=== PATIENT | male | born 1970 | race Two or more races ===

== ENCOUNTER 2020-06-24 13:10 | Outpatient (REF) | payer OTHER, SELFPAY ==
[2020-06-25 09:26] LABS: Rubella IgG Antibody 6.99 Index; Rubeola IgG (Measles) <13.50 AU/mL
[2020-06-27 03:54] LABS: HBsAGNum1 0.15 S/CO (0.00-0.99); Hepatitis B Surface Antigen Negative (Negative)
[2020-06-27 04:08] LABS: HBc Num1 0.06 S/CO (0.00-0.79); Hepatitis B Core Antibody Nonreactive (Nonreactive); ~HepC Num1 0.17 S/CO (0.00-0.79); ~Hepatitis B Surface Antibody NONREACTIVE (Nonreactive); ~Hepatitis C Antibody Nonreactive (Nonreactive)
[2020-06-28 11:12] LABS: TS Negative Control Passed; TS Panel A 0; TS Panel B 0; TS Positive Control Passed; TSpotTB Negative (SeeBelow)
== END 2020-06-24 13:11 | disposition home or self-care (01) ==
LOC: HO.LAB 13:10
PROVIDERS: PCP Internal Medicine; Visit Provider Internal Medicine
DX: Z02.1 Encounter for pre-employment examination (principal)
CPT/HCPCS: 36415; 86481; 86704; 86706; 86735; 86762; 86765; 86787; 86803; 87340

== ENCOUNTER 2020-10-29 09:49 | Emergency (ER) | payer OTHER, SELFPAY ==
--- NOTE | ~2020-10-29 | XR_ITS ---
EXAMINATION: CHEST THORACIC SPINE CLINICAL INFORMATION: Back pain. Chest pain COMPARISON: None TECHNIQUE: Frontal and lateral views of the thoracic spine. Frontal and lateral views of the chest FINDINGS: Thoracic spine: There are 12 rib-bearing vertebrae. The alignment is normal. No acute fracture, focal lesion or loss of volume. Minor marginal osteophytes. The endplates appear sharply defined. The pedicles appear intact. No convincing paraspinal abnormality. CHEST: Devices overlie the patient. Jewelry obscures some of the left lower chest. No mediastinal or hilar mass. The vasculature is normal. I suspect a small patchy opacity at the right base medially perhaps in the medial segment of the middle lobe. The lungs are otherwise well pneumatized and aerated. No pleural fluid or pneumothorax. XR/XR thoracic spine 2V IMPRESSION: Suspect a small opacity in the right middle lobe. This could represent a small area of atelectasis. No acute abnormality of the thoracic spine
--- NOTE | ~2020-10-29 | XR_ITS ---
EXAMINATION: CHEST THORACIC SPINE CLINICAL INFORMATION: Back pain. Chest pain COMPARISON: None TECHNIQUE: Frontal and lateral views of the thoracic spine. Frontal and lateral views of the chest FINDINGS: Thoracic spine: There are 12 rib-bearing vertebrae. The alignment is normal. No acute fracture, focal lesion or loss of volume. Minor marginal osteophytes. The endplates appear sharply defined. The pedicles appear intact. No convincing paraspinal abnormality. CHEST: Devices overlie the patient. Jewelry obscures some of the left lower chest. No mediastinal or hilar mass. The vasculature is normal. I suspect a small patchy opacity at the right base medially perhaps in the medial segment of the middle lobe. The lungs are otherwise well pneumatized and aerated. No pleural fluid or pneumothorax. XR/XR chest 2V IMPRESSION: Suspect a small opacity in the right middle lobe. This could represent a small area of atelectasis. No acute abnormality of the thoracic spine
[2020-10-29 09:54] VITALS: BP 143/92; PULSE 96; RESP 18; TEMP 36.8; O2SAT 99; BMI 35.0
--- NOTE | 2020-10-29 10:02 | ED.BACK ---
HPI - Back Pain/Injury General Chief Complaint: Back Pain/Injury Stated Complaint: BACK PAIN Time Seen by Provider: 10/29/20 10:02 Source: patient Mode of arrival: ambulatory Limitations: no limitations History of Present Illness HPI Narrative: Patient with midback pain, had a coughing attack and heartburn. Had chest pain radiating to the back. pain worse with movement and deep breathing. Patient denies prior stress test. MD elicited complaint: back pain Pertinent past history: prior back pain Onset (ago): day(s) Timing: intermittent and improved Severity: moderate Quality: sharp Location: thoracic spine Radiation: none Exacerbating factors: movement, deep breaths and coughing/sneezing Relieving factors: other (rest) Context: other (had a coughing fit) Related Data Previous Rx's Medication Instructions Recorded pantoprazole 40 mg tablet,delayed 40 mg PO DAILY #90 tab 04/20/20 release meloxicam 15 mg tablet 15 mg PO DAILY #30 tab 05/18/20 amlodipine 10 mg tablet 10 mg PO DAILY #90 tab 10/14/20 cyclobenzaprine 10 mg PO TID #10 tab 10/29/20 naproxen [Naprosyn] 500 mg PO BID #20 tab 10/29/20 Allergies Allergy/AdvReac Type Severity Reaction Status Date / Time No Known Allergies Allergy Verified 05/21/20 07:59 [No Known Allergies*] Review of Systems Constitutional: Constitutional: Reports no additional constitutional complaints Eyes: Eyes: Reports no additional eye complaints ENT: Denies dizziness Cardiovascular: Cardiovascular: Reports no additional cardiovascular complaints Respiratory: Respiratory: Reports as per HPI Gastrointestinal: Gastrointestinal: Reports no additional gastrointestinal complaints Musculoskeletal: Musculoskeletal: Reports no additional musculoskeletal complaints Integumentary/Breasts: Skin/Breast: Denies rash Neurologic: Reports system reviewed and no additional complaints, except as documented, Denies dizziness and Denies Sensory deficit (Neuro) Psychiatric: Psychiatric: Denies anxiety PMFSH Past Medical History Medical History Essential (primary) hypertension GERD without esophagitis History of pilonidal cyst Obesity (BMI 30-39.9) Tobacco use disorder Surgical History History of appendectomy History of incision and drainage Family History Family History Mother Myocardial infarction CVD (cardiovascular disease) Father Stomach cancer Son In good health Daughter In good health Daughter In good health Daughter In good health Social History Social History Alcohol intake: current Alcohol intake frequency: holidays/special occasions only Patient Tobacco Use Status: Current everyday Tobacco user Cigarettes Per Day: 3 Use of substances other than those prescribed or required for medical reasons: No Advance Directives: No Advance Directives Information Provided: No Physical Exam Vital Signs: Vital Signs: Last Vital Signs Temp 98.4 F 10/29/20 12:59 Pulse 69 10/29/20 12:59 Resp 16 10/29/20 12:59 BP 133/89 10/29/20 12:59 Pulse Ox 99 10/29/20 12:59 Body Mass Index 35.0 Const: General: healthy appearing Nutritional Appearance: average body habitus Orientation/consciousness: oriented to person and patient oriented x3 Limitations: no limitations HENMT: Head: Yes normal to inspection Ears: external ears normal General nose exam: Normal external nose present Mouth: Normal oral and palatal mucosa present and oropharynx normal Throat: Yes posterior oropharynx normal Eyes: General: appearance normal, both eyes and all related structures Neck: Other: supple Neck: Yes normal visual inspection Chest: Chest palpation & inspection: normal inspection of the chest Resp: Auscultation: clear to auscultation bilaterally Cardio: Jugular venous distension: no JVD Rate: regular rate Rhythm: regular rhythm Heart sounds: S1 normal heart sound present and S2 normal heart sound present GI: Inspection: Yes normal to inspection Palpation (GI): Soft to palpation, nontender and No hepatosplenomegaly present Auscultation: normal bowel sounds Back/Spine/Pelvis: Other: mid thoracic back pain to palpation Skin: General skin exam: no rashes or lesions noted Neuro: General: oriented to person and patient oriented x3 Cranial nerves: Yes CN's II-XII intact bilaterally Motor exam (neuro): 5/5 motor strength present throughout Sensory Exam: No Sensory deficit (Neuro) Extrem: General: Yes normal to inspection Psych: Appearance: grossly normal Course Reevaluation(s) Reevaluation #1: Patient with no evidence of cardiac disease, EKG, troponin, are normal. Xray are normal, Patient with point tenderness will dc on NSAIDs and flexeril Time: 14:42 MDM - Back Pain/Injury Lab Data Result diagrams: 10/29/20 13:20 10/29/20 10:30 Labs: Lab Results 10/29/20 10/29/20 10/29/20 Range/Units 10:30 10:30 13:20 WBC 8.7 (4.8-10.8) X10*3/uL RBC 4.39 L (4.60-5.80) X10*6/uL Hgb 14.0 (14.0-18.0) g/dl Hct 40.8 L (42-52) % MCV 92.9 (80-98) fL MCH 31.9 (27.0-33.0) pg MCHC 34.3 (31.0-36.0) g/dl RDW 11.7 (11.0-16.0) % Plt Count 246 (160-400) X10*3/uL MPV 9.6 (9.4-12.4) fL Immature Gran % (Auto) 0.2 (0.0-0.4) % Neut % (Auto) 60.8 (45-73) % Lymph % (Auto) 26.9 (20-40) % [place] % (Auto) 9.1 (2-11) % Eos % (Auto) 2.4 (0-4) % Baso % (Auto) 0.6 (0-2) % Lymph # (Auto) 2.3 (1.2-4.9) X10*3/uL [place] # (Auto) 0.8 (0.1-1.2) X10*3/uL Eos # (Auto) 0.2 (0.0-0.4) X10*3/uL Baso # (Auto) 0.1 (0.0-0.2) X10*3/uL Abs Immat Gran (auto) 0.02 (0.00-0.03) X10*3/uL Absolute Neuts (auto) 5.3 (2.0-8.3) X10*3/uL Absolute Nucleated RBC 0.000 (0.0-0.012) X10*3/uL Nucleated RBC % (auto) 0.0 (0.0-0.2) /100WBC Sodium 139 (135-145) mmol/L Potassium 4.5 (3.3-5.1) mmol/L Chloride 107 (96-108) mmol/L Carbon Dioxide 24 (22-29) mmol/L Anion Gap 13 (12-20) BUN 10 (9-16) mg/dL Creatinine 0.86 (0.5-1.4) mg/dL Estim Creat Clear Calc 106.5 Estimated GFR > 60 Random Glucose 91 (60-115) mg/dL Calcium 8.9 (8.4-10.2) mg/dL Total Bilirubin 0.5 (0.0-1.0) mg/dL Direct Bilirubin 0.2 (0.0-0.5) mg/dL AST 29 (5-37) U/L ALT 20 (0-40) U/L Alkaline Phosphatase 92 (39-117) U/L Troponin I High Sens < 3.5 (<3.5-35.0) ng/L Total Protein 7.3 (6.5-8.0) g/dL Albumin 4.0 (3.5-5.0) g/dL Lipase 26 (8-78) U/L Imaging Data Chest x-ray: Radiologist's impression: Suspect a small opacity in the right middle lobe. This could represent a small area of atelectasis. No acute abnormality of the thoracic spine thoracic spine: Radiologist's impression: Suspect a small opacity in the right middle lobe. This could represent a small area of atelectasis. No acute abnormality of the thoracic spine ECG Data Attestation: I personally reviewed and interpreted this ECG as follows: Interpretation: normal sinus rate of 85, no st or twave changes Discharge Plan Discharge Clinical Impression: Thoracic back pain Patient Disposition: Home, Self-Care Instructions: Back Pain (ED) Prescriptions: New cyclobenzaprine 10 mg tablet 10 mg PO TID Qty: 10 RF: 0 naproxen [Naprosyn] 500 mg tablet 500 mg PO BID Qty: 20 RF: 0 No Action pantoprazole 40 mg tablet,delayed release (DR/EC) 40 mg PO DAILY Qty: 90 RF: 1 meloxicam 15 mg tablet 15 mg PO DAILY Qty: 30 RF: 0 amlodipine 10 mg tablet 10 mg PO DAILY Qty: 90 RF: 1 Referrals: Po,Trae Keenan MD [Primary Care Provider] - 5 days
--- NOTE | 2020-10-29 10:05 | ECG_ITS ---
Test Reason : BACK PAIN Blood Pressure : / mmHG Vent. Rate : 087 BPM Atrial Rate : 087 BPM P-R Int : 154 ms QRS Dur : 102 ms QT Int : 362 ms P-R-T Axes : 052 -06 017 degrees QTc Int : 435 ms Normal sinus rhythm Normal ECG No previous ECGs available Referred By: Iglesia Harmon Electronically Signed By:ASHLEY CASTLE MD
[2020-10-29 10:13] VITALS: BP 136/92; PULSE 93; RESP 20; O2SAT 98
--- NOTE | 2020-10-29 10:38 | PC.NURSE ---
lungs - cta all lobes.
[2020-10-29 11:00] LABS: Alanine Aminotransferase 20 U/L (0-40); Alkaline Phosphatase 92 U/L (39-117); Anion Gap 13 (12-20); Aspartate Amino Transferase 29 U/L (5-37); Bilirubin Direct 0.2 mg/dL (0.0-0.5); Bilirubin Total 0.5 mg/dL (0.0-1.0); Blood Urea Nitrogen 10 mg/dL (9-16); Calcium 8.9 mg/dL (8.4-10.2); Carbon Dioxide 24 mmol/L (22-29); Chloride 107 mmol/L (96-108); Creatinine Clr Calc Pharmacy 106.5; Estimated Glomerular Filt Rate > 60; Glucose Random 91 mg/dL (60-115); Lipase 26 U/L (8-78); Potassium 4.5 mmol/L (3.3-5.1); Sodium 139 mmol/L (135-145); Total Protein 7.3 g/dL (6.5-8.0)
[2020-10-29 11:03] LABS: Troponin-I High Sensitivity < 3.5 ng/L (<3.5-35.0)
[2020-10-29 12:59] VITALS: BP 133/89; PULSE 69; RESP 16; TEMP 36.9; O2SAT 99
[2020-10-29] MEDS: Ketorolac Tromethamine 15 MG/ML VIAL 30 MG IVPUSH (13:04)
[2020-10-29] MEDS: Famotidine 20 MG TABLET PO (13:04)
[2020-10-29 14:01] LABS: Basophils Absolute Auto 0.1 X10*3/uL (0.0-0.2); Basophils Percent Auto 0.6 % (0-2); Eosinophils Absolute Auto 0.2 X10*3/uL (0.0-0.4); Eosinophils Percent Auto 2.4 % (0-4); Hematocrit 40.8 % (42-52); Imm Gran Abs Auto 0.02 X10*3/uL (0.00-0.03); Imm Gran Pct Auto 0.2 % (0.0-0.4); Lymphocytes Absolute Auto 2.3 X10*3/uL (1.2-4.9); Lymphocytes Percent Auto 26.9 % (20-40); Mean Corpuscular HGB Conc 34.3 g/dl (31.0-36.0); Mean Corpuscular Hemoglobin 31.9 pg (27.0-33.0); Mean Corpuscular Volume 92.9 fL (80-98); Mean Platelet Volume 9.6 fL (9.4-12.4); Monocytes Absolute Auto 0.8 X10*3/uL (0.1-1.2); Monocytes Percent Auto 9.1 % (2-11); Neutrophils Absolute Auto 5.3 X10*3/uL (2.0-8.3); Neutrophils Percent Auto 60.8 % (45-73); Platelet Count 246 X10*3/uL (160-400); Red Blood Count 4.39 X10*6/uL (4.60-5.80); Red Cell Distribution Width 11.7 % (11.0-16.0); White Blood Count 8.7 X10*3/uL (4.8-10.8)
[2020-10-29 14:59] VITALS: BP 133/88; PULSE 68; RESP 16; O2SAT 98
== END 2020-10-29 15:01 | disposition home or self-care (01) ==
PROVIDERS: Emergency Provider Emergency Medicine; PCP Internal Medicine
DX: M54.6 Pain in thoracic spine (principal); I10 Essential (primary) hypertension; F17.210 Nicotine dependence, cigarettes, uncomplicated
CPT/HCPCS: 36415; 71046; 72070; 80048; 80076; 83690; 84484; 85025; 93005; 96374; 99285; J1885

== ENCOUNTER 2021-06-15 08:33 | Outpatient (REF) | payer OTHER, SELFPAY ==
--- NOTE | ~2021-06-15 | XR_ITS ---
EXAMINATION: XR SHOULDER, RIGHT CLINICAL INFORMATION: Right shoulder pain COMPARISON: None TECHNIQUE: Three views of the right shoulder. FINDINGS: No fracture or dislocation. The glenohumeral joint is well aligned. The joint space is maintained. The acromioclavicular joint is intact. The visualized lung is clear. The visualized ribs are intact. XR/XR shoulder RT min 2V IMPRESSION: Unremarkable appearance of the right shoulder.
== END 2021-06-15 08:34 | disposition home or self-care (01) ==
LOC: HO.HOSX 08:33
PROVIDERS: Visit Provider Physician Assistant
DX: M75.81 Other shoulder lesions, right shoulder (principal)
CPT/HCPCS: 20610; 73030; J1040

== ENCOUNTER 2022-05-16 09:41 | Outpatient (REF) | payer OTHER, SELFPAY ==
[2022-05-16 09:56] LABS: MANUAL DIFF FLAG NO
[2022-05-16 10:45] LABS: Basophils Absolute Auto 0.1 X10*3/uL (0.0-0.2); Basophils Percent Auto 0.6 % (0-2); Eosinophils Absolute Auto 0.2 X10*3/uL (0.0-0.4); Eosinophils Percent Auto 2.5 % (0-4); Hematocrit 40.6 % (42.0-52.0); Imm Gran Abs Auto 0.02 X10*3/uL (0.00-0.03); Imm Gran Pct Auto 0.3 % (0.0-0.4); Lymphocytes Absolute Auto 1.9 X10*3/uL (1.2-4.9); Mean Corpuscular HGB Conc 34.5 g/dl (31.0-36.0); Mean Corpuscular Hemoglobin 30.9 pg (27.0-33.0); Mean Corpuscular Volume 89.6 fL (80.0-98.0); Mean Platelet Volume 9.8 fL (9.4-12.4); Monocytes Absolute Auto 0.5 X10*3/uL (0.1-1.2); Monocytes Percent Auto 6.5 % (2-11); Neutrophils Percent Auto 65.1 % (45-73); Platelet Count 274 X10*3/uL (160-400); Red Blood Count 4.53 X10*6/uL (4.60-5.80); Red Cell Distribution Width 11.8 % (11.0-16.0); White Blood Count 7.7 X10*3/uL (4.8-10.8)
[2022-05-16 11:59] LABS: Alanine Aminotransferase 30 U/L (0-40); Albumin Level 4.4 g/dL (3.5-5.0); Alkaline Phosphatase 87 U/L (39-117); Anion Gap 16 (12-20); Aspartate Amino Transferase 20 U/L (5-37); Bilirubin Total 0.8 mg/dL (0.0-1.0); Blood Urea Nitrogen 17 mg/dL (9-16); Calcium 9.3 mg/dL (8.4-10.2); Carbon Dioxide 20 mmol/L (22-29); Chloride 109 mmol/L (96-108); Cholesterol 195 mg/dL; Estimated Glomerular Filt Rate > 60; Glucose Random 98 mg/dL (60-115); HDL Cholesterol 38 mg/dL; LDL Cholesterol Calculated 111 mg/dl; Potassium 3.8 mmol/L (3.3-5.1); Sodium 141 mmol/L (135-145); Total Protein 7.3 g/dL (6.5-8.0); Triglycerides 233 mg/dL
[2022-05-16 15:52] LABS: Folate 13.8 ng/mL (> or = 4.0); Free T4 (Free Thyroxine) 0.99 ng/dL (0.71-1.85); Prostate Specific Antigen Scr 1.07 ng/mL (<0.05-4.0); Thyroid Stimulating Hormone 1.13 uIU/mL (0.32-4.0); Vitamin B12 277 pg/mL (200-900)
== END 2022-05-16 09:42 | disposition home or self-care (01) ==
LOC: HO.LAB 09:41
PROVIDERS: PCP Internal Medicine; Visit Provider Internal Medicine
DX: Z12.5 Encounter for screening for malignant neoplasm of prostate (principal); E78.00 Pure hypercholesterolemia, unspecified
CPT/HCPCS: 36415; 80053; 80061; 82607; 82746; 84153; 84439; 84443; 85025

== ENCOUNTER → 2022-07-12 07:13 | Outpatient (BNVA) | payer OTHER, SELFPAY | PROVIDERS: PCP Internal Medicine; Referring Provider Internal Medicine; Visit Provider Physician Assistant | DX: Z13.89 Encounter for screening for other disorder (principal) ==

== ENCOUNTER → 2022-08-23 08:09 | Outpatient (BNVA) | payer OTHER, SELFPAY | PROVIDERS: PCP Internal Medicine; Referring Provider Internal Medicine; Visit Provider Physician Assistant ==

== ENCOUNTER 2023-02-07 07:44 | Day surgery (SDC) | payer OTHER, SELFPAY ==
[2023-02-05 16:00] VITALS: BMI 34.0
--- NOTE | 2023-02-06 12:08 | HO.ANESPROP2 ---
Documented by User: Reina Thompson NP 02/06/23 12:09 HPI - Anesthesia Eval Consult details Narrative: 53yo M for Upper Endoscopy PMFSH Active Problems Active Problems: All Active Problems (Updated 08/23/22 @ 08:54 by Shantell Tello PA-C) COVID-19 virus infection (Acute) Tendinitis of right rotator cuff (Acute) Shoulder pain, right (Acute) Trigger finger of right hand (Acute) Frequency of micturition (Acute) Colon cancer screening (Acute) Annual physical exam (Acute) Hypercholesterolemia (Acute) Arthralgia (Acute) Essential (primary) hypertension (Acute) GERD without esophagitis (Acute) Tobacco use disorder (Acute) Obesity (BMI 30-39.9) (Acute) Past Medical History Medical History Hypercholesterolemia Osteoarthritis of lumbar spine Tobacco use disorder Obesity (BMI 30-39.9) GERD without esophagitis Essential (primary) hypertension History of pilonidal cyst Family History Family History Mother Myocardial infarction CVD (cardiovascular disease) Father Stomach cancer Son In good health Daughter In good health Daughter In good health Daughter In good health Surgical History Surgical History History of incision and drainage History of appendectomy Social History Social History Housing: Apartment Alcohol intake: current Alcohol intake frequency: holidays/special occasions only Patient Tobacco Use Status: Current everyday Tobacco user Tobacco use type: Cigarette Cigarettes Per Day: 2 Years Smoked: 40 Smoked in Last 30 Days: Yes e-Cigarette/Vaping Use: Never Used Second Hand Smoke Exposure: No Use of substances other than those prescribed or required for medical reasons: No Are you DNR?: No Advance Directives: No Advance Directives Information Provided: Yes Current occupational status: employed Meds Allergies Allergy/AdvReac Type Severity Reaction Status Date / Time No Known Allergies Allergy Verified 02/07/23 08:15 [No Known Allergies*] Exam Exam Date and Time: February 06, 2023 1208 Height,Weight and Vital Signs: Height 5 ft 4 in Weight 89.811 kg Assessment and Plan Assessment Anesthesia Assessment: Chart Reviewed Documented by User: Mariam Ordonez MD 02/07/23 09:33 PMFSH Past Medical History Medical History Hypercholesterolemia Osteoarthritis of lumbar spine Tobacco use disorder Obesity (BMI 30-39.9) GERD without esophagitis Essential (primary) hypertension History of pilonidal cyst Family History Family History Mother Myocardial infarction CVD (cardiovascular disease) Father Stomach cancer Son In good health Daughter In good health Daughter In good health Daughter In good health Surgical History Surgical History History of incision and drainage History of appendectomy History of Problems with Anesthesia: No Social History Social History Housing: Apartment Alcohol intake: current Alcohol intake frequency: holidays/special occasions only Patient Tobacco Use Status: Current everyday Tobacco user Tobacco use type: Cigarette Cigarettes Per Day: 2 Years Smoked: 40 Smoked in Last 30 Days: Yes e-Cigarette/Vaping Use: Never Used Second Hand Smoke Exposure: No Use of substances other than those prescribed or required for medical reasons: No Are you DNR?: No Advance Directives: No Advance Directives Information Provided: Yes Current occupational status: employed Meds Allergies Allergy/AdvReac Type Severity Reaction Status Date / Time No Known Allergies Allergy Verified 02/07/23 08:15 [No Known Allergies*] Exam Airway Mallampati Class: III TM Dist: >3cm Neck ROM: Full Loose/Missing/Broken Teeth: No Heart: RRR Lungs: CTA Assessment and Plan Assessment Anesthesia Assessment: Anesthesia Plan Discussed Final Anesthetic Review History of Problems with Anesthesia: No NPO: Yes ASA Class: II Final Preanesthetic Review: Meds/Allgs Chart Reviewed, Consent Obtained/Reviewed and Anes Risks/Benef Reviewed Patient Risk: Low Procedure Risk: Intermediate Anesthetic Plan Anesthetic Plan: MAC: Disposition: Standard PACU
[2023-02-07 08:15] VITALS: BP 157/84; PULSE 88; RESP 16; TEMP 36.9; O2SAT 100; BMI 34.3
[2023-02-07] MEDS: Lactated Ringers 1,000 ML 100 ML IVCONT (08:38)
--- NOTE | 2023-02-07 09:27 | MHC.SHP ---
Pre-Procedural Eval Section A Date of Service: 02/07/23 Section B Chief Complaint: Gastro-esophageal reflux disease without esophagit Relevant Family History (Specify if Yes): Yes Relevant Social History: Tobacco Use Present Medications: see Short Stay Collaborative assessment Medical History: Significant History (Hypercholesterolemia Osteoarthritis of lumbar spine Tobacco use disorder Obesity (BMI 30-39.9) GERD without esophagitis Essential (primary) hypertension History of pilonidal cyst) History of Previous Operations: Relevant previous surgery/procedure and date(s) (appendectomy) Allergies: Allergies Allergy/AdvReac Type Severity Reaction Status Date / Time No Known Allergies Allergy Verified 02/07/23 08:15 [No Known Allergies*] Review of Systems Sugical H&P ROS: Negative: Constitution, Cardiovascular, Respiratory, Neurological, Psychiatric, Hem-Onc, Allergic/Immunologic, Gastrointestinal, Genitourinary, Musculoskeletal, Integumentary, Endocrine and Eyes/Ears/Nose/Throat Exam Surgical H&P Exam: Normal: HEENT, Normal: Heart, Normal: Lungs, Normal: Extremities, Normal: Abdomen, Normal: Skin and Normal: Neurological Plan Diagnosis/Plan: Unchanged I have reviewed the history and physical and performed a pertinent physical examination on my patient. No changes have occurred unless specified. Time Spent With Patient Time: Total time managing care of this patient today ____ minutes.
--- NOTE | 2023-02-07 09:28 | W.PM.OPN ---
Operative Note Operative Note Date of Service: 02/07/23 Narrative: Procedure Description: EGD Indication: GERD Anesthesia: MAC FLEXIBLE TRANSORAL UPPER GASTROINTESTINAL ENDOSCOPY UPPER ENDOSCOPY Consent: Indications for the procedure and potential complications of bleeding, perforation, reaction to medications and missed diagnosis were discussed with the patient and informed consent was obtained. Instrument: Olympus GIF H 190 J mid size upper endoscope Monitoring: Vital signs and clinical assessment, continuous EKG monitoring, Pulse oximetry, Carbon Dioxide monitoring and blood pressure monitoring were done throughout the procedure. Procedure: The patient was placed in the left lateral decubitis position and pre-procedure medications were administered and a bite block was placed. The endoscope was inserted into the mouth and advanced under direct vision to the third part of duodenum. A careful inspection was made as the upper endoscope was withdrawn including a retroflexed examination of the proximal stomach; Findings and interventions are described below. Findings: Larynx:normal Esophagus: GE junction at 38 cm, diaphragm hiatus at 38 cm, no varices or esophagitis, bx taken from GEJ, distal esophagus and proximal esophagus Stomach: Patchy gastric erythema. Biopsies were obtained. Grade 2 flap valve on retroflexed examination of the cardia. Duodenum: Normal bulb and descending duodenum, Intervention: Biopsies as noted above Impression/Findings: gastritis PLAN: await bx results if esophageal bx neg can consider VILLA smoking cessation advice and GERD precautions
[2023-02-07 10:00] VITALS: BP 117/62; PULSE 82; RESP 20; TEMP 36.8; O2SAT 99
[2023-02-07 10:15] VITALS: BP 120/63; PULSE 82; RESP 16; O2SAT 98
[2023-02-07 10:27] VITALS: BP 134/76; PULSE 83; RESP 16; TEMP 36.4; O2SAT 98
== END 2023-02-07 11:31 | disposition home or self-care (01) ==
PROVIDERS: PCP Internal Medicine; Visit Provider Internal Medicine Gastroenterology
PROC: 0DJ08ZZ Inspection of Upper Intestinal Tract, Via Natural or Artificial Opening Endoscopic (ICD-10-PCS; CPT 43235; principal; 2023-02-07 10:00)
DX: K29.70 Gastritis, unspecified, without bleeding (principal); K21.9 Gastro-esophageal reflux disease without esophagitis; I10 Essential (primary) hypertension; E78.00 Pure hypercholesterolemia, unspecified; F17.210 Nicotine dependence, cigarettes, uncomplicated; E66.9 Obesity, unspecified; Z68.34 Body mass index [BMI] 34.0-34.9, adult; Z79.899 Other long term (current) drug therapy
CPT/HCPCS: 43239; 88305; 88342; Q9968

== ENCOUNTER → 2023-02-07 07:44 | Outpatient (BNV) | payer OTHER, SELFPAY | PROVIDERS: PCP Internal Medicine; Visit Provider Internal Medicine Gastroenterology | DX: K21.9 Gastro-esophageal reflux disease without esophagitis (principal); K29.70 Gastritis, unspecified, without bleeding | CPT/HCPCS: 43239 ==

== ENCOUNTER 2023-02-21 11:57 | Outpatient (AMB) | payer OTHER, SELFPAY ==
[2023-02-21 11:56] VITALS: BP 161/87; PULSE 86; BMI 35.0
--- NOTE | 2023-02-21 11:56 | A.OFFVIS_ITS ---
Intake Vital Signs 02/21/23 11:56 Height 5 ft 4 in Weight 204 lb 2.369 oz BMI 35.0 BP 161/87 H Blood Pressure Location Rt brachial Position Sitting Pulse 86 Pulse Source Pulse Oximeter Intake Visit Reasons: colo results Intake Note: Pt presents to the office today for a s/p colonoscopy. Pt states he is feeling well and denies any GI concerns at this time. Allergies No Known Allergies [No Known Allergies*] Allergy (Verified 02/21/23 11:57) Medication List - Last Reconciled 02/21/23 by Shantell Tello PA-C amlodipine 10 mg PO DAILY methylcellulose (laxative) (Citrucel) 500 mg PO TID pantoprazole 40 mg PO DAILY simethicone (Gas Relief (simethicone)) 125 mg PO BID-TID PRN 30 days sucralfate 1 g PO BID PRN 4 weeks HPI HPI Comments History of Present Illness Details A 53 y/o male with acid reflux, f/u after EGD- In somewhat anxious, BP of, be sure to take medications Reviewed procedure report, path and recommendation Taking ppi- feels improved-dietary modifications beneficial He does have abdominal bloating he does admit he has a lot of onions He questions regarding it procedure with answered his satisfaction No nausea, vomiting, hematemesis, hematochezia fever or chills No chest pain, shortness breath PFSH Medical History Hypercholesterolemia Osteoarthritis of lumbar spine Tobacco use disorder Obesity (BMI 30-39.9) GERD without esophagitis Essential (primary) hypertension History of pilonidal cyst Surgical History History of incision and drainage History of appendectomy Family History Mother Myocardial infarction CVD (cardiovascular disease) Father Stomach cancer Son In good health Daughter In good health Daughter In good health Daughter In good health Social History Housing: Apartment Alcohol intake: current Alcohol intake frequency: holidays/special occasions only Patient Tobacco Use Status: Current everyday Tobacco user Tobacco use type: Cigarette Cigarettes Per Day: 2 Years Smoked: 40 e-Cigarette/Vaping Use: Never Used Second Hand Smoke Exposure: No Current occupational status: employed Physical Exam Vital Signs: Last Vital Signs Pulse 86 02/21/23 11:56 BP 161/87 H 02/21/23 11:56 BMI result Body Mass Index 35.0 Eyes Sclerae: sclerae normal Resp Effort & Inspection: normal respiratory effort and able to speak in complete sentences Auscultation: no rales Psych Appearance: grossly normal and well kempt Mental Status: mental status grossly normal Speech and movement: Normal speech and movement present and Clear speech present Affect: normal affect Attitude: cooperative Thought process: Normal thought process present Thought content: Normal thought content present Results Reviewed Results Reviewed: Impression/Findings: gastritis PLAN: await bx results if esophageal bx neg can consider VILLA smoking cessation advice and GERD precautions Name: Chase Davis Age/Sex: 53/M Attending: Chevy Siddiqui MD : 1970 Submitted by: Chevy Siddiqui MD Copies to: Trae Ramsey MD MR #: [id number] Status: [facility] Collected: 02/07/23 Location: [facility] Received: 02/07/23 Diagnosis A. Stomach, biopsy: Gastric antral and body mucosa with mild chronic inactive gastritis; negative for Helicobacter pylori, intestinal metaplasia and dysplasia. B. Gastroesophageal junction, biopsy: Gastric cardia type mucosa with mild chronic inactive inflammation; no squamous mucosa seen; negative for intestinal metaplasia and dysplasia. C. Esophagus, distal, biopsy: Squamous mucosa within normal limits; negative for inflammation (including intraepithelial eosinophils), fungal organisms, intestinal metaplasia and dysplasia. D. Esophagus, proximal, biopsy: Squamous mucosa within normal limits; negative for inflammation (including intraepithelial eosinophils), fungal organisms, intestinal metaplasia and dysplasia. Clinical History Pre-Op Dx: Gastro-esophageal reflux disease without esophagitis Post-Op Dx: Gastritis Microscopic Description Microscopic sections reviewed. Material Received A. Stomach bx's B. GE junction bx's C. Distal esophagus bx's D. Proximal esophagus bx's Gross Description Received in 4 parts. Part A: Received in formalin labeled ?stomach bx's? are 5 glistening, semitranslucent, ortega irregular and rectangular tissue fragments ranging from 0.15-0.3 cm in greatest dimension which are submitted in toto in a single cassette labeled A. Part B: Received in formalin labeled ?GE junction bx's (sic)? is a 0.25 cm in greatest dimension glistening, semitranslucent, ortega-pink irregular tissue fragment which is submitted in toto in a single cassette labeled B. Part C: Received in formalin labeled ?distal esophagus bx's? are 3 glistening, semitranslucent, samuels-white Patient: Chase Davis Age/Sex: 53/M MR#: [id number] Page 1 of 2 Assessment & Plan Assessment & Plan (1) GERD without esophagitis: Comment: Continue PPI Avoid culprits Code(s): K21.9 - Gastro-esophageal reflux disease without esophagitis Plan: Will monitor symptoms Continue PPI Reflux precautions Review [place]- (2) Bloating: Code(s): R14.0 - Abdominal distension (gaseous) Plan Continue ppi gasx- FODMAP Reflux precautions Review [facility] F/U prn Medications: Refilled simethicone (Gas Relief (simethicone)) 125 mg PO BID-TID 30 days PRN 90 tabs 2RF abdominal distention Patient Instructions: Will monitor symptoms Continue PPI Reflux precautions, FODMAP, literature given Review [facility] Call with questions or concerns Follow-up 3 months Coding Level of Care Code Est Pt Level 3 (77375) Diagnoses GERD without esophagitis K21.9 Bloating R14.0 Time Spent (min) 20
== END 2023-02-21 12:32 | disposition home or self-care (01) ==
PROVIDERS: PCP Internal Medicine; Visit Provider Physician Assistant
DX: K21.9 Gastro-esophageal reflux disease without esophagitis (principal); R14.0 Abdominal distension (gaseous)
CPT/HCPCS: 99213

== ENCOUNTER → 2023-02-21 11:57 | Outpatient (BNVA) | payer OTHER, SELFPAY | PROVIDERS: PCP Internal Medicine; Visit Provider Physician Assistant ==

== ENCOUNTER 2023-06-17 11:04 | Outpatient (AMB) | payer OTHER, SELFPAY ==
--- NOTE | 2023-06-17 11:10 | MHC.PC.OV ---
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 Patient's colonoscopy is up-to-date review of the notes in February was seen by Gastroenterology EGD done continuing with PPI. Last blood work was done in May 2022 showing an elevated triglyceride to 233 and low vitamin B12. 130-135- /80-85. need refill on pantorprazole. had covid last week [facility] Medical History Hypercholesterolemia Osteoarthritis of lumbar spine Tobacco use disorder Obesity (BMI 30-39.9) GERD without esophagitis Essential (primary) hypertension History of pilonidal cyst Surgical History History of incision and drainage History of appendectomy Family History Mother Myocardial infarction CVD (cardiovascular disease) Father Stomach cancer Son In good health Daughter In good health Daughter In good health Daughter In good health Social History Housing: Apartment Alcohol intake: current Alcohol intake frequency: holidays/special occasions only Patient Tobacco Use Status: Current everyday Tobacco user Tobacco use type: Cigarette Cigarettes Per Day: 2 Years Smoked: 40 e-Cigarette/Vaping Use: Never Used Second Hand Smoke Exposure: No Current occupational status: employed Cognitive needs: No Hearing needs: No Vision needs: No Questionnaire Thrive Questionnaire Date Thrive assessed: 05/16/22 SUSANNAH-7 AMB Questionnaire SUSANNAH-7 Date SUSANNAH - 7 assessed: 05/16/22 Source: Developed by Drs. Roger Nava, Gregoria Foster, Broderick Araujo and colleagues, with an educational mayi from [employer]. Physical exam (Primary Care) Tobacco/Smoking Status: Tobacco use Status Tobacco use date assessed 06/17/23 06/17/23 11:13 Patient Tobacco Use Status Current everyday Tobacco 06/17/23 11:11 Tobacco use type Cigarette 06/17/23 11:11 e-Cigarette/Vaping Use Never Used 06/17/23 11:11 Thrive Assessment: Date of Thrive Assessment Date Thrive assessed 05/16/22 06/17/23 11:11 Telehealth Telehealth Location of provider rendering services: practice address Location of patient: address on file Patient Identification confirmed using: Name, : Yes Telehealth method: voice only (android ) Patient verbally consented to treatment: Yes Patient verbally consented to billing insurance company: Yes Patient informed of any privacy concerns related to visit: Yes Minutes spent on Phone/Video with Pt.: 25 Assessment and Plan Assessment & Plan (1) Tobacco use disorder: Comment: 1981 half pack per day Code(s): F17.200 - Nicotine dependence, unspecified, uncomplicated Plan: Patient advised to stop smoking! (2) Obesity (BMI 30-39.9): Code(s): E66.9 - Obesity, unspecified Plan: Diet and exercise (3) GERD without esophagitis: Comment: Continue PPI EGD 2022 Avoid culprits Code(s): K21.9 - Gastro-esophageal reflux disease without esophagitis Plan: Avoid the foods that causes that usually spicy foods, tomato products, juices, coffee, soda and foods that your sensitive to. After eating do not lie down, allow 3-4 hours before in lie down. And keep the head of bed above 30 degrees to avoid the acid from going up. EGD done by Gastroenterology (4) Essential (primary) hypertension: Code(s): I10 - Essential (primary) hypertension Plan: Continue with blood pressure medication. Decrease salt intake and exercise on amlodipine 10 mg once a day (5) Hypercholesterolemia: Code(s): E78.00 - Pure hypercholesterolemia, unspecified Plan: Avoid fried foods, chicken skin, eggs, butter margarine, pastries and meat. Be it pork or beef they have a lot of cholesterol LDL goal of less than 130 and triglyceride of less than 150. (6) Vitamin B 12 deficiency: Code(s): E53.8 - Deficiency of other specified B group vitamins Plan: Discussed about getting vitamin B12 (7) COVID-19 virus infection: Comment: 01/2022, 06/2023 Code(s): U07.1 - COVID-19 Plan: For the sore throat can take Cepacol lozenges, discussed about Delsym to help with dry cough so she can rest and advised to increase oral fluids. Patient also can take Tylenol for chills and fever. Medications: Refilled pantoprazole 40 mg PO DAILY 90 tabs 1RF Coding Level of Care Code Tele Est Pt Level 4 (65928) Diagnoses Tobacco use disorder F17.200 Obesity (BMI 30-39.9) E66.9 GERD without esophagitis K21.9 Essential (primary) hypertension I10 Hypercholesterolemia E78.00 Vitamin B 12 deficiency E53.8 COVID-19 virus infection U07.1
== END 2023-06-17 12:58 | disposition home or self-care (01) ==
LOC: HO.HMGH 11:04
PROVIDERS: PCP Internal Medicine; Visit Provider Internal Medicine
DX: I10 Essential (primary) hypertension (principal); E78.00 Pure hypercholesterolemia, unspecified; F17.210 Nicotine dependence, cigarettes, uncomplicated; K21.9 Gastro-esophageal reflux disease without esophagitis; E53.8 Deficiency of other specified B group vitamins; U07.1 COVID-19
CPT/HCPCS: 99214

== ENCOUNTER 2023-10-18 12:18 | Outpatient (AMB) | payer OTHER, SELFPAY ==
--- NOTE | 2023-10-18 12:42 | MHC.PC.OV ---
Vital Signs 10/18/23 12:43 Height 5 ft 4 in Weight 202 lb 2 oz BMI 34.7 BP 128/82 Blood Pressure Location Lt brachial Position Sitting Pulse 102 H Pulse Source Pulse Oximeter Pulse Oximetry (%) 98 Oxygen Delivery Method Room Air Intake Visit Reasons: Annual Exam Intake Note: Patient is here today for a physical. Sexual Assault Social Worker Required: No Accompanied by: Self / Same As Patient Allergies No Known Allergies [No Known Allergies*] Allergy (Verified 10/18/23 12:47) Medication List - Last Reconciled 10/18/23 by Trae Ramsey MD amlodipine 10 mg PO DAILY ibuprofen 200 mg PO Q6H PRN methylcellulose (laxative) (Citrucel) 500 mg PO TID pantoprazole 40 mg PO DAILY simethicone (Gas Relief (simethicone)) 125 mg PO BID-TID PRN 30 days sucralfate 1 g PO BID PRN 4 weeks Tobacco use date assessed: 06/17/23 Dental Screening Dental Screen Date: 06/17/23 HPI Annual Exam HPI Details 53-year-old obese male smoker with GERD hypertension hypercholesterolemia coming in for physical exam patient was last seen in June 2023. Last colonoscopy was 2020. complains of numbness of the legs in am 2 month. spoke about lung cancer screening program - patient declined [facility] Medical History (Updated 10/18/23 @ 13:08 by Trae Ramsey MD) Low back pain Colon cancer screening Hypercholesterolemia Osteoarthritis of lumbar spine Tobacco use disorder Obesity (BMI 30-39.9) GERD without esophagitis Essential (primary) hypertension History of pilonidal cyst Surgical History History of incision and drainage History of appendectomy Family History Mother Myocardial infarction CVD (cardiovascular disease) Father Stomach cancer Son In good health Daughter In good health Daughter In good health Daughter In good health Social History (Updated 10/18/23 @ 12:51 by Trae Ramsey MD) Housing: Apartment Alcohol intake: current Alcohol intake frequency: holidays/special occasions only Comment: 2x a month5 -6 drinks Patient Tobacco Use Status: Current everyday Tobacco user Tobacco use type: Cigarette Cigarettes Per Day: 2 Years Smoked: 40- 6 cigaretttes a day e-Cigarette/Vaping Use: Never Used Second Hand Smoke Exposure: No service: No Current occupational status: employed 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 1. Little interest or pleasure in doing things: not at all 2. Feeling down, depressed, or hopeless: not at all 3. Trouble falling or staying asleep, or sleeping too much: not at all 4. Feeling tired or having little energy: not at all 5. Poor appetite or overeating: not at all 6. Feeling bad about yourself - or that you are a failure or have let yourself or your family down: not at all 7. Trouble concentrating on things, such as reading the newspaper or watching television: not at all 8. Moving or speaking so slowly that other people could have noticed. Or the opposite - being so fidgety or restless that you have been moving around a lot more than usual: not at all 9. Thoughts that you would be better off or of hurting yourself in some way: not at all Total score: 0 Depression Screening Interpretation: Negative Depression Screening Done: Yes Source: Developed by Drs. Roger Nava, Gregoria Foster, Broderick Araujo and colleagues, with an educational mayi from [employer]. Thrive Questionnaire Date Thrive assessed: 10/18/23 I am a: Patient What is your living situation today?: I have a steady place to live Within the past 12 months, did the food you bought not last and you didn't have the money to get more?: Never true Within the past 12 months, did you worry whether your food would run out before you got money to buy more?: Never true Do you have trouble paying for medicines?: No Do you have trouble getting transportation to medical appointments?: No Do you have trouble paying your heating and electricity bill?: No Do you have trouble taking care of your child, family member or friend?: No Do you have trouble with day-to-day activities such as bathing, preparing meals, shopping, managing finances, etc.?: No Are you currently unemployed and looking for a job?: No Are you interested in more education?: No Please select the resources that you would like help with: None Currently or been in a relationship where the following occur: No concerns reported THRIVE Score: 0 AUDIT C Alcohol Use Questionnaire (AUDIT-C) 1. How often do you have a drink containing alcohol?: Monthly or less 2. How many drinks containing alcohol do you have on a typical day when you are drinking?: 1 or 2 3. How often do you have six or more drinks on one occasion?: Never Total Score: 1 SUSANNAH-7 AMB Questionnaire SUSANNAH-7 Date SUSANNAH - 7 assessed: 10/18/23 Feeling nervous, anxious, or on edge: 0 = Not at all Not being able to stop or control worryin = Not at all Worrying too much about different things: 0 = Not at all Trouble relaxin = Not at all Being so restless that it is hard to sit still: 0 = Not at all Becoming easily annoyed or irritable: 0 = Not at all Feeling afraid as if something awful might happen: 0 = Not at all Total SUSANNAH-7 score (0-4 normal; 5-9 mild; 10-14 moderate; 15-21 severe): 0 Source: Developed by Drs. Roger Nava, Gregoria Foster, Broderick Araujo and colleagues, with an educational mayi from [employer]. SUSANNAH-7 Assessment Billing SUSANNAH-7 Assessment Tool: SUSANNAH-7 Assessment 86799 Review of Systems Const Denies poor appetite and Denies weakness Eyes Denies no additional complaints ENT Reports Normal hearing present, Denies dizziness, Denies nasal congestion, Denies tinnitus and Denies sore throat Card Denies chest pain, Denies syncope, Denies rapid heart rate and Denies dyspnea Resp Denies cough and Denies dyspnea GI Denies change in stool character, Reports constipation, Denies diarrhea, Denies nausea and Denies vomiting Denies dysuria and Denies urinary frequency Neuro Reports Normal hearing present, Denies confusion, Denies dizziness, Denies syncope and Denies weakness Psych Denies confusion Physical exam (Primary Care) Vital Signs: Last Vital Signs Pulse 102 H 10/18/23 12:43 BP 128/82 10/18/23 12:43 Pulse Ox 98 10/18/23 12:43 Oxygen Delivery Method Room Air 10/18/23 12:43 BMI result Body Mass Index 34.7 Tobacco/Smoking Status: Tobacco use Status Tobacco use date assessed 06/17/23 10/18/23 12:45 Patient Tobacco Use Status Current everyday Tobacco 10/18/23 12:51 Tobacco use type Cigarette 10/18/23 12:51 e-Cigarette/Vaping Use Never Used 10/18/23 12:51 PHQ-9: PHQ-9 Score PHQ-9: Total score 0 10/18/23 12:48 Depression Screening Interpretation: Negative Thrive Assessment: Date of Thrive Assessment Date Thrive assessed 10/18/23 10/18/23 12:48 Currently or been in a relationship where the following occur: No concerns reported Const General: No confusion Orientation/consciousness: No confusion HENMT Head: Yes normocephalic Ears: external ears normal and TM's normal bilaterally Face and sinus: Yes normal facial exam Mouth: moist mucous membranes Throat: Yes tonsils normal Eyes Conjunctivae: conjunctivae normal Pupils: Equal, round and reactive pupils present and Pupil accommodation reflex normal Direct Ophthalmoscopy: normal light reflex Neck Neck: No lymphadenopathy Thyroid: Thyroid normal Chest Chest palpation & inspection: normal inspection of the chest Resp Effort & Inspection: normal respiratory effort and no audible wheezes Auscultation: clear to auscultation bilaterally, no crackles, no wheezes and lung sounds not diminished Cardio Rate: regular rate Rhythm: regular rhythm Peripheral pulses: radial pulses present and dorsalis pedis present GI Palpation (GI): no masses Auscultation: normal bowel sounds and normoactive bowel sounds Rectal Exam - Male: Yes deferred Skin General skin exam: no rashes or lesions noted Rashes: no rashes Neuro General: No confusion Cranial nerves: Yes Equal, round and reactive pupils present and Yes Normal hearing present Cognition (Neuro): normal cognition Gait exam (Neuro): Normal gait present Motor exam (neuro): 5/5 motor strength present throughout Deep tendon reflexes (DTR's): Right brachioradialis reflex intensity grade: 2+, Left brachioradialis reflex intensity grade: 2+, Right patellar reflex intensity grade: 2+ and Left patellar reflex intensity grade: 2+ Extrem General: No edema Immunizations pneumoc 20-ann marie conj-dip cr(PF) 0.5 mL IM syringe Performing Provider: Trae Ramsey MD Performing Location: [facility] Administered by: RUPA Mcneil on 10/18/23 13:14 Dose Route Admin Location Dispensed Lot Number Expiration Date NDC Efficiency Engineer 0.5 mL IM Left Deltoid 0.5 mL [id number] 09/06/24 [id number] [employer] VIS Given Date VIS Provided VIS Publication Date 10/18/23 Single Vaccine 21 Eligibility Eligibility Date Funding Source Not [facility] Eligible 10/18/23 Private Assessment and Plan Assessment & Plan (1) Annual physical exam: Code(s): Z00.00 - Encounter for general adult medical examination without abnormal findings Plan: Patient is advised to eat healthy, keep well hydrated, keep active and have adequate sleep. (2) Tobacco use disorder: Comment: 1981 half pack per day Code(s): F17.200 - Nicotine dependence, unspecified, uncomplicated Plan: Patient is strongly advised to stop smoking! declined lung cancer screening program (3) Obesity (BMI 30-39.9): Code(s): E66.9 - Obesity, unspecified Plan: Diet and exercise (4) GERD without esophagitis: Comment: Continue PPI EGD 2022 Avoid culprits Code(s): K21.9 - Gastro-esophageal reflux disease without esophagitis Plan: Avoid the foods that causes that usually spicy foods, tomato products, juices, coffee, soda and foods that your sensitive to. After eating do not lie down, allow 3-4 hours before in lie down. And keep the head of bed above 30 degrees to avoid the acid from going up. decline referral to clinical leader (5) Essential (primary) hypertension: Code(s): I10 - Essential (primary) hypertension Plan: Continue with blood pressure medication. Decrease salt intake and exercise on amlodipine 10 mg once a day (6) Hypercholesterolemia: Code(s): E78.00 - Pure hypercholesterolemia, unspecified Plan: Avoid fried foods, chicken skin, eggs, butter margarine, pastries and meat. Be it pork or beef they have a lot of cholesterol LDL goal of less than 130 and triglyceride of less than 150. (7) Vitamin B 12 deficiency: Code(s): E53.8 - Deficiency of other specified B group vitamins Plan: Advised to continue with vitamin B12 (8) Low back pain: Code(s): M54.50 - Low back pain, unspecified Plan: xr of the spine requested (9) Frequency of micturition: Code(s): R35.0 - Frequency of micturition Plan: US bladder requested (10) BPH (benign prostatic hyperplasia): Code(s): N40.0 - Benign prostatic hyperplasia without lower urinary tract symptoms Orders: Orders Free T4 (Free Thyroxine) Today E78.00 - Pure hypercholesterolemia, unspecified Lipid Panel Today E78.00 - Pure hypercholesterolemia, unspecified Vitamin B12 and Folate Today E78.00 - Pure hypercholesterolemia, unspecified Prostate Specific Antigen Scr Today E78.00 - Pure hypercholesterolemia, unspecified UA w Microscopic Today R35.0 - Frequency of micturition Complete Blood Count Auto Diff Today E78.00 - Pure hypercholesterolemia, unspecified Comprehensive Met. Panel Today E78.00 - Pure hypercholesterolemia, unspecified Thyroid Stimulating Hormone Today E78.00 - Pure hypercholesterolemia, unspecified XR lumbar spine 2-3V Today M54.50 - Low back pain, unspecified US bladder Today R35.0 - Frequency of micturition Pneumococcal 20 Immunization Today Z23 - Encounter for immunization Medications: New pneumoc 20-ann marie conj-dip cr(PF) 0.5 mL IM ONCE 0.5 mL 0RF Z23 - Encounter for immunization Coding Level of Care Code Est Pt Prev Care 40-64y(56509) Diagnoses Annual physical exam Z00.00 Tobacco use disorder F17.200 Obesity (BMI 30-39.9) E66.9 GERD without esophagitis K21.9 Essential (primary) hypertension I10 Hypercholesterolemia E78.00 Vitamin B 12 deficiency E53.8 Low back pain M54.50 Frequency of micturition R35.0 BPH (benign prostatic hyperplasia) N40.0 Additional Codes SUSANNAH-7 Assessment Billing - SUSANNAH-7 Assessment Tool: SUSANNAH-7 Assessment [id number] ([id number])
[2023-10-18 12:43] VITALS: BP 128/82; PULSE 102; O2SAT 98; BMI 34.7
== END 2023-10-18 13:16 | disposition home or self-care (01) ==
PROVIDERS: PCP Internal Medicine; Visit Provider Internal Medicine
DX: Z00.00 Encounter for general adult medical examination without abnormal findings (principal); E66.9 Obesity, unspecified; Z68.34 Body mass index [BMI] 34.0-34.9, adult; Z23 Encounter for immunization; F17.210 Nicotine dependence, cigarettes, uncomplicated; K21.9 Gastro-esophageal reflux disease without esophagitis; I10 Essential (primary) hypertension; E78.00 Pure hypercholesterolemia, unspecified; E53.8 Deficiency of other specified B group vitamins; M54.50 Low back pain, unspecified; R35.0 Frequency of micturition; N40.0 Benign prostatic hyperplasia without lower urinary tract symptoms
CPT/HCPCS: 90471; 90677; 99396

== ENCOUNTER 2023-10-30 12:34 | Outpatient (REF) | payer OTHER, SELFPAY ==
--- NOTE | ~2023-10-30 | US_ITS ---
EXAMINATION: US PELVIS LIMITED (BLADDER) CLINICAL INFORMATION: Frequency of micturition. COMPARISON: None available. TECHNIQUE: Real-time imaging of the bladder. FINDINGS: BLADDER: Well distended and normal. Bilateral ureteral jets are demonstrated. Prevoid bladder volume is 259.8 mL. Postvoid bladder volume is 64.3 mL. ADDITIONAL FINDINGS: The prostate gland is mildly enlarged with median lobe hypertrophy indenting the bladder base. US/US bladder IMPRESSION: 1. Mildly enlarged prostate gland with median lobe hypertrophy indenting the bladder base. 2. Post void residual of 63 mL.
== END 2023-10-30 12:35 | disposition home or self-care (01) ==
LOC: HO.US 12:34
PROVIDERS: PCP Internal Medicine; Visit Provider Internal Medicine
DX: R35.0 Frequency of micturition (principal)
CPT/HCPCS: 76857

== ENCOUNTER 2024-01-09 08:27 | Outpatient (REF) | payer OTHER, SELFPAY ==
[2024-01-09 08:47] LABS: MANUAL DIFF FLAG NO
[2024-01-09 09:09] LABS: Basophils Absolute Auto 0.1 X10*3/uL (0.0-0.2); Basophils Percent Auto 0.8 % (0-2); Eosinophils Absolute Auto 0.3 X10*3/uL (0.0-0.4); Eosinophils Percent Auto 3.7 % (0-4); Hematocrit 38.8 % (42.0-52.0); Hemoglobin 13.8 g/dl (14.0-18.0); Imm Gran Abs Auto 0.03 X10*3/uL (0.00-0.03); Imm Gran Pct Auto 0.4 % (0.0-0.4); Lymphocytes Percent Auto 26.8 % (20-40); Mean Corpuscular HGB Conc 35.6 g/dl (31.0-36.0); Mean Corpuscular Hemoglobin 32.3 pg (27.0-33.0); Mean Corpuscular Volume 90.9 fL (80.0-98.0); Mean Platelet Volume 9.6 fL (9.4-12.4); Monocytes Absolute Auto 0.6 X10*3/uL (0.1-1.2); Monocytes Percent Auto 8.4 % (2-11); Neutrophils Absolute Auto 4.4 x10*3/uL (2.0-8.3); Neutrophils Percent Auto 59.9 % (45-73); Platelet Count 299 X10*3/uL (160-400); Red Blood Count 4.27 X10*6/uL (4.60-5.80); Red Cell Distribution Width 11.9 % (11.0-16.0); White Blood Count 7.4 X10*3/uL (4.8-10.8)
[2024-01-09 09:54] LABS: Alanine Aminotransferase 25 U/L (0-40); Albumin Level 4.2 g/dL (3.5-5.0); Alkaline Phosphatase 102 U/L (39-117); Anion Gap 12 (12-20); Aspartate Amino Transferase 17 U/L (5-37); Bilirubin Total 0.5 mg/dL (0.0-1.0); Blood Urea Nitrogen 15 mg/dL (9-16); Calcium 9.1 mg/dL (8.4-10.2); Carbon Dioxide 23 mmol/L (22-29); Chloride 110 mmol/L (96-108); Cholesterol 184 mg/dL (<200); Estimated Glomerular Filt Rate > 60; Glucose Random 101 mg/dL (60-115); HDL Cholesterol 38 mg/dL (>40); LDL Cholesterol Calculated 110 mg/dL (<100); Potassium 3.7 mmol/L (3.3-5.1); Sodium 141 mmol/L (135-145); Total Protein 7.3 g/dL (6.5-8.0); Triglycerides 184 mg/dL (<150)
[2024-01-09 10:02] LABS: Thyroid Stimulating Hormone 1.26 uIU/mL (0.32-4.0)
[2024-01-09 10:28] LABS: Folate 9.3 ng/mL (> or = 4.0); Prostate Specific Antigen Scr 0.88 ng/mL (<0.05-4.0); Vitamin B12 277 pg/mL (200-900)
[2024-01-09 10:33] LABS: Appearance Urine Clear; Color Urine Yellow; Glucose Urine UA Negative (Negative); Leukocyte Esterase Urine Negative (Negative); Nitrite Urine Negative (Negative); Specific Gravity - Urine 1.025 (1.005-1.025); Urine Blood Negative (Negative); Urine Ketones Negative (Negative); Urine Protein Negative (Neg-Trace)
[2024-01-09 10:39] LABS: Bacteria Urine None Seen (None Seen); Hyaline Casts Urine 0-2 /LPF (0-2); RBC Urine 0-2 /HPF (0-2); Squamous Epithelial Cell Urine 0-2 /HPF (0-2); WBC Urine 0-5 /HPF (0-5)
== END 2024-01-09 08:28 | disposition home or self-care (01) ==
LOC: HO.LAB 08:27
PROVIDERS: PCP Internal Medicine; Visit Provider Internal Medicine
DX: E78.00 Pure hypercholesterolemia, unspecified (principal); R35.0 Frequency of micturition; Z12.5 Encounter for screening for malignant neoplasm of prostate
CPT/HCPCS: 36415; 80053; 80061; 81001; 82607; 82746; 84153; 84439; 84443; 85025

== ENCOUNTER 2024-01-21 09:48 | Outpatient (AMB) | payer OTHER, SELFPAY ==
--- NOTE | 2024-01-21 09:48 | A.OFFPC_ITS ---
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 Required: No Allergies No Known Allergies [No Known Allergies*] Allergy (Verified 01/21/24 09:50) Medication List - Last Reconciled 01/21/24 by Clara Cazares PA-C amlodipine 10 mg PO DAILY ibuprofen 200 mg PO Q6H PRN methylcellulose (laxative) (Citrucel) 500 mg PO TID pantoprazole 40 mg PO DAILY simethicone (Gas Relief (simethicone)) 125 mg PO BID-TID PRN 30 days sucralfate 1 g PO BID PRN 4 weeks Tobacco use date assessed: 06/17/23 Dental Screening Dental Screen Date: 06/17/23 HPI 3 mo f/u labs HPI Details 53-year-old obese male smoker with past medical history of GERD, hypertension, hypercholesterolemia last seen by Dr. Ramsey coming in for follow up. Bladder ultrasound completed October 2023 and showed mildly enlarged prostate. Patient states he is using the bathroom up to 4 times per night does not feel like he empties completely he often has difficulty starting a stream and postvoid dribbling. Denies any blood in the urine or pain with urination. At his last visit he was seen for back pain and was ordered for x-rays which were not completed by the patient. He states back and has improved but was still have the x-rays completed as he is still has some residual pain. [facility] Medical History (Updated 11/17/23 @ 11:28 by Trae Ramsey MD) Low back pain Colon cancer screening Hypercholesterolemia Osteoarthritis of lumbar spine Tobacco use disorder Obesity (BMI 30-39.9) GERD without esophagitis Essential (primary) hypertension History of pilonidal cyst Surgical History History of incision and drainage History of appendectomy Family History Mother Myocardial infarction CVD (cardiovascular disease) Father Stomach cancer Son In good health Daughter In good health Daughter In good health Daughter In good health Social History (Updated 10/18/23 @ 12:51 by Trae Ramsey MD) Housing: Apartment Alcohol intake: current Alcohol intake frequency: holidays/special occasions only Comment: 2x a month5 -6 drinks Patient Tobacco Use Status: Current everyday Tobacco user Tobacco use type: Cigarette Cigarettes Per Day: 2 Years Smoked: 40- 6 cigaretttes a day e-Cigarette/Vaping Use: Never Used Second Hand Smoke Exposure: No service: No Current occupational status: employed 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 How often do you have a drink containing alcohol?: Monthly or less 2. How many drinks containing alcohol do you have on a typical day when you are drinking?: 1 or 2 3. How often do you have six or more drinks on one occasion?: Never Total Score: 1 SUSANNAH-7 AMB Questionnaire SUSANNAH-7 Date SUSANNAH - 7 assessed: 10/18/23 Source: Developed by Drs. Roger Nava, Gregoria Foster, Broderick Araujo and colleagues, with an educational mayi from [employer]. Review of Systems Const Denies chills, Denies fever(s) and Denies headache(s) Eyes Denies blurry vision and Denies change in vision ENT Denies dizziness and Denies headache(s) Card Denies chest pain, Denies lightheadedness and Denies dyspnea Resp Denies dyspnea GI Denies abdominal pain, Denies nausea and Denies vomiting Reports difficulty urinating, Denies dysuria, Reports nocturia, Reports urinary frequency, Reports urinary hesitancy, Denies urinary incontinence and Denies urinary urgency Musc Reports no additional complaints and Denies abnormal gait Skin/Breast Reports system reviewed and no additional complaints, except as documented Neuro Denies abnormal gait, Denies dizziness and Denies headache(s) Psych Reports no additional complaints Physical exam (Primary Care) Vital Signs: Last Vital Signs Pulse 89 01/21/24 09:49 BP 158/92 H 01/21/24 10:12 Pulse Ox 98 01/21/24 09:49 Oxygen Delivery Method Room Air 01/21/24 09:49 BMI result Body Mass Index 34.8 Tobacco/Smoking Status: Tobacco use Status Tobacco use date assessed 06/17/23 01/21/24 09:50 Patient Tobacco Use Status Current everyday Tobacco 01/21/24 09:50 Tobacco use type Cigarette 01/21/24 09:50 e-Cigarette/Vaping Use Never Used 01/21/24 09:50 Thrive Assessment: Date of Thrive Assessment Date Thrive assessed 10/18/23 01/21/24 09:50 Const General: cooperative, healthy appearing, comfortable and no acute distress Orientation/consciousness: patient oriented x3 HENMT Head: Yes normocephalic Ears: hearing grossly normal bilaterally General nose exam: Normal external nose present Eyes General: appearance normal, both eyes and all related structures Conjunctivae: conjunctivae normal Neck Neck: Yes full ROM and Yes no lymphadenopathy Resp Effort & Inspection: normal respiratory effort Auscultation: clear to auscultation bilaterally, no crackles, no rales, no rhonchi and no wheezes Cardio Rate: regular rate Rhythm: regular rhythm Skin General skin exam: no rashes or lesions noted Neuro General: patient oriented x3 Gait exam (Neuro): Normal gait present Extrem General: Yes normal to inspection, Yes full ROM and No edema Psych Affect: normal affect Attitude: cooperative Insight: Good insight present (Psych) Judgement: Good judgement present (Psych) Coding Level of Care Code Est Pt Level 4 (86806) Diagnoses Hypercholesterolemia E78.00 Essential (primary) hypertension I10 GERD without esophagitis K21.9 Tobacco use disorder F17.200 Obesity (BMI 30-39.9) E66.9 BPH (benign prostatic hyperplasia) N40.0 Assessment & Plan Assessment & Plan (1) Hypercholesterolemia: Code(s): E78.00 - Pure hypercholesterolemia, unspecified Category: Medical Plan: Avoid foods that are high in cholesterol such as red meat, fried foods, eggs and baked goods. Triglyceride goal of less than 150 and LDL goal of less than 100. Not currently on medical management (2) Essential (primary) hypertension: Code(s): I10 - Essential (primary) hypertension Category: Medical Plan: Continue on current blood pressure medication. Avoid salt intake and encourage healthy diet and regular exercise. Blood pressure elevated in the office advised to take blood pressures at home 3-4 times per week and follow up in 6 weeks. Advised patient to reach out to the office sooner if blood pressures are persistently over 140/90 while at home. Discussed with nurse navigator and appointment will be scheduled in the meantime for repeat blood pressure check with nurse navigator. (3) GERD without esophagitis: Comment: Continue PPI EGD 2022 Avoid culprits Code(s): K21.9 - Gastro-esophageal reflux disease without esophagitis Category: Medical Plan: Avoid trigger foods such as citrus, tomato products, soda, caffeine, spicy foods and other foods that may be irritating to your stomach. Avoid laying flat 3-4 hours after eating and elevate the head of the bed 30 degrees to prevent acid from moving into the esophagus. Continue on pantoprazole (4) Tobacco use disorder: Comment: 1981 half pack per day Code(s): F17.200 - Nicotine dependence, unspecified, uncomplicated Category: Medical Plan: Strongly advised to stop smoking! Smoking cigarettes and the use of tobacco can be harmful. We discussed the importance of stopping and options to aid in smoking cessation. (5) Obesity (BMI 30-39.9): Code(s): E66.9 - Obesity, unspecified Category: Medical Plan: Healthy diet and regular exercise is encouraged. (6) BPH (benign prostatic hyperplasia): Comment: Mild October 2023 Code(s): N40.0 - Benign prostatic hyperplasia without lower urinary tract symptoms Category: Medical Plan: Referral placed for Urology as symptoms are bothersome and interrupting his sleep. Plan This note was constructed using voice recognition software. While every effort has been made to ensure accuracy and plant pathology teacher, still areas may have been included sometimes these areas may affect the content or meeting of the given symptoms. Total time spent caring for the patient today was 30 minutes. This includes time spent before the visit reviewing the chart, time spent during the visit, and time spent after the visit and documentation. Orders: Referrals Urology Referral N40.0 - Benign prostatic hyperplasia without lower urinary tract symptoms
[2024-01-21 09:49] VITALS: BP 154/78; PULSE 89; O2SAT 98; BMI 34.8
[2024-01-21 10:12] VITALS: BP 158/92
== END 2024-01-21 10:18 | disposition home or self-care (01) ==
PROVIDERS: PCP Internal Medicine
DX: E78.00 Pure hypercholesterolemia, unspecified (principal); I10 Essential (primary) hypertension; E66.811 Obesity, class 1; Z68.34 Body mass index [BMI] 34.0-34.9, adult; K21.9 Gastro-esophageal reflux disease without esophagitis; F17.200 Nicotine dependence, unspecified, uncomplicated; N40.0 Benign prostatic hyperplasia without lower urinary tract symptoms

== ENCOUNTER → 2024-01-21 09:48 | Outpatient (BNVA) | payer OTHER, SELFPAY | PROVIDERS: PCP Internal Medicine ==

== ENCOUNTER → 2024-02-06 10:13 | Outpatient (BNVA) | payer OTHER, SELFPAY | PROVIDERS: PCP Internal Medicine ==

== ENCOUNTER 2024-02-06 10:18 | Outpatient (REF) | payer OTHER, SELFPAY | END 2024-02-06 10:19 | disposition home or self-care (01) | LOC: HO.XRAY 10:18 | PROVIDERS: PCP Internal Medicine; Visit Provider Internal Medicine | DX: M54.50 Low back pain, unspecified (principal) | CPT/HCPCS: 72100 ==

== ENCOUNTER 2024-02-10 15:38 | Outpatient (AMB) | payer OTHER, SELFPAY ==
--- NOTE | 2024-02-10 16:06 | A.OFFPC_ITS ---
Vital Signs 02/10/24 16:08 Height 5 ft 4 in Weight 209 lb 0.6 oz BMI 35.9 BP 140/78 H Blood Pressure Location Lt brachial Position Sitting Pulse 99 Pulse Source Pulse Oximeter Pulse Oximetry (%) 97 Oxygen Delivery Method Room Air Intake Visit Reasons: [facility] [place] 01/31 Chest pain Allergies No Known Allergies [No Known Allergies*] Allergy (Verified 02/10/24 16:10) Tobacco use date assessed: 06/17/23 Dental Screening Dental Screen Date: 06/17/23 HPI [facility] [place] 01/31 Chest pain HPI Details 54-year-old obese male smoker with a his tory of hypertension, hypercholesterolemia GERD BPH coming in for follow-up. Last seen in 01/21/2024. ER visit 02/01/2024 presenting with chest pain he took an additional amlodipine. Patient was given to aspirin and nitro which relieved the pain. Had some mild shortness of breath. woke ,coffe and burger after then chest pain- went to urgent center-- given aspirin and nitro pain went away. in the hospital - was told good stress test 02/20/2024 [facility] Medical History (Updated 02/10/24 @ 16:29 by Trae Ramsey MD) Low back pain Colon cancer screening Hypercholesterolemia Osteoarthritis of lumbar spine Tobacco use disorder Obesity (BMI 30-39.9) GERD without esophagitis Essential (primary) hypertension History of pilonidal cyst Surgical History History of incision and drainage History of appendectomy Family History Mother Myocardial infarction CVD (cardiovascular disease) Father Stomach cancer Son In good health Daughter In good health Daughter In good health Daughter In good health Social History (Updated 10/18/23 @ 12:51 by Trae Ramsey MD) Housing: Apartment Alcohol intake: current Alcohol intake frequency: holidays/special occasions only Comment: 2x a month5 -6 drinks Patient Tobacco Use Status: Current everyday Tobacco user Tobacco use type: Cigarette Cigarettes Per Day: 2 Years Smoked: 40- 6 cigaretttes a day Packs per year/per ci.00 e-Cigarette/Vaping Use: Never Used Second Hand Smoke Exposure: No service: No Current occupational status: employed 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 Cognitive needs: No Hearing needs: No Vision needs: No Questionnaire Thrive Questionnaire Date Thrive assessed: 10/18/23 Are you currently unemployed and looking for a job?: No AUDIT C Alcohol Use Questionnaire (AUDIT-C) 1. How often do you have a drink containing alcohol?: Monthly or less 2. How many drinks containing alcohol do you have on a typical day when you are drinking?: 1 or 2 3. How often do you have six or more drinks on one occasion?: Never Total Score: 1 SUSANNAH-7 AMB Questionnaire SUSANNAH-7 Date SUSANNAH - 7 assessed: 10/18/23 Source: Developed by Drs. Roger Nava, Gregoria Foster, Broderick Araujo and colleagues, with an educational mayi from [employer]. Physical exam (Primary Care) Vital Signs: Last Vital Signs Pulse 99 02/10/24 16:08 BP 140/78 H 02/10/24 16:08 Pulse Ox 97 02/10/24 16:08 Oxygen Delivery Method Room Air 02/10/24 16:08 BMI result Body Mass Index 35.9 Tobacco/Smoking Status: Tobacco use Status Tobacco use date assessed 06/17/23 02/10/24 16:07 Patient Tobacco Use Status Current everyday Tobacco 02/10/24 16:07 Tobacco use type Cigarette 02/10/24 16:07 e-Cigarette/Vaping Use Never Used 02/10/24 16:07 Thrive Assessment: Date of Thrive Assessment Date Thrive assessed 10/18/23 02/10/24 16:07 Const General: alert; No acute distress Eyes Conjunctivae: conjunctivae normal Resp Auscultation: clear to auscultation bilaterally Cardio Rate: regular rate Rhythm: regular rhythm GI Inspection: Yes normal to inspection Extrem General: Yes normal to inspection and No edema Coding Level of Care Code Est Pt Level 4 (48650) Diagnoses Essential (primary) hypertension I10 Hypercholesterolemia E78.00 Tobacco use disorder F17.200 GERD without esophagitis K21.9 Obesity (BMI 30-39.9) E66.9 Chest pain, unspecified type R07.9 Chest pain type: unspecified Assessment & Plan Assessment & Plan (1) Essential (primary) hypertension: Code(s): I10 - Essential (primary) hypertension Category: Medical Plan: Continue with blood pressure medication. Decrease salt intake and exercise on amlodipine 10 mg once a day . added lisinopril 5 mg QD (2) Hypercholesterolemia: Code(s): E78.00 - Pure hypercholesterolemia, unspecified Category: Medical Plan: Avoid fried foods, chicken skin, eggs, butter margarine, pastries and meat. Be it pork or beef they have a lot of cholestero LDL goal of below 130 and triglyceride of less than 150 last blood pressure was good (3) Tobacco use disorder: Comment: 1981 half pack per day Code(s): F17.200 - Nicotine dependence, unspecified, uncomplicated Category: Medical Plan: Patient is strongly advised to stop smoking! (4) GERD without esophagitis: Comment: Continue PPI EGD 2022 Avoid culprits Code(s): K21.9 - Gastro-esophageal reflux disease without esophagitis Category: Medical Plan: Stop smoking! Avoid the foods that causes that usually spicy foods, tomato products, juices, coffee, soda and foods that your sensitive to. After eating do not lie down, allow 3-4 hours before in lie down. And keep the head of bed above 30 degrees to avoid the acid from going up. (5) Obesity (BMI 30-39.9): Code(s): E66.9 - Obesity, unspecified Category: Medical Plan: Diet and exercise (6) Chest pain: Code(s): R07.9 - Chest pain, unspecified Category: Medical Qualifiers: Chest pain type: unspecified Qualified Code(s): R07.9 - Chest pain, unspecified Plan: stress test requested Medications: New lisinopril 5 mg PO DAILY 30 tabs 3RF I10 - Essential (primary) hypertension
[2024-02-10 16:08] VITALS: BP 140/78; PULSE 99; O2SAT 97; BMI 35.9
== END 2024-02-10 16:48 | disposition home or self-care (01) ==
LOC: HO.HMCH 15:39
PROVIDERS: PCP Internal Medicine; Visit Provider Internal Medicine
DX: I10 Essential (primary) hypertension (principal); E78.00 Pure hypercholesterolemia, unspecified; E66.9 Obesity, unspecified; Z68.35 Body mass index [BMI] 35.0-35.9, adult; F17.200 Nicotine dependence, unspecified, uncomplicated; K21.9 Gastro-esophageal reflux disease without esophagitis; R07.9 Chest pain, unspecified

== ENCOUNTER → 2024-02-10 15:38 | Outpatient (BNVA) | payer OTHER, SELFPAY | PROVIDERS: PCP Internal Medicine; Visit Provider Internal Medicine ==

== ENCOUNTER → 2024-02-20 08:53 | Outpatient (REF) | payer OTHER, SELFPAY ==
--- NOTE | 2024-02-20 08:56 | CA_ITS ---
Acquisition Time: 2024-02-20 09:26:09 Total Exercise Time: 00:03:44 Test Indications: CHEST PAIN Medications: Protocol: KARI Max HR: 142 BPM 85% of Pred: 167 BPM Max BP: 190/080 mmHG Max Work Load: 5.4 METS Exercise Stress Test with exercise 3 mins 44 secs of Kari Protocol, acieving 83% MPHR, with request to stop due to lightheadness and moderate SOB, no chest discomfort, with frequent isolated PVCs, with hypertensive response to exercise max of 190/80. Without EKG changes meeting criteria for ischemia at achieved workload. In recovery, BP normalized and lightheadedness/ shortness of breath resolved. Test reviewed with Dr Maxwell. Message sent to PCP. Referred By: Trae Ramsey Overread By: LISETTE DAVILA
== END ==
LOC: HO.CARD 08:53
PROVIDERS: PCP Internal Medicine; Visit Provider Internal Medicine
DX: R07.9 Chest pain, unspecified (principal)
CPT/HCPCS: 93017

== ENCOUNTER → 2024-02-20 08:56 | Outpatient (BNV) | payer OTHER, SELFPAY | PROVIDERS: PCP Internal Medicine; Visit Provider Nurse Practitioner Family | DX: I49.3 Ventricular premature depolarization (principal); R03.0 Elevated blood-pressure reading, without diagnosis of hypertension | CPT/HCPCS: 93016; 93018 ==

== ENCOUNTER → 2024-03-16 14:36 | Outpatient (REF) | payer OTHER, SELFPAY ==
--- NOTE | 2024-03-16 14:39 | CA_ITS ---
Transthoracic Echocardiogram Patient (Last, First, Middle): Chase Davis, Gender: Male Date of : 1970 Age: 54 Procedure Date: 03/16/2024 Procedure Type: Transthoracic Echocardiogram Location: OP Height: 162.56 cm Weight: 90.72 kg BSA: 1.96 m2 Heart Rate: bpm BP: 130 / 82 mmHg Field Nurse Case Manager: HEYDI Referring MD: Trae Ramsey MD Manager Primary Care: Franco Aceves MD Symptoms: R07.9 - Chest pain, unspecified Study Quality: Fair ECG Rhythm: Sinus Conclusions: - Essentially normal study Findings Left Ventricle Normal left ventricular size, thickness, and systolic function. The visually estimated ejection fraction is between 55-60%. Spectral Doppler is indicative of a normal filling pattern. Right Ventricle Normal right ventricular cavity size and systolic function. Atria Both atria are normal in size. There is no evidence of interatrial shunt. Aortic Valve Normal aortic valve structure and function. There is no aortic valve stenosis. There is no aortic valve regurgitation. Mitral Valve Normal mitral valve structure and function. There is trace mitral valve regurgitation. There is no mitral valve stenosis. Pulmonic Valve The pulmonic valve was not well visualized. Tricuspid Valve Likely normal tricuspid valve structure and function. There is trace tricuspid valve regurgitation. The right ventricular systolic pressure is normal. The right ventricular systolic pressure is 28 mmHg. Normal right atrial pressure. There is no evidence of pulmonary hypertension. Great Vessels All visible segments of the aorta are normal in size. The pulmonary artery was not well visualized. Venous The inferior vena cava is normal in size and collapses greater than 50% with inspiration. Pericardium/Pleural There is no evidence of pericardial effusion. Prior Study Comparison No prior study available for comparison. Measurements 2D Linear Measurements IVSd: 1.28 0.6-0.9/0.6-1.0 cm LVIDd: 4.37 3.9-5.3/4.2-5.9 cm LVIDd Index: 2.23 2.4-3.2/2.2-3.1 cm/m2 LVIDs: 2.73 2.0-3.6 cm LVPWd: 1.10 0.7-1.1 cm LA Diam: 3.30 2.7-3.8/3.0-4.0 cm LAIDs Index: 1.68 1.5-2.3 cm/m2 LV Mass: 233.06 67-162/88-224 g LV Mass Index: 118.91 43-95/49-115 g/m2 LVOT Diam: 2.30 3.0+(-)1.3 cm 2D Systolic Function EF 4C: 59.40 >55% EF 2C: 56.60 >55% EF BiP: 57.70 >55% Mitral Valve MV Pk E: 0.83 MV PK A: 0.64 MV Decel Time: 181.00 E/A: 1.30 E'Lateral: 16.10 E'Medial: 8.05 E/E' Med: 10.30 E/E' Lat: 5.20 PHT: 53.00 MVA PHT: 4.15 Decel Dickenson: 4.60 Aortic Valve AoV Pk Derrick: 1.62 AoV Mn Derrick: 1.03 AoV VTI: 0.30 AoV Pk Grad: 10.00 Aov Mn Grad: 5.00 ABELARDO Cont.VTI: 2.61 LVOT LVOT Pk Derrick: 1.12 LVOT Mn Derrick: 0.75 LVOT VTI: 0.19 LVOT Pk Grad: 5.00 LVOT Mn Grad: 3.00 LVOT Diam: 2.30 LVOT Area: 4.15 Diastolic Function MV Pk E: 0.83 MV Pk A: 0.64 E/A: 1.30 E'Medial: 8.05 E/E' Med: 10.30 E' Laterial: 16.10 E/E' Lat: 5.20 Right Ventricle TAPSE (mm): 24.80 TVS' Derrick: 17.30 Tricuspid Valve TR Pk Derrick: 2.48 TR Pk Grad: 25.00 RA Press: 3.00 RVSP: 28.00 Great Vessels Aorta Sinus of Valsalva: 2.96 2.0-3.[address] Ridge: 2.67 1.7-3.4 cm Ao Asc: 3.10 2.1-3.4 cm Ao Arch: 2.90 Updated in Other Vendor System with Status of Final Franco Aceves MD electronically signed on 03/16/2024 4:47:09 PM with status of Final
== END ==
LOC: HO.CARD 14:36
PROVIDERS: PCP Internal Medicine; Visit Provider Internal Medicine
DX: R07.9 Chest pain, unspecified (principal)
CPT/HCPCS: 93306

== ENCOUNTER → 2024-03-16 14:39 | Outpatient (BNV) | payer OTHER, SELFPAY | PROVIDERS: PCP Internal Medicine; Visit Provider Internal Medicine Cardiovascular Disease | DX: R07.9 Chest pain, unspecified (principal) | CPT/HCPCS: 93306 ==

== ENCOUNTER 2024-03-19 08:43 | Outpatient (AMB) | payer OTHER, SELFPAY ==
--- NOTE | 2024-03-19 05:22 | A.OFFVIS_ITS ---
Intake Visit Reasons: BPH Intake Note: New patient Presents for BPH Any Urology Medication: None Antibiotic Allergies: None Blood Thinners: None PVR: 55ml's Any Family History (Urological): Bladder Cancer? No Prostate Cancer? No Liner Reroll Tender Required: No Accompanied by: Self / Same As Patient Allergies No Known Allergies [No Known Allergies*] Allergy (Verified 03/19/24 09:29) Medication List - Last Reconciled 03/19/24 by Jason Ramos MD amlodipine 10 mg PO DAILY ibuprofen 200 mg PO Q6H PRN lisinopril 5 mg PO DAILY methylcellulose (laxative) (Citrucel) 500 mg PO TID pantoprazole 40 mg PO DAILY simethicone (Gas Relief (simethicone)) 125 mg PO BID-TID PRN 30 days sucralfate 1 g PO BID PRN 4 weeks tamsulosin (Flomax) 0.4 mg PO BEDTIME HPI Comments Details: Chase Chavarria 54-year-old here for evaluation of BPH symptoms. He is bothered significantly by getting up 3-4 times nighttime. He also states that there is some hesitancy and interrupting of the urinary stream. He denies dysuria. AUA symptom score 22. Bladder scan today PVR 55 mL. I have discussed trial of tamsulosin 0.4 mg at nighttime. Discussed side effects including but not limited to retrograde ejaculation and dizziness. PSA-01/29--0.88 Reviewed: Bladder ultrasound 10/30/2023-mildly enlarged prostate with intention of the prostate into bladder PFSH Medical History Low back pain Colon cancer screening Hypercholesterolemia Osteoarthritis of lumbar spine Tobacco use disorder Obesity (BMI 30-39.9) GERD without esophagitis Essential (primary) hypertension History of pilonidal cyst Surgical History History of incision and drainage History of appendectomy Family History Mother Myocardial infarction CVD (cardiovascular disease) Father Stomach cancer Son In good health Daughter In good health Daughter In good health Daughter In good health Social History Housing: Apartment Alcohol intake: current Alcohol intake frequency: holidays/special occasions only Comment: 2x a month5 -6 drinks Patient Tobacco Use Status: Current everyday Tobacco user Tobacco use type: Cigarette Cigarettes Per Day: 2 Years Smoked: 40- 6 cigaretttes a day e-Cigarette/Vaping Use: Never Used Second Hand Smoke Exposure: No service: No Current occupational status: employed 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 [employer] Cognitive needs: No Hearing needs: No Vision needs: No Review of Systems Const All systems reviewed & are unremarkable except as noted in HPI and below Reports no additional complaints Eyes Reports no additional complaints ENT Reports no additional complaints Card Reports no additional complaints Resp Reports no additional complaints GI Reports no additional complaints Reports as per HPI Musc Reports no additional complaints Skin/Breast Reports system reviewed and no additional complaints, except as documented Neuro Reports no additional complaints Psych Reports no additional complaints Endo Reports no additional complaints Lance/Lymph Reports no additional complaints Aller/Immun Reports no additional complaints Physical Exam Const General: healthy appearing, no acute distress and well developed Orientation/consciousness: patient oriented x3 HEENT Head: Yes normocephalic and Yes atraumatic Eyes Conjunctivae: conjunctivae normal Neck Neck: Yes normal visual inspection Chest Chest palpation & inspection: normal inspection of the chest Resp Effort & Inspection: normal respiratory effort Cardio Rate: regular rate GI Inspection: Yes normal to inspection Skin General skin exam: no rashes or lesions noted Neuro General: patient oriented x3 Psych Appearance: grossly normal Affect: normal affect Office Procedures Post Void Residual Post Residual Void Post Void Residual (PVR): 55 [id number] Void Residual by ultrasound Quality Reporting (2019) Benign Prostatic Hyperplasia ([facility] 771) AUA symptom score: 22 Quality of life due to urinary symptoms: If you were to spend the rest of your life with your urinary condition the way it is now, how would you feel about that?: Mostly dissatisfied Results Reviewed Results Reviewed: Date of Service: 10/30/23 US PELVIS LIMITED (BLADDER) CLINICAL INFORMATION: Frequency of micturition. COMPARISON: None available. TECHNIQUE: Real-time imaging of the bladder. FINDINGS: BLADDER: Well distended and normal. Bilateral ureteral jets are demonstrated. Prevoid bladder volume is 259.8 mL. Postvoid bladder volume is 64.3 mL. ADDITIONAL FINDINGS: The prostate gland is mildly enlarged with median lobe hypertrophy indenting the bladder base. IMPRESSION: 1. Mildly enlarged prostate gland with median lobe hypertrophy indenting the bladder base. 2. Post void residual of 63 mL. Assessment & Plan Assessment & Plan (1) BPH (benign prostatic hyperplasia): Comment: Mild October 2023 Code(s): N40.0 - Benign prostatic hyperplasia without lower urinary tract symptoms Category: Medical (2) Nocturia: Code(s): R35.1 - Nocturia Category: Medical (3) Slowing of urinary stream: Code(s): R39.198 - Other difficulties with micturition Category: Medical Plan Start tamsulosin 0.4 mg daily, renal ultrasound, follow-up to evaluate improvement urinary symptoms. Orders: Orders US renal BI Today N40.0 - Benign prostatic hyperplasia without lower urinary tract symptoms, R35.1 - Nocturia AMB Urinalysis Automated Today Z13.9 - Encounter for screening, unspecified AMB Post Void Residual by ultrasound Today N40.0 - Benign prostatic hyperplasia without lower urinary tract symptoms Medications: New tamsulosin (Flomax) 0.4 mg PO BEDTIME 90 caps 1RF Patient Instructions: The patient had an opportunity to ask questions regarding treatment plan. The patient expressed understanding and agreement with the above treatment plan. The patient is aware they should contact our office by phone for worsening of their current condition or the appearance of new symptoms. Compliance is encouraged with any medications and followup testing that is ordered. It is a privilege to be allowed the opportunity to participate in the urologic care of your patient. If you have any questions or concerns regarding treatment for the above conditions please do not hesitate to contact me. The office telephone contact is [phone]. This note is constructed in part using voice recognition software. While every effort has been made to ensure accuracy small wind energy installer errors may have been included. Yours sincerely, Jason Ramos MD Coding Level of Care Code New Pt Level 4 (07929) Diagnoses BPH (benign prostatic hyperplasia) N40.0 Nocturia R35.1 Slowing of urinary stream R39.198 CPT Codes Post Residual Void - PVR CPT Code: 09337-Iwgn Void Residual by ultrasound ([id number]) AUA Symptom Score AUA Incomplete emptying - It does not feel like I empty my bladder all the way.: 4 - More than half the time Frequency - I have to go again less than two hours after I finish urinating.: 4 - More than half the time Intermittency - I stop and start again several times when I urinate.: 4 - More than half the time Urgency - It is hard to wait when I have to urinate.: 2 - Less than half the time Weak stream - I have a weak urinary stream.: 1 - Less than 1 time in 5 Straining - I have to push or strain to begin urination.: 3 - About half the time Nocturia - I get up to urinate after I go to bed until the time I get up in the morning.: 4 times AUA Symptom Score: 22 Quality of life due to urinary symptoms: If you were to spend the rest of your life with your urinary condition the way it is now, how would you feel about that?: Mostly dissatisfied Source: Vladimir BRAGG, Milka STARK Jr, O'Araceli MP, et al, and the Measurement Committee of the [employer]. The [employer] symptom index for benign prostatic hyperplasia. J Urol. 1992; 148: 4449-1492. Copyright 1992 [employer]
== END 2024-03-19 09:53 | disposition home or self-care (01) ==
PROVIDERS: PCP Internal Medicine; Visit Provider Urology
DX: N40.0 Benign prostatic hyperplasia without lower urinary tract symptoms (principal); R35.1 Nocturia; R39.198 Other difficulties with micturition
CPT/HCPCS: 99204

== ENCOUNTER → 2024-03-19 08:43 | Outpatient (BNVA) | payer OTHER, SELFPAY | PROVIDERS: PCP Internal Medicine; Visit Provider Urology | DX: N40.0 Benign prostatic hyperplasia without lower urinary tract symptoms (principal); R35.1 Nocturia; R39.198 Other difficulties with micturition | CPT/HCPCS: 51798 ==

== ENCOUNTER 2024-05-14 14:01 | Outpatient (AMB) | payer OTHER, SELFPAY ==
--- OUTSIDE RECORDS SUMMARY | 2024-05-14 14:03 | XMS_ITS | Data Portability ---
Author Organization [facility], [place] Medicaid MRI Address [address] [place] [address] Care Team Providers Care Judicial Registrar Name Role Phone HUGO VALADEZ Primary Care Provider [phone] HUGO VALADEZ Referring Provider RICKY HINOJOSA Spinal Orthopedic Surgeon Rachel summers Assessment Encounter Date Assessment Date Assessment LastModified by Organization Details LastModified Time 09/06/2016 09/06/2016 Impression:46-ye ar -old male with 2 month's worth of excruciating lower back pain that radiates down his left lower extremity in the L4-L5 distribution. He describes a constant sharp pain in his lower back with a pins and needles sensation in his left lower extremity. At this point he has tried and failed numerous conservative treatments including [id number]-[id number] anti-inflammatorie s, prescription narcotics, as well as activity modifications with no relief. The pain is getting increasingly more severe and he now has weakness of his left lower extremity. on physical exam he has 4 out of 5 strength of his left hamstring and a positive straight leg raise in the left. Plan: 1.lumbar radiculopathy: I would like to get an MRI of the lumbar spine to evaluate for any nerve root impingement, neural foraminal stenosis, herniated nucleus pulposis, or any other cause of his persistent pain both in the lumbar cervical spine in the radicular pattern. I will see him back for review of the MRI 2. I have given a prescription for Medrol Dosepak to help decrease the inflammation 50% of the 45min visit was spent on coordination and management of care Thanks very much for allowing me to participate in the care of this patient. If I can be of any service to you or your patients regarding the spine: Cervical thoracic or lumbar please don't hesitate to contact me Sincerely, Kushal Sanchez PA-C Orthopedic Spine Surgery [facility] [email or web address] Not available 09/06/2016 14:17:28 10/11/2016 10/11/2016 MRI:[facility]. MRI of his lumbar spine demonstrates L3-4: Mild disc bulge with facet arthropathy produces mild to moderate bilateral neural foraminal narrowing. L4-5: Diffuse disc bulge produces mild bilateral neural foraminal narrowing. L5-S1: Disc bulge with mild left neuralforaminal narrowing Impression/Plan: 1.lumbar radiculopathy: I spoke at length with Mr. Chavarria review the images of his MRI with him. He has neural foraminal stenosis at L3-4 and L4-5 which is mostly causing his radicular symptoms. I recommended an L4-[address] Gallegos or Dr. Sy. he will be seen in the office after his injection to see how he is doing. 50% of the 45min visit was spent counseling the patient in management of care Thanks very much for allowing me to participate in the care of this patient. If I can be of any service to you or your patients regarding the spine: Cervical thoracic or lumbar please don't hesitate to contact me Sincerely, Kushal Sanchez PA-C Orthopedic Spine Surgery [facility] [email or web address] Not available 10/11/2016 15:05:57 11/15/2016 11/15/2016 Impression/Plan: 1.Mr. Chavarria is doing very well. I advised to continue home-based exercise program. At this point we'll follow back up as needed 50% of the 25min visit was spent on coordination and management of care Thanks very much for allowing me to participate in the care of this patient. If I can be of any service to you or your patients regarding the spine: Cervical thoracic or lumbar please don't hesitate to contact me Sincerely, Kushal Sanchez PA-C Orthopedic Spine Surgery [facility] [email or web address] Not available 11/15/2016 15:55:05 Plan of Treatment Reminders Order Date Submit Date Provider Last Modified By Organization Details Last Modified Time Details Appointments None recorded. Lab None recorded. Referral None recorded. Procedures None recorded. Surgeries None recorded. Imaging XR, lumbosacral spine, 4 or more view 2016 017 [email or web address] In-Office Order, Internal Use Only DO Not Attach Compendium DO Not Attach Compendium, Do Not Delete/merge, 45045 7 07:57:59 Medication Orders None recorded. Patient TargetsNo targets recorded. Patient InstructionsNo instructions recorded. Reason for Referral None Reported. Results Created Date Observation Date Name Description Value Unit Range Abnormal Flag Note LastModifiedBy Organization Detail LastModifiedTime 09/22/19 17 09/21/2016 MRI, lumba r spine , w/o contr ast No observ ation record ed. [email or web address] Not Available 2016 08:54:58 Result Notes None recorded. Problems No Known Problems Procedures Surgical History None recorded. Imaging Results Imaging Date Name Status LastModified by Organiz ation Details LastModified Time 09/21/2016 MRI, lumbar spine, w/o contrast completed [email or web address] Information not available 09/25/2016 08:54:58 Procedure Notes None recorded. Medical Equipment None Reported. Allergies No known drug allergies Medications Name Sig Start Date Stop Date Status Note LastModified by Organization Details LastModified Time carisoprodol 350 mg tablet active Not Available Not Available Not Available ibuprofen 800 mg tablet active Not Available Not Available Not Available ranitidine 300 mg tablet active Not Available Not Available Not Available hydrocodone 5 mg-acetaminophen 325 mg tablet active Not Available Not Availabl e Not Available prednisone 20 mg tablet active Not Available Not Available Not Available oxycodone-acetamino phen 5 mg-325 mg tablet active Not Available Not Available Not Available amlodipine 10 mg tablet TK 1 T PO QD active Not Available Not Available No t Available ibuprofen 600 mg tablet active Not Available Not Available Not Available methylprednisolone 4 mg tablets in a dose pack USE UTD active Not Available Not Available No t Available cyclobenzaprine 5 mg tablet active Not Available Not Available No t Available Vitals Date Recorded Body height Body weight Body mass index (BMI) Provider Name and Address Organization Details Last Updated DateTime 09/06/2016 170.18 cm 29608.55 g 29.8 kg/m2 Alisha Huston [place] - [facility] 09/06/2016 13:29:11 Date Recorded Pain severity - 0-10 verbal numeric rating [Score] - Reported Provider Name and Address Organization Details Last Updated DateTime 09/06/2016 9 Not Available [employer] 8 05:51:49 Date Recorded Body height Body mass index (BMI) Body weight Provider Name and Address Organization Details Last Updated DateTime 10/11/2016 170.18 cm 29.8 kg/m2 77356.55 g [facility] 10/11/2016 14:52:39 Date Recorded Pain severity - 0-10 verbal numeric rating [Score] - Reported Provider Name and Address Organization Details Last Updated DateTime 10/11/2016 7 Not Available [facility] 8 05:51:54 Date Recorded Body height Body mass index (BMI) Body weight Provider Name and Address Organization Details Last Updated DateTime 11/15/2016 170.18 cm 29.8 kg/m2 24505.55 g [facility] 11/15/2016 15:26:14 Date Recorded Pain severity - 0-10 verbal numeric rating [Score] - Reported Provider Name and Address Organization Details Last Updated DateTime 11/15/2016 0 Not Available [facility] 8 05:52:02 Social History Question Answer Notes LastModified by Organizat ion Details LastModified Time Tobacco Smoking Status Current Every Day Smoker Alisha ibarra [facility] 09/06/2016 13:29:54 What Is Your Level Of Alcohol Consumption? Occasional [email or web address] Information not available 09/06/2016 Auto Related Injury? No [email or web address] Information not available 09/06/2016 Are You Currently Employed? Yes [email or web address] Information not available 09/06/2016 What Was The Date Of Your Most Recent Tobacco Screening? 11/15/2016 Information not available 10/31/2018 How Much Tobacco Do You Smoke? 0.5 PPD [email or web address] Information not available 09/06/2016 Work Related Injury? No [email or web address] Information not available 09/06/2016 Sex: Unknown Functional Status None recorded. Mental Status None recorded. Family History Relationship Description Onset Age of this Age Resolved Age Notes LastModified by Organization Details LastModified Time Mother Hypertensive disorder [email or web address] Not available 2016 13:29:43 Medical History Condition Response Coronary Artery Disease N Hereditary Defects N Gout N Tremors/Seizures/Dizziness/Epilepsy N Excessive Thirst/Fatigue N Lung Disease N Blood Clots N Fever, Chills, Headaches N Pacemaker N Heart Disease/Problems N Breathing Problems N Heart Attack ([place]) N Sexually Transmitted Diseases N Bleeding Disorder/Tendencies or Anemia N Stomach Ulcers N Diabetes N Skin Problems/Rash/Boils N Depression/Psychiatric Problems N Arthritis N Tuberculosis N Cancer N Stroke N Eye Problems N Leg or Foot Ulcers N HIV/AIDS N Chest Pain/Heart Attack/Arrhythmia N Stomach Problems/Reflux/GERD N Urinary Pain/Frequency/Retention N Hepatitis N Rheumatoid Arthritis N Hypertension/High Blood Pressure N Osteoporosis N Kidney Disease N Past Encounters Encounter ID Performer Location Encounter Start Date Encounter Closed Date Diagnosis/Indication Diagnosis SNOMED-CT Code Diagnosis ICD10 Code Diagnosis Note [id number] [place] Contre[facility] [address] [phone] 09/06/2016 13:08:59 09/06/2016 14:45:14 Low back pain 644750740 M54.5 Lumbar radiculopathy 128 873956 M54.16 Degenerati on of lumbar intervertebral disc 79449138 M51.36 [id number] [place] Contreras [facility] ot a [address] [address] 10/11/2016 14:40:59 10/11/2016 15:08:13 Lumbar radiculopathy 970981542 M54.16 Degenerati on of lumbar intervertebral disc 84717106 M51.36 [id number] [place] Contreras [facility] - [address] [address] 11/15/2016 15:14:02 11/15/2016 16:07:39 Lumbar radiculopathy 010412743 M54.16 Health Concerns Section Related Observation LastModified by Organization Detai ls LastModified Time None Recorded Concern Status LastModified by Organization Details LastModified Time None Recorded Advance Directives Directive None Recorded Payers Encounter Date Sequence Insurance Name Policy Number Policy Roberson Covered Member ID Roberson Member ID Guarantor Name 09/06/2016 1 [facility] [id number] Chase Chavarria [id number] 1 Chase Chavarria 10/11/2016 1 [facility] [id number] Chase Chavarria [id number] 1 Chase Chavarria 11/15/2016 1 [facility] [id number] Chase Chavarria [id number] Chase Chavarria Notes Date Note Type Note Provider Name and Address Organization Details Recorded Time 09/06/2016 text/html Chase is a pleas ant 46-year-old male who presents after a week chief complaint of low back pain that radiates down his left lower extremity for the past 2 months. He describes a constant dull ache in his lower back with a sharp shooting pain down his left leg that is getting progressively worse. Over the past one month he is presented to the emergency department on 2 different occasions due to increasing pain. He also notes some weakness in his left lower extremity after and during long distances. He is having difficulty sleeping and performing his job duties due to the ongoing pain. He denies any acute trauma to the area or loss of bowel or bladder function [place] Contreras [address] [place] [address], [phone], [facility] 09/06/2016 14:17:50 10/11/2016 text/html Mr Chavarria present s to the office today for follow-up of MRI results of his lumbar spine. He continues to complain of significant back pain that radiates into his lower extremities. GE[place]IA Contreras [address] [place] [address], [phone], [facility] 10/11/2016 15:06:24 11/15/2016 text/html Mr. Chavarria presen ts to the office today for follow-up he recently had an L4-[address] Gallegos. At presentation today he is doing extremely well he denies any back or leg pain. He is very happy. GEOR[place]IA Contreras [address] [place] [address], [phone], [facility] 11/15/2016 15:55:26
--- NOTE | 2024-05-14 14:04 | MHC.PC.OV ---
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 In review of the notes, patient was seen by Urology 03/19/2024 started on tamsulosin ordered for renal ultrasound and follow up. Patient also had recent echocardiogram and stress test 03/16/2024 which were normal. Patient tells us for the last month he has been having daily bilateral [id number] numbness and tingling in the legs. The numbness and tingling we will begin in the morning resolves throughout the day while he is at work and returned back in the afternoon. Denies any knee pain or pain in the feet with the numbness but feels unsteady when it comes on acute is off balance and we will fall. He saw Dr. Ramsey for this concern and a back x-ray was ordered which was negative. He has no history of diabetes. [facility] Medical History Low back pain Colon cancer screening Hypercholesterolemia Osteoarthritis of lumbar spine Tobacco use disorder Obesity (BMI 30-39.9) GERD without esophagitis Essential (primary) hypertension History of pilonidal cyst Surgical History History of incision and drainage History of appendectomy Family History Mother Myocardial infarction CVD (cardiovascular disease) Father Stomach cancer Son In good health Daughter In good health Daughter In good health Daughter In good health Social History Housing: Apartment Alcohol intake: current Alcohol intake frequency: holidays/special occasions only Comment: 2x a month5 -6 drinks Patient Tobacco Use Status: Current everyday Tobacco user Tobacco use type: Cigarette Cigarettes Per Day: 4 Years Smoked: 40- 6 cigaretttes a day e-Cigarette/Vaping Use: Never Used Second Hand Smoke Exposure: No service: No Current occupational status: employed 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 1. Little interest or pleasure in doing things: not at all 2. Feeling down, depressed, or hopeless: not at all 3. Trouble falling or staying asleep, or sleeping too much: not at all 4. Feeling tired or having little energy: not at all 5. Poor appetite or overeating: not at all 6. Feeling bad about yourself - or that you are a failure or have let yourself or your family down: not at all 7. Trouble concentrating on things, such as reading the newspaper or watching television: not at all 8. Moving or speaking so slowly that other people could have noticed. Or the opposite - being so fidgety or restless that you have been moving around a lot more than usual: not at all 9. Thoughts that you would be better off or of hurting yourself in some way: not at all Total score: 0 Depression Screening Interpretation: Negative Depression Screening Done: Yes Source: Developed by Drs. Roger Nava, Gregoria Foster, Broderick Araujo and colleagues, with an educational mayi from [facility]. Thrive Questionnaire Date Thrive assessed: 05/14/24 I am a: Patient What is your living situation today?: I have a steady place to live Within the past 12 months, did the food you bought not last and you didn't have the money to get more?: Never true Within the past 12 months, did you worry whether your food would run out before you got money to buy more?: Never true Do you have trouble paying for medicines?: No Do you have trouble getting transportation to medical appointments?: No Do you have trouble paying your heating and electricity bill?: No Do you have trouble taking care of your child, family member or friend?: No Do you have trouble with day-to-day activities such as bathing, preparing meals, shopping, managing finances, etc.?: No Are you currently unemployed and looking for a job?: No Are you interested in more education?: No Please select the resources that you would like help with: None Currently or been in a relationship where the following occur: No concerns reported THRIVE Score: 0 AUDIT C Alcohol Use Questionnaire (AUDIT-C) 1. How often do you have a drink containing alcohol?: Monthly or less 2. How many drinks containing alcohol do you have on a typical day when you are drinking?: 1 or 2 3. How often do you have six or more drinks on one occasion?: Never Total Score: 1 SUSANNAH-7 AMB Questionnaire SUSANNAH-7 Date SUSANNAH - 7 assessed: 05/14/24 Feeling nervous, anxious, or on edge: 0 = Not at all Not being able to stop or control worryin = Not at all Worrying too much about different things: 0 = Not at all Trouble relaxin = Not at all Being so restless that it is hard to sit still: 0 = Not at all Becoming easily annoyed or irritable: 0 = Not at all Feeling afraid as if something awful might happen: 0 = Not at all Total SUSANNAH-7 score (0-4 normal; 5-9 mild; 10-14 moderate; 15-21 severe): 0 Source: Developed by Drs. Roger Nava, Gregoria Foster, Broderick Araujo and colleagues, with an educational mayi from [facility] [employer]. Review of Systems Const Denies body aches, Denies chills, Denies fever(s), Denies headache(s) and Denies poor appetite Eyes Reports no additional complaints ENT Denies dysphagia, Denies dizziness, Denies headache(s) and Denies odynophagia Card Denies chest pain, Denies syncope, Denies edema, Denies irregular heart rhythm, Denies lightheadedness and Denies dyspnea Resp Denies cough and Denies dyspnea GI Denies abdominal pain, Denies constipation, Denies dysphagia, Denies diarrhea, Denies nausea, Denies odynophagia and Denies vomiting Reports no additional complaints Musc Reports no additional complaints and Denies abnormal gait Skin/Breast Reports system reviewed and no additional complaints, except as documented Neuro Denies abnormal gait, Denies dizziness, Denies syncope and Denies headache(s) Psych Reports no additional complaints Physical exam (Primary Care) Vital Signs: Last Vital Signs Temp 97.6 F 05/14/24 14:06 Pulse 104 H 05/14/24 14:06 BP 146/72 H 05/14/24 14:06 Pulse Ox 97 05/14/24 14:06 Oxygen Delivery Method Room Air 05/14/24 14:06 BMI result Body Mass Index 34.3 Tobacco/Smoking Status: Tobacco use Status Tobacco use date assessed 05/14/24 05/14/24 14:11 Patient Tobacco Use Status Current everyday Tobacco 05/14/24 14:11 Tobacco use type Cigarette 05/14/24 14:11 e-Cigarette/Vaping Use Never Used 05/14/24 14:11 PHQ-9: PHQ-9 Score PHQ-9: Total score 0 05/14/24 14:56 Depression Screening Interpretation: Negative Thrive Assessment: Date of Thrive Assessment Date Thrive assessed 05/14/24 05/14/24 14:11 Currently or been in a relationship where the following occur: No concerns reported Const General: cooperative, healthy appearing, comfortable and no acute distress Orientation/consciousness: patient oriented x3 HENMT Head: Yes normocephalic Ears: hearing grossly normal bilaterally General nose exam: Normal external nose present Eyes General: appearance normal, both eyes and all related structures Conjunctivae: conjunctivae normal Neck Neck: Yes full ROM and Yes no lymphadenopathy Resp Effort & Inspection: normal respiratory effort Auscultation: clear to auscultation bilaterally, no crackles, no rales, no rhonchi and no wheezes Cardio Rate: regular rate Rhythm: regular rhythm Skin General skin exam: no rashes or lesions noted Neuro General: patient oriented x3 Gait exam (Neuro): Normal gait present Extrem Other: Intact strength, sensation, pulses in bilateral lower extremities General: Yes normal to inspection, Yes full ROM and No edema Psych Affect: normal affect Attitude: cooperative Insight: Good insight present (Psych) Judgement: Good judgement present (Psych) Coding Level of Care Code Est Pt Level 4 (20754) Diagnoses BPH (benign prostatic hyperplasia) N40.0 Essential (primary) hypertension I10 Obesity (BMI 30-39.9) E66.9 Lower extremity numbness R20.0 Assessment & Plan Assessment & Plan (1) BPH (benign prostatic hyperplasia): Comment: Mild October 2023 Code(s): N40.0 - Benign prostatic hyperplasia without lower urinary tract symptoms Category: Medical Plan: Patient is seen by Urology started tamsulosin advised to have renal ultrasound and follow up in 4 weeks (2) Essential (primary) hypertension: Code(s): I10 - Essential (primary) hypertension Category: Medical Plan: Continue on current blood pressure medication. Avoid salt intake and encourage healthy diet and regular exercise. Blood pressure mildly elevated today advised to take blood pressures at home and reach out to the office if persistently over 140/90 (3) Obesity (BMI 30-39.9): Code(s): E66.9 - Obesity, unspecified Category: Medical Plan: Healthy diet and regular exercise is encouraged. (4) Lower extremity numbness: Code(s): R20.0 - Anesthesia of skin Category: Medical Plan: Patient having persistent numbness in bilateral lower extremities below the knee. The pain is intermittent throughout the day but is every day. Concern for possible plantar fasciitis recommending stretches and patient was provided with stretches to try at home. Also ordered for lower extremity EMG for further evaluation. Plan This note was constructed using voice recognition software. 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 Total time spent caring for the patient today was 20 minutes. This includes time spent before the visit reviewing the chart, time spent during the visit, and time spent after the visit and documentation. Orders: Orders NE electromyogram (EMG) Today R20.0 - Anesthesia of skin
--- OUTSIDE RECORDS SUMMARY | 2024-05-14 14:04 | XMS_ITS | Data Portability ---
Author Organization [place] - [facility], [facility] Address [address] [place] [address] Assessment No assessment recorded. Plan of Treatment Reminders Order Date Submit Date Provider Last Modified By Organization Details Last Modified Time Details Appointments None recorded. Lab None recorded. Referral ophthalmol ogist referral - htn and blurry vision in the AM 2015 [facility], [address] [place], [address], 6 17:46:50 general surgeon referral 2015 016 [email or web address] Not available 6 19:44:45 electromyo gram referral - EMG of upper and lower extremitie s; patient with c/o tingling on arms, hands, legs and feet 2015 016 ATHENAFAX Not available 6 15:18:25 orthopedic referral 2016 017 [email or web address] Orthopaedics [facility], [address] [place] [address], [address], 7 15:50:53 Procedures None recorded. Surgeries None recorded. Imaging None recorded. Medication Orders Proctosol HC 2.5 % rectal cream with applicator 2014 015 [email or web address] [facility] #[id number], [address] [place], [place], [id number], 7 13:24:11 Daily Fiber (psyllium- sucrose) 3.4 gram/12 gram oral powder 2014 015 [email or web address] [facility] #[id number], [address], [place], [id number], 5 11:26:53 amlodipine 10 mg tablet 2014 015 npadua [facility] #[id number], [address], [place], [id number], 5 11:26:53 Zantac 300 mg tablet 2015 016 npadua [facility] #[id number], [address], [place], [id number], 6 08:15:05 ibuprofen 800 mg tablet 2016 017 [id number], [address], [place], [id number], 7 13:32:04 Patient TargetsNo targets recorded. Patient Instructions Encounter Date Encounter Id Patient Instructions Last Modified By Organization Details Last Modified Time 03/08/2015 [id number] estre? ? ?imiento: instrucciones de cuidado - [constipation: care instructions] [email or web address] Not available 03/13/2015 17:41:34 06/07/2015 [id number] aprenda sobre la presi? ? ?n arterial esvin - [learning about high blood pressure] npadua Not available 06/07/2015 19:21:13 presi? ? ?n arterial esvin: instrucciones de cuidado - [high blood pressure: care instructions] npadua Not available 06/07/2015 19:21:13 09/13/2015 [id number] enfermedad de reflujo gastroesof? ? ?gico (GERD): instrucciones de cuidado - [gastroesophageal reflux disease (GERD): care instructions] npadua Not available 09/14/2015 08:15:05 aprenda sobre la presi? ? ?n arterial esvin - [learning about high blood pressure] npadua Not available 09/14/2015 08:15:04 presi? ? 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 Referral for Benign essential hypertension htn and blurry vision in the AM htn and blurry vision in the AM Referring Physician: Mally Flores, Internal Medicine, Encounter Date: 06/07/2015 General Surgeon Referral for Mass of neck Referring Physician: Mally Flores, Internal Medicine, Encounter Date: 09/13/2015 Electromyogram Referral for Paresthesia of upper limb EMG of upper and lower extremities; patient with c/o tingling on arms, hands, legs and feet Referring Physician: Mally Flores, Internal Medicine, Encounter Date: 09/13/2015 Orthopedic Referral for Lumb ar radiculopathy Referring Physician: Yael Calero, Family Medicine, Encounter Date: 08/20/2016 Results Created Date Observation Date Name Description Value Unit Range Abnormal Flag Note LastModifiedBy Organization Detail LastModifiedTime 09/16/19 16 09/17/2015 CMP, serum or plasm a glucose 87 mg/dL 65-99 normal Fasti ng refer ence inter ann marie Not Available [facility] [address], [address], 09/17/2015 03:11:38 09/16/19 16 09/17/2015 CMP, serum or plasm a urea nitrogen (BUN) 18 mg/dL 7-25 normal Not Available [facility] [address], [address], 09/17/2015 03:11:38 09/16/19 16 09/17/2015 CMP, serum or plasm a creatinine 0.90 mg/dL 0.60-1 .35 normal Not Available [facility] [place] [facility] [address], [address], 09/17/2015 03:11:38 09/16/19 16 09/17/2015 CMP, serum or plasm a eGFR non-afr. emirati 104 mL/mi n/1.7 3m2 > or = 60 normal Not Available [facility] [place] [facility] [address], [address], 09/17/2015 03:11:38 09/16/19 16 09/17/2015 CMP, serum or plasm a eGFR 120 mL/mi n/1.7 3m2 > or = 60 normal Not Available [facility] [place] [facility] [address], [address], 09/17/2015 03:11:38 09/16/19 16 09/17/2015 CMP, serum or plasm a BUN/creatini ne ratio NOT APPLIC ABLE (calc ) 6-22 Not Available [facility] [address], [place], [address], 09/17/2015 03:11:38 09/16/19 16 09/17/2015 CMP, serum or plasm a sodium 140 mmol/ L 135-14 6 normal Not Available [facility] [address], [place], [address], 09/17/2015 03:11:38 09/16/19 16 09/17/2015 CMP, serum or plasm a potassium 4.2 mmol/ L 3.5-5. 3 normal Not Available [facility] [address], [address], 09/17/2015 03:11:38 09/16/19 16 09/17/2015 CMP, serum or plasm a chloride 108 mmol/ L 98-110 normal Not Available [facility] [address], [place], [address], 09/17/2015 03:11:38 09/16/19 16 09/17/2015 CMP, serum or plasm a carbon dioxide 22 mmol/ L 19-30 normal Not Available [facility] [address] [place], [place], [address], 09/17/2015 03:11:38 09/16/19 16 09/17/2015 CMP, serum or plasm a calcium 9.1 mg/dL 8.6-10 .3 normal Not Available [facility] [place] [facility] [address] [place], [place], [address], 09/17/2015 03:11:38 09/16/19 16 09/17/2015 CMP, serum or plasm a protein, total 7.3 g/dL 6.1-8. 1 normal Not Available [facility] [address] [place], [place], [address], 09/17/2015 03:11:38 09/16/19 16 09/17/2015 CMP, serum or plasm a albumin 4.5 g/dL 3.6-5. 1 normal Not Available [facility] [place] [facility] [address] [place], [place], [address], 09/17/2015 03:11:38 09/16/19 16 09/17/2015 CMP, serum or plasm a globulin 2.8 g/dL_ (calc ) 1.9-3. 7 normal Not Available [facility] [address], [place], [address], 09/17/2015 03:11:38 09/16/19 16 09/17/2015 CMP, serum or plasm a albumin/glob ulin ratio 1.6 (calc ) 1.0-2. 5 normal Not Available [facility] [place] [facility] [address], [place], [address], 09/17/2015 03:11:38 09/16/19 16 09/17/2015 CMP, serum or plasm a bilirubin, total 0.3 mg/dL 0.2-1. 2 normal Not Available [facility] [place] [facility] [address] [place], [address], 09/17/2015 03:11:38 09/16/19 16 09/17/2015 CMP, serum or plasm a alkaline phosphatase 95 U/L 40-115 normal Not Available [facility] [place] [facility] [address] [place], [place], [address], 09/17/2015 03:11:38 09/16/19 16 09/17/2015 CMP, serum or plasm a AST 16 U/L 10-40 normal Not Available [facility] [address] [place], [place], [address], 09/17/2015 03:11:38 09/16/19 16 09/17/2015 CMP, serum or plasm a ALT 26 U/L 9-46 normal Not Available [facility] [address] [place], [place], [address], 09/17/2015 03:11:38 09/16/19 16 09/17/2015 folat e, serum folate, serum 19.3 NG/mL normal Refer ence Range Low: <3.4 Borde rline : 3.4-5 .4 Shante l: >5.4 Not Available [facility] [address] [place], [place], [address], 09/17/2015 03:11:38 09/16/19 16 09/17/2015 T4, free, serum T4, free 1.1 NG/dL 0.8-1. 8 normal Not Available [facility] [address] [place], [place], [address], 09/17/2015 03:11:39 09/16/19 16 09/17/2015 TSH, serum or plasm a TSH 1.22 mIU/L 0.40-4 .50 normal Not Available [facility] [address] [place], [place], [address], 09/17/2015 03:11:39 09/16/19 16 09/17/2015 vitam in B12, serum vitamin B12 432 pg/mL 200-11 00 normal Not Available [facility] [place] [facility] [address] [place], [place], [address], 09/17/2015 03:11:39 06/23/19 16 06/23/2015 ultra sound , neck No observ ation record ed. [email or web address] [facility] (Radiology) [address] [place], [address], 09/14/2015 08:04:56 10/06/19 16 10/06/2015 echoc ardio gram No observ ation record ed. [email or web address] [facility] [address] [address], [place], [address], 10/11/2015 14:11:43 Result Notes None recorded. Problems Name Problem SNOMED Code Status Onset Date Resolution Date Notes Provider Name and Address Organization Details Recorded Time Tobacco dependence syndrome 75054017 Active 1982 smokes 1 pack every 2 days. Mally ibarra [facility] 6 17:46:36 Elevated blood-pres sure reading without diagnosis of hypertensi on 539778407 Active Mally ibarra [facility] 6 17:46:36 Headache 42274815 Completed 08/20/2016 yael ibarra [facility] 7 13:36:32 Benign essential hypertensi on 6255995 Active Mally ibarra [facility] 6 08:15:04 Mixed hyperlipid emia 828963813 Active Mally biarra [facility] 6 17:46:36 Constipati on 35543934 Completed 08/20/2016 yael ibarra [facility] 7 13:36:28 Internal hemorrhoid s 97548469 Active Mally ibarra [facility] 6 17:46:36 Mass of neck 519129607 Active [facility] 6 08:15:04 Paresthesi a of upper limb 40989556 Active [facility] 6 08:15:04 Paresthesi a of lower extremity [id number] [facility] 6 08:15:04 Gastroesop hageal reflux disease [id number] [facility] 6 08:15:04 Problem Notes None recorded. Procedures Surgical History Date Name Laterality Status Provider Name and Address Organization Details Recorded Time Appendectomy completed Charo Felton [facility] 12/14/2014 14:24:01 Imaging Results Imaging Date Name Status LastModified by Organization Details LastModified Time 06/23/2015 ultrasound, neck completed [email or web address] [facility] (Radiology) [address] [place], [address], 09/14/2015 08:04:56 10/06/2015 echocardiogram completed [email or web address] [facility] [address], [address], 10/11/2015 14:11:43 Procedure Notes None recorded. Medical Equipment None Reported. Allergies No known drug allergies Medications Name Sig Start Date Stop Date Status Note LastModified by Organization Details LastModified Time Proctosol HC 2.5 % rectal cream with applicator Insert 1 applicati on twice a day by rectal route. 08/20 completed Not Available Not Available Not Available ibuprofen 800 mg tablet Take 1 tablet 3 times a day by oral route with meals for 10 days. 2016 active Not Available Not Available Not Avai lable Zantac 300 mg tablet Take 1 tablet every day by oral route for 30 days. 2016 active Not Available Not Available Not Avai lable butalbital 50 mg-acetamin ophen 325 mg tablet Take 1 tablet every 6 hours by oral route as needed. 08/20 completed Not Available Not Available Not Available acetaminoph en 300 mg-codeine 30 mg tablet 01/14 completed Not Available Not Available Not Available amlodipine 5 mg tablet Take 1 tablet every day by oral route. 02/18 completed Not Available Not Available Not Available butalbital- acetaminoph en-caffeine 50 mg-325 mg-40 mg tablet 12/14 completed Not Available Not Available Not Available Proctozone- HC 2.5 % topical cream perineal applicator 08/20 completed Not Available Not Available Not Available amlodipine 10 mg tablet Take 1 tablet every day by oral route for 30 days. 2016 active Not Available Not Available Not Avai lable ibuprofen 600 mg tablet 12/14 completed Not Available Not Available Not Available Daily Fiber (psyllium-s ucrose) 3.4 gram/12 gram oral powder Take 3.4 g 3 times a day by oral route. 2014 active Not Available Not Available Not Avai lable Vitals Date Recorded Body height Heart rate Body weight Body mass index (BMI) Systolic blood pressure Diastolic blood pressure Provider Name and Address Organization Details Last Updated DateTime 5 167.64 cm 102 /min 64255.4 8001 g 27.9 kg/m2 144 mm[Hg] 90 mm[Hg] Charo Felton [facility] 5 16:02:19 Date Recorded Body weight Body height Body mass index (BMI) Heart rate Systolic blood pressure Diastolic blood pressure Provider Name and Address Organization Details Last Updated DateTime 5 34501.2 9527 g 167.64 cm 27.6 kg/m2 90 /min 135 mm[Hg] 86 mm[Hg] Charo Felton [facility] 5 16:40:59 Date Recorded Body weight Body mass index (BMI) Body height Heart rate Systolic blood pressure Diastolic blood pressure Provider Name and Address Organization Details Last Updated DateTime 6 66260.0 3423 g 28.9 kg/m2 167.64 cm 103 /min 130 mm[Hg] 80 mm[Hg] Charo Felton [facility] 6 17:40:33 Date Recorded Heart rate Body weight Body height Body mass index (BMI) Systolic blood pressure Diastolic blood pressure Provider Name and Address Organization Details Last Updated DateTime 6 101 /min 18557.5 503 g 167.64 cm 30.7 kg/m2 143 mm[Hg] 82 mm[Hg] Charo Felton [facility] 6 17:36:23 Date Recorded Systolic blood pressure Diastolic blood pressure Systolic blood pressure Diastolic blood pressure Provider Name and Address Organization Details Last Updated DateTime 09/13/2015 130 mm[Hg] 89 mm[Hg] 130 mm[Hg] 88 mm[Hg] Mally Flores [facility] 6 17:56:44 Date Recorded Body height Body weight Body mass index (BMI) Body temperature Oxygen saturation Oxygen saturation in Arterial blood by Pulse oximetry Systolic blood pressure Diastolic blood pressure Provider Name and Address Organization Details Last Updated DateTime 7 167.64 cm 11924.3 7 g 30.3 kg/m2 99.2 [degF] 99 % 99 % 150 mm[Hg] 97 mm[Hg] Charo Felton [facility] 7 13:06:20 Social History Question Answer Notes LastModified by Organizat ion Details LastModified Time Tobacco Smoking Status Current Every Day Smoker Not Available [facility] 02/09/2020 03:13:59 Do You Have An Advance Directive? No [id number] Information not available 02/09/2020 What Is Your Level Of Alcohol Consumption? Occasional [id number] Information not available 02/09/2020 What Is Your Level Of Caffeine Consumption? Moderate [id number] Information not available 02/09/2020 What Type Of Diet Are You Following? 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 No [id number] Information not available 02/09/2020 Hard Of Hearing Or Deaf In One Or Both Ears? No [email or web address] Information not available 12/14/2014 Legally Blind In One Or Both Eyes? No [email or web address] Information not available 12/14/2014 Marital Status Single [email or web address] Informatio n not available 12/14/2014 Performs Monthly Self-breast Exam? No [email or web address] Information not available 12/14/2014 Seat Belts Used Routinely Yes Information not available 12/14/2014 Smoke Alarm In Home Yes [email or web address] Information not available 12/14/2014 At What Age Did You Start Smoking Tobacco? 13 [id number] Information not available 02/09/2020 How Much Tobacco Do You Smoke? 0.5 PPD [id number] Information not available 02/09/2020 Do You Use Sunscreen Routinely? No [id number] Information not available 02/09/2020 How Many Years Have You Smoked Tobacco? 31 [id number] Information not available 02/09/2020 Sex: Unknown Functional Status Question Answer Note LastModified by Organization D etails LastModified Time What is your exercise level? Moderate [id number] Information not available 02/09/2020 Mental Status None recorded. Family History Relationship Description Onset Age of this Age Resolved Age Notes LastModified by Organization Details LastModified Time Father Family history of malignant neoplasm 58 [email or web address] Not available 2015 17:46:39 Mother Heart disease 74 [email or web address] Not available 2015 17:46:39 Medical History Condition Response Coronary Artery Disease N Gout N Blood Diseases N Kidney Stones N Hyperthyroidism N Depression N COPD N Hypothyroidism N Developmental or Behavioral Disorders N Eczema, Hives or other skin conditions N Anxiety Disorder N Muscle, Joint, or Bone Problems N Vision or Eye Problems N Arthritis N Serious Illness or Injuries N Congenital Anomalies N Cancer N Stroke N Bladder or Kidney Problems N Hospital Admission other than N High Cholesterol N Liver Disease N Fibromyalgia N Kidney Disease N Heart Problems N Ear or Hearing Problems N ADD or ADHD N Thyroid Problems N Skin Problems N Anemia N Constipation N Diabetes N Bedwetting N Seizures/Epilepsy N Tuberculosis N Diverticulitis N Asthma N Allergies N Reflux/GERD N Heart Disease N Pulmonary Embolism N Hypertension N Chicken Pox N Osteoporosis N Immunizations Vaccine Type Date Status Note Provider Nam e and Address Organization Details Recorded Time Td (adult), 2 Lf tetanus toxoid, preservative free, adsorbed 5 completed Not Available [facility] 05/09/2019 02:10:23 Past Encounters Encounter ID Performer Location Encounter Start Date Encounter Closed Date Diagnosis/Indication Diagnosis SNOMED-CT Code Diagnosis ICD10 Code Diagnosis Note [id number] Nguyen [facility] [address] [place] [address],[address] [address] 12/14/2014 13:54:06 12/20/2014 14:17:02 Adult health examination 752449112 Overall benign exam; we discussed BMI, healthy diet; advised to stop smoking; increase exercise; avoid drugs, limit alcohol; discussed STD prevention . Refused Flu shot Labs: cbc, cmp, fasting lipids, TSH, HIV, urine GC, HEP C Elevated blood-pressure reading without diagnosis of hypertension 081093577 Recheck in 4 weeks Headache 53263622 Unrema rkab le neurologic al exam; normal head CT on 11/28/14 A s requested, referred to neurologis t Refilled Fioricet Administra tion of tetanus vaccine 052275178 Td today [id number] Mally Flores [address] [address] 01/14/2015 15:50:43 01/25/2015 14:26:13 Benign essential hypertension 8134413 I10 BP 154/101 We discussed labs Prescribed amlodipine 5mg; discussed possible side effects F/U in 4 weeks to recheck Mixed hyperlipidemia 267 495347 E78.2 Fasting lipids on 12/25/2014 LDL 145, total cholestero l 205; HDL 39 10 year risk factors for heart disease or stroke is 10.8%. On base of the patient's risk factors of smoking and HTN, the ACC/AHA guidelines recommend to start moderate to intense stain treatment. The patient prefers to wait until next visit to discuss. Advised to start lifestyle modificati on. [id number] [address] [address] 02/18/2015 15:53:38 02/25/2015 17:07:04 Benign essential hypertension 3275631 I10 BP 44/70 Increased amlodipine to 10mg daily Recheck in 3 months Constipation 10613038 K5 9.00 Diet and bowel regimen discussed with patient. Will try strick adherence to bowel regimes; f/u here in 4 weeks Consider referral to GI for colonoscop y if s/s do not improve. Internal hemorrhoids 905 30627 K64.8 Rectal cream prescribed [id number] Mally Flores [address] [address] 03/08/2015 15:37:55 03/10/2015 14:09:10 Constipation 17368601 K59.00 Diet and bowel regimen discussed with patient. Continue to maintain strick adherence to bowel regimen Consider referral to GI for colonoscop y if s/s do not improve. [id number] Mally [facility] [address] [place] [address],[address] [place] [address] 06/07/2015 17:33:06 06/08/2015 17:46:50 Benign essential hypertension 5207554 I10 Goal BP <140/90 BP this visit - 130/80 No complaints of hypo/hyper tension noted other than blurry vision in the AM. Eye exam unremarkab le. Will refer to opthomolog ist. Recheck in [address] for blurry vision Mass of neck 300556481 R 22.1 Pt noted to have a 9bmg9ys mass on the right posterior of neck. He reports it has been increasing in size over the past 9months. Pt reports pressure but no pain. Has full ROM and no other symptoms associated with mass. Sent for Ultrasound of neck Will refer to dermatolog y or surgeon depending on U/S results [id number] Mally [facility] [address] [place] [address] 09/13/2015 17:04:01 09/14/2015 16:32:14 Benign essential hypertension 8107345 I10 Goal BP <140/90 BP this visit - 138/80 No complaints of hypo/hyper tension noted other than blurry vision in the AM. Eye exam unremarkab le. Will refer to opthomolog ist. Recheck in [address] for blurry vision Mass of neck 479537099 R 22.1 Pt noted to have a 3ita1lk mass on the right posterior of neck. He reports it has been increasing in size over the past 9months. Pt reports pressure but no pain. Has full ROM and no other symptoms associated with mass. Ultrasound of neck, possible lipoma Will refer to surgeon Tanya hogan of upper limb 26074259 R20.2 Not a clear etiology, cervical and lumbar radiculopa thy, nutritiona l deficiency , endocrine or metabolic disease, nerve demyelinat ion, macrovascu lar, inflammato ry, infection are part of the differenti al. Labs to check for nutrition deficienci es, thyroid disease ordered . He declined HIV test. EMG ordered He will follow up labs and EMG Consider referral to neurologis cindy hogan of lower extremity 187196238 R20.2 Will f/u after labs and EMG Gastroesop hageal reflux disease 554188386 K21.9 Continue Zantac since it works for patient. [id number] yael silvestre [facility] [address] [place] [address] 08/20/2016 13:01:41 08/21/2016 13:50:02 Lumbar radiculopathy 874020156 M54.16 Unchanged. Reviewed EMR from [facility]. Dates: Pt visited center in 2 different occasions on 08/12/2016 and 08/16/2016 : Reviewed hx, plan, meds.Tried multiple meds w/no relief: Percocet 5mg/325 mg 1 tab po q6h #15 Prednisone 20 mg take 3 tablets for 3 days. Flexeril 5 mg po daily #15 [place] 5 mg/325 mg 2 tablets po q4h #25 Soma 350 MG po q6h daily #25Denies any injuries or trauma.No red flags.Will try ibuprofen. Reviewed side effects. Pt verbalized understand ing.Ordere d Xray for further evaluation .Placed referral to ortho for further evaluation .Reviewed warning s/sxs to RT LFDs or ED. Pt verbalized understand ing.No sensory loss or motor deficit. Benign ess ential hypertension 5464571 I10 Uncontroll ed.BP today: 150/97Goal <130/80.Cu rrently taking amlodipine 10 mg PO Daily. Denies any side effects.Wi ll f/u in 1 week.Last creatinine on 09/16/2015 : 0.90Last K+ on 09/16/2015 : 4.2 Obesity 965169885 E66.9 BMI: 30.3Recomm end weight loss, healthy diet.Last TSH on 09/16/2015 : 1.22 Health Concerns Section Related Observation LastModified by Organization Jose iglesias LastModified Time None Recorded Concern Status LastModified by Organization Details LastModified Time None Recorded Advance Directives Directive N: Payers Encounter Date Sequence Insurance Name Policy Number Policy Roberson Covered Member ID Roberson Member ID Guarantor Name 02/18/2015 1 [employer] - [employer] - OPEN ACCESS PLUS [id number] Chase Chavarria [id number] Chase Chavarria 03/08/2015 1 [employer] - [employer] - OPEN ACCESS PLUS [id number] Chase Chavarria [id number] Chase Chavarria 06/07/2015 1 [employer] - [employer] - OPEN ACCESS PLUS [id number] Chase Chavarria [id number] 1 Chase Chavarria 09/13/2015 1 [employer] - [employer] - OPEN ACCESS PLUS [id number] Chase Chavarria [id number] 1 Chase Chavarria 08/20/2016 1 [employer] - [employer]DEX[employer] - OPEN ACCESS PLUS [id number] Chase Chavarria [id number] 1 Chase Chavarria Notes Date Note Type Note Provider Name and Address Organization Details Recorded Time 5 text/html ConstipationReported bypatient.Quality:worseni ng Severity:moderate Duration:lifelong Onset/Timing:once a day Contextno recent opiates; no recent surgery; no stress; no anemia; normal toileting ability; no history of IBS; no history of Hirschsprung's; no family history of colon polyps or cancer; no history of colonoscopy; no history of Diverticulosis; no abnormal imaging;history of chronic idiopathic constipation Alleviating Factors:having bowel movement Associated Symptoms:no abdominal pain; no excess gas; no fever; no rash; no joint pain; no weight loss; no nausea; no vomiting; no heartburn; no blood in stool; no mucus in stool; no black or tarry stools; no weakness; no nutrient deficiency KRISHAN [facility] 03/13/2015 14:27:43 6 text/html Hypertension F/UReported bypatient.Associated Symptoms:no dizziness; no lightheadedness; no chest pain; no shortness of breath; no palpitations; no edema; no calf pain with exertion Lifestyle:only occasionally exercising; limiting/avoiding salt Medications:taking medications as directed KRISHAN [facility] 06/07/2015 19:22:46 6 text/html Hypertension F/UReported bypatient.Associated Symptoms:no dizziness; no lightheadedness; no chest pain; no shortness of breath; no palpitations; no edema; no calf pain with exertion Lifestyle:regular exercise; limiting/avoiding salt Medications:taking medications as directed; no side effects from medicationReflux/GERDRepo rted bypatient.SymptomsAsympto matic Severity:improving Context:non-smoker; no drug/alcohol abuse; no drug alcohol withdrawal;related to caffeine;related to spicy foods 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 S/S 1 1/2 month. He denies neck or low back pain. C/o growing lump on right side of the neck. Not painful KRISHAN Estrada [facility] 09/14/2015 08:15:56 7 text/html Back PainReported bypatient.Location:pain radiating to the legs Quality:sharp Severity:pain level 8/10;moderate (5-7) Duration:acute Onset/Timing:recurrent episode; 2weeks ago Context:used medications for back pain Aggravating Factors:movement/position ing;twisting;flexing back;extending back Associated Symptoms:no fever; no weak limbs; no tingling; no incontinence; no shortness of breath 46 y/o new patient to myself here for ED-follow up for low back pain.Location: [facility].Dates: Pt visited center in 2 occasions on 08/12/2016 and 08/16/2016. New meds: Percocet 5mg/325 mg 1 tab po q6h #15Prednisone 20 mg take 3 tablets for 3 days.Flexeril 5 mg po daily #15 - [place] 5 mg/325 mg 2 tablets po q4h #25- [place] 350 MG po q6h daily #25 Concerns: Low back pain for approx 2 weeks. Pain level 8/10. Pain is constant. Worse w/ Everything. Better w/ Nothing. Denies any recent trauma.Tried multiple pain meds w/ no relief. Pain radiates to Left lower extremity. Occasionally numbness in his L lower extremity. Pain started 2 weeks ago after he woke up from his bed. Denies any injuries at work. Denies any fever, chills, HAs, CP, SOB, abdominal pain, urinary incontinence, leg swelling, and calf pain. yael ibarra MA - [facility] 08/20/2016 13:42:45
[2024-05-14 14:06] VITALS: BP 146/72; PULSE 104; TEMP 36.4; O2SAT 97; BMI 34.3
== END 2024-05-14 14:43 | disposition home or self-care (01) ==
PROVIDERS: PCP Internal Medicine
DX: N40.0 Benign prostatic hyperplasia without lower urinary tract symptoms (principal); I10 Essential (primary) hypertension; E66.9 Obesity, unspecified; Z68.34 Body mass index [BMI] 34.0-34.9, adult; R20.0 Anesthesia of skin

== ENCOUNTER 2024-06-11 11:14 | Outpatient (REF) | payer OTHER, SELFPAY ==
--- NOTE | ~2024-06-11 | US_ITS ---
CLINICAL HISTORY: N40.0 - Benign prostatic hyperplasia without lower urinary tract symptoms US renal with Color Doppler Comparison: None Findings: Right kidney normal size and echotexture, 11.0 cm length. No hydronephrosis calculus or mass. Normal color flow. Left kidney normal size and echotexture, 12.1 cm length. No hydronephrosis calculus or mass. Normal color flow. Renal cortical cyst with a equivocal internal echoes measuring 7 x 4 x 5 mm. Impression: 1. Kidneys normal size and position with normal cortical width and echotexture. Renal cortical cyst on the left with internal echoes correlate with CT or MRI abdomen study with and without contrast renal protocol exam for further characterization This document has been electronically signed by: Eugene Aguilar MD on 06/13/2024 13:53:51
--- OUTSIDE RECORDS SUMMARY | 2024-06-11 13:46 | XMS_ITS | Data Portability ---
Author Organization [place] - [facility], [facility] Address [address] [place] [address] Assessment No assessment recorded. Plan of Treatment Reminders Order Date Submit Date Provider Last Modified By Organization Details Last Modified Time Details Appointments None recorded. Lab None recorded. Referral orthopedic referral 2016 017 [email or web address] Orthopaedics [facility], [address], [place], [address], 7 15:50:53 general surgeon referral 2015 016 [email or web address] Not available 6 19:44:45 electromyo gram referral - EMG of upper and lower extremitie s; patient with c/o tingling on arms, hands, legs and feet 2015 016 [email or web address] Not available 6 15:18:25 ophthalmol ogist referral - htn and blurry vision in the AM 2015 016 [facility], [address] [place], [address], 6 17:46:50 Procedures None recorded. Surgeries None recorded. Imaging None recorded. Medication Orders ibuprofen 800 mg tablet 2016 017 [facility] #[id number], [address], [place], [id number], 7 13:32:04 Zantac 300 mg tablet 2015 016 npadua [facility] #27658, [address], [place], [id number], 6 08:15:05 Proctosol HC 2.5 % rectal cream with applicator 2014 [email or web address] [facility]82143, [address], [place], [id number], 7 13:24:11 Daily Fiber (psyllium- sucrose) 3.4 gram/12 gram oral powder 2014 [facility], [address] [place], [place], [id number], 5 11:26:53 amlodipine 10 mg tablet 2014 [email or web address] [facility]25083, [address], [place], [id number], 5 11:26:53 Patient TargetsNo targets recorded. Patient Instructions Encounter Date Encounter Id Patient Instructions Last Modified By Organization Details Last Modified Time 03/08/2015 [id number] estre? ? ?imiento: instrucciones de cuidado - [constipation: care instructions] npadua Not available 03/13/2015 17:41:34 06/07/2015 [id number] aprenda sobre la presi? ? ?n arterial esvin - [learning about high blood pressure] npadua Not available 06/07/2015 19:21:13 presi? ? ?n arterial esvin: instrucciones de cuidado - [high blood pressure: care instructions] npadua Not available 06/07/2015 19:21:13 09/13/2015 [id number] enfermedad de reflujo gastroesof? ? ?gico (GERD): instrucciones de cuidado - [gastroesophageal reflux disease (GERD): care instructions] npadua Not available 09/14/2015 08:15:05 aprenda sobre la presi? ? ?n arterial esvin - [learning about high blood pressure] npadua Not available 09/14/2015 08:15:04 presi? ? 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 albanian 104 mL/mi n/1.7 3m2 > or = 60 normal Not Available [facility] [place] [facility] [address], [address], 09/17/2015 03:11:38 09/16/19 16 09/17/2015 CMP, serum or plasm a eGFR 120 mL/mi n/1.7 3m2 > or = 60 normal Not Available [facility] [place] [facility] [address], [address], 09/17/2015 03:11:38 09/16/19 16 09/17/2015 CMP, serum or plasm a BUN/creatini ne ratio NOT APPLIC ABLE (calc ) 6-22 Not Available [facility] [address], [place], [address], 09/17/2015 03:11:38 09/16/19 16 09/17/2015 CMP, serum or plasm a sodium 140 mmol/ L 135-14 6 normal Not Available [facility] [address], [place], [address], 09/17/2015 03:11:38 09/16/19 16 09/17/2015 CMP, serum or plasm a potassium 4.2 mmol/ L 3.5-5. 3 normal Not Available [facility] [address], [address], 09/17/2015 03:11:38 09/16/19 16 09/17/2015 CMP, serum or plasm a chloride 108 mmol/ L 98-110 normal Not Available [facility] [address], [place], [address], 09/17/2015 03:11:38 09/16/19 16 09/17/2015 CMP, serum or plasm a carbon dioxide 22 mmol/ L 19-30 normal Not Available [facility] [address] [place], [place], [address], 09/17/2015 03:11:38 09/16/19 16 09/17/2015 CMP, serum or plasm a calcium 9.1 mg/dL 8.6-10 .3 normal Not Available [facility] [place] [facility] [address] [place], [place], [address], 09/17/2015 03:11:38 09/16/19 16 09/17/2015 CMP, serum or plasm a protein, total 7.3 g/dL 6.1-8. 1 normal Not Available [facility] [address] [place], [place], [address], 09/17/2015 03:11:38 09/16/19 16 09/17/2015 CMP, serum or plasm a albumin 4.5 g/dL 3.6-5. 1 normal Not Available [facility] [place] [facility] [address] [place], [place], [address], 09/17/2015 03:11:38 09/16/19 16 09/17/2015 CMP, serum or plasm a globulin 2.8 g/dL_ (calc ) 1.9-3. 7 normal Not Available [facility] [address], [place], [address], 09/17/2015 03:11:38 09/16/19 16 09/17/2015 CMP, serum or plasm a albumin/glob ulin ratio 1.6 (calc ) 1.0-2. 5 normal Not Available [facility] [place] [facility] [address], [place], [address], 09/17/2015 03:11:38 09/16/19 16 09/17/2015 CMP, serum or plasm a bilirubin, total 0.3 mg/dL 0.2-1. 2 normal Not Available [facility] [place] [facility] [address] [place], [address], 09/17/2015 03:11:38 09/16/19 16 09/17/2015 CMP, serum or plasm a alkaline phosphatase 95 U/L 40-115 normal Not Available [facility] [place] [facility] [address] [place], [place], [address], 09/17/2015 03:11:38 09/16/19 16 09/17/2015 CMP, serum or plasm a AST 16 U/L 10-40 normal Not Available [facility] [address] [place], [place], [address], 09/17/2015 03:11:38 09/16/19 16 09/17/2015 CMP, serum or plasm a ALT 26 U/L 9-46 normal Not Available [facility] [address] [place], [place], [address], 09/17/2015 03:11:38 09/16/19 16 09/17/2015 folat e, serum folate, serum 19.3 NG/mL normal Refer ence Range Low: <3.4 Borde rline : 3.4-5 .4 Shante l: >5.4 Not Available [facility] [address] [place], [place], [address], 09/17/2015 03:11:38 09/16/19 16 09/17/2015 T4, free, serum T4, free 1.1 NG/dL 0.8-1. 8 normal Not Available [facility] [address] [place], [place], [address], 09/17/2015 03:11:39 09/16/19 16 09/17/2015 TSH, serum or plasm a TSH 1.22 mIU/L 0.40-4 .50 normal Not Available [facility] [address] [place], [place], [address], 09/17/2015 03:11:39 09/16/19 16 09/17/2015 vitam in B12, serum vitamin B12 432 pg/mL 200-11 00 normal Not Available [facility] [place] [facility] [address] [place], [place], [address], 09/17/2015 03:11:39 06/23/19 16 06/23/2015 ultra sound , neck No observ ation record ed. [email or web address] [facility] (Radiology) [address] [place], [address], 09/14/2015 08:04:56 10/06/19 16 10/06/2015 echoc ardio gram No observ ation record ed. [email or web address] [facility] [address] [address], [place], [address], 10/11/2015 14:11:43 Result Notes None recorded. Problems Name Problem SNOMED Code Status Onset Date Resolution Date Notes Provider Name and Address Organization Details Recorded Time Tobacco dependence syndrome 98246979 Active 1982 smokes 1 pack every 2 days. Mally ibarra [facility] 6 17:46:36 Elevated blood-pres sure reading without diagnosis of hypertensi on 168439286 Active Mally ibarra [facility] 6 17:46:36 Headache 76871883 Completed 08/20/2016 yael ibarra [facility] 7 13:36:32 Benign essential hypertensi on 0507617 Active Mally ibarra [facility] 6 08:15:04 Mixed hyperlipid emia 217162906 Active Mally ibarra [facility] 6 17:46:36 Constipati on 67469400 Completed 08/20/2016 yael ibarra [facility] 7 13:36:28 Internal hemorrhoid s 77891298 Active Mally ibarra [facility] 6 17:46:36 Mass of neck 550754084 Active [facility] 6 08:15:04 Paresthesi a of upper limb 01283436 Active [facility] 6 08:15:04 Paresthesi a of lower extremity 297874654 [facility] 6 08:15:04 Gastroesop hageal reflux disease 100270621 [facility] 6 08:15:04 Problem Notes None recorded. Procedures Surgical History Date Name Laterality Status Provider Name and Address Organization Details Recorded Time Appendectomy completed Charo Felton [facility] 12/14/2014 14:24:01 Imaging Results Imaging Date Name Status LastModified by Organization Details LastModified Time 06/23/2015 ultrasound, neck completed [email or web address] [facility] (Radiology) [address] [place], [address], 09/14/2015 08:04:56 10/06/2015 echocardiogram completed [email or web address] [facility] [address], [address], 10/11/2015 14:11:43 Procedure Notes None recorded. Medical [...] Updated DateTime 5 167.64 cm 102 /min 05947.4 8001 g 27.9 kg/m2 144 mm[Hg] 90 mm[Hg] Charo Felton [facility] 5 16:02:19 Date Recorded Body weight Body height Body mass index (BMI) Heart rate Systolic blood pressure Diastolic blood pressure Provider Name and Address Organization Details Last Updated DateTime 5 32314.2 9527 g 167.64 cm 27.6 kg/m2 90 /min 135 mm[Hg] 86 mm[Hg] Charo Felton [facility] 5 16:40:59 Date Recorded Body weight Body mass index (BMI) Body height Heart rate Systolic blood pressure Diastolic blood pressure Provider Name and Address Organization Details Last Updated DateTime 6 58145.0 3423 g 28.9 kg/m2 167.64 cm 103 /min 130 mm[Hg] 80 mm[Hg] Charo Felton [place] [facility] 6 17:40:33 Date Recorded Heart rate Body weight Body height Body mass index (BMI) Systolic blood pressure Diastolic blood pressure Provider Name and Address Organization Details Last Updated DateTime 6 101 /min 50152.5 503 g 167.64 cm 30.7 kg/m2 143 mm[Hg] 82 mm[Hg] Charo Felton [facility] 6 17:36:23 Date Recorded Systolic blood pressure Diastolic blood pressure Systolic blood pressure Diastolic blood pressure Provider Name and Address Organization Details Last Updated DateTime 09/13/2015 130 mm[Hg] 89 mm[Hg] 130 mm[Hg] 88 mm[Hg] Mally Flores [facility] 6 17:56:44 Date Recorded Body height Body weight Body mass index (BMI) Body temperature Oxygen saturation Oxygen saturation in Arterial blood by Pulse oximetry Systolic blood pressure Diastolic blood pressure Provider Name and Address Organization Details Last Updated DateTime 7 167.64 cm 58356.3 7 g 30.3 kg/m2 99.2 [degF] 99 % 99 % 150 mm[Hg] 97 mm[Hg] Charo Felton [facility] 7 13:06:20 Social History Question Answer Notes LastModified by Organizat ion Details LastModified Time Tobacco Smoking Status Current Every Day Smoker Not Available [facility] 02/09/2020 03:13:59 Do You Have An Advance Directive? No [id number] Information not available 02/09/2020 What Is Your Level Of Alcohol Consumption? Occasional [id number] Information not available 02/09/2020 What Is Your Level Of Caffeine Consumption? Moderate [id number] Information not available 02/09/2020 What Type Of Diet Are You Following? 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 No [id number] Information not available 02/09/2020 Hard Of Hearing Or Deaf In One Or Both Ears? No [email or web address] Information not available 12/14/2014 Legally Blind In One Or Both Eyes? No [email or web address] Information not available 12/14/2014 Marital Status Single [email or web address] Informatio n not available 12/14/2014 Performs Monthly Self-breast Exam? No [email or web address] Information not available 12/14/2014 Seat Belts Used Routinely Yes [email or web address] Information not available 12/14/2014 Smoke Alarm In Home Yes [email or web address] Information not available 12/14/2014 At What Age Did You Start Smoking Tobacco? 13 [id number] Information not available 02/09/2020 How Much Tobacco Do You Smoke? 0.5 PPD [id number] Information not available 02/09/2020 Do You Use Sunscreen Routinely? No [id number] Information not available 02/09/2020 How Many Years Have You Smoked Tobacco? 31 [id number] Information not available 02/09/2020 Sex: Unknown Functional Status Question Answer Note LastModified by Organization D etails LastModified Time What is your exercise level? Moderate [id number] Information not available 02/09/2020 Mental Status None [...] preservative free, adsorbed 5 completed Not Available [facility] 05/09/2019 02:10:23 Past Encounters Encounter ID Performer Location Encounter Start Date Encounter Closed Date Diagnosis/Indication Diagnosis SNOMED-CT Code Diagnosis ICD10 Code Diagnosis Note [id number] Nguyen [facility] [address] [place] [address],[address] [address] 12/14/2014 13:54:06 12/20/2014 14:17:02 Adult health examination 006518324 Overall benign exam; we discussed BMI, healthy diet; advised to stop smoking; increase exercise; avoid drugs, limit alcohol; discussed STD prevention . Refused Flu shot Labs: cbc, cmp, fasting lipids, TSH, HIV, urine GC, HEP C Elevated blood-pressure reading without diagnosis of hypertension 371396110 Recheck in 4 weeks Headache 68597229 Unrema rkab le neurologic al exam; normal head CT on 11/28/14 A s requested, referred to neurologis t Refilled Fioricet Administra tion of tetanus vaccine 616935528 Td today [id number] Mally Flores [address] [address] 01/14/2015 15:50:43 01/25/2015 14:26:13 Benign essential hypertension 6032743 I10 BP 154/101 We discussed labs Prescribed amlodipine 5mg; discussed possible side effects F/U in 4 weeks to recheck Mixed hyperlipidemia 267 304529 E78.2 Fasting lipids on 12/25/2014 LDL 145, total cholestero l 205; HDL 39 10 year risk factors for heart disease or stroke is 10.8%. On base of the patient's risk factors of smoking and HTN, the ACC/AHA guidelines recommend to start moderate to intense stain treatment. The patient prefers to wait until next visit to discuss. Advised to start lifestyle modificati on. [id number] Mally[address] [address] 02/18/2015 15:53:38 02/25/2015 17:07:04 Benign essential hypertension 4533942 I10 BP 44/70 Increased amlodipine to 10mg daily Recheck in 3 months Constipation 32778389 K5 9.00 Diet and bowel regimen discussed with patient. Will try strick adherence to bowel regimes; f/u here in 4 weeks Consider referral to GI for colonoscop y if s/s do not improve. Internal hemorrhoids 906 45762 K64.8 Rectal cream prescribed [id number] Mally Flores [address] [address] 03/08/2015 15:37:55 03/10/2015 14:09:10 Constipation 33568231 K59.00 Diet and bowel regimen discussed with patient. Continue to maintain strick adherence to bowel regimen Consider referral to GI for colonoscop y if s/s do not improve. [id number] Mally [facility] [address] [place] [address],[address] [place] [address] 06/07/2015 17:33:06 06/08/2015 17:46:50 Benign essential hypertension 6004734 I10 Goal BP <140/90 BP this visit - 130/80 No complaints of hypo/hyper tension noted other than blurry vision in the AM. Eye exam unremarkab le. Will refer to opthomolog ist. Recheck in [address] for blurry vision Mass of neck 412629691 R 22.1 Pt noted to have a 8bja9ma mass on the right posterior of neck. He reports it has been increasing in size over the past 9months. Pt reports pressure but no pain. Has full ROM and no other symptoms associated with mass. Sent for Ultrasound of neck Will refer to dermatolog y or surgeon depending on U/S results [id number] Mally [facility] [address] [place] [address] 09/13/2015 17:04:01 09/14/2015 16:32:14 Benign essential hypertension 0033895 I10 Goal BP <140/90 BP this visit - 138/80 No complaints of hypo/hyper tension noted other than blurry vision in the AM. Eye exam unremarkab le. Will refer to opthomolog ist. Recheck in [address] for blurry vision Mass of neck 569916499 R 22.1 Pt noted to have a 2zir0ka mass on the right posterior of neck. He reports it has been increasing in size over the past 9months. Pt reports pressure but no pain. Has full ROM and no other symptoms associated with mass. Ultrasound of neck, possible lipoma Will refer to surgeon Tanya hogan of upper limb 07387189 R20.2 Not a clear etiology, cervical and [...] to neurologis cindy hogan of lower extremity 704271766 R20.2 Will f/u after labs and EMG Gastroesop hageal reflux disease 040743894 K21.9 Continue Zantac since it works for patient. [id number] yael silvestre [facility] [address] [place] [address] 08/20/2016 13:01:41 08/21/2016 13:50:02 Lumbar radiculopathy 111009099 M54.16 Unchanged. Reviewed EMR from [facility]. Dates: Pt visited center in 2 different occasions on 08/12/2016 and 08/16/2016 : Reviewed hx, plan, meds.Tried multiple meds w/no relief: Percocet 5mg/325 mg 1 tab po q6h #15 Prednisone 20 mg take 3 tablets for 3 days. Flexeril 5 mg po daily #15 Immaculata 5 mg/325 mg 2 tablets po q4h #25 Soma 350 MG po q6h daily #25Denies any injuries or trauma.No red flags.Will try ibuprofen. Reviewed side effects. Pt verbalized understand ing.Ordere d Xray for further evaluation .Placed referral to ortho for further evaluation .Reviewed warning s/sxs to RT LFDs or ED. Pt verbalized understand ing.No sensory loss or motor deficit. Benign ess ential hypertension 5260782 I10 Uncontroll ed.BP today: 150/97Goal <130/80.Cu rrently taking amlodipine 10 mg PO Daily. Denies any side effects.Wi ll f/u in 1 week.Last creatinine on 09/16/2015 : 0.90Last K+ on 09/16/2015 : 4.2 Obesity 825715207 E66.9 BMI: 30.3Recomm end weight loss, healthy [...] CHARLES - LEONO - OPEN ACCESS PLUS [id number] Chase Chavarria [id number] Chase Chavarria 03/08/2015 1 [employer] - SODEXO - OPEN ACCESS PLUS [id number] Chase Chavarria [id number] 1 [id number] Chase Chavraria 06/07/2015 1 [employer] - SODEXO - OPEN ACCESS PLUS [id number] Chase Chavarria [id number] 1 [id number] Chase Chavarria 09/13/2015 1 [employer] - SODEXO - OPEN ACCESS PLUS [id number] Chase Chavarria [id number] 1 [id number] Chase Chavarria 08/20/2016 1 [employer] - SODEXO - OPEN ACCESS PLUS [id number] Chase Chavarria [id number] 1 [id number] Chase Chavarria Notes Date Note Type Note [...] of the neck. Not painful [place] Estr[facility] 09/14/2015 08:15:56 7 text/html Back PainReported bypatient.Location:pain radiating to the legs Quality:sharp Severity:pain level 8/10;moderate (5-7) Duration:acute Onset/Timing:recurrent episode; 2weeks ago Context:used medications for back pain Aggravating Factors:movement/position ing;twisting;flexing back;extending back Associated Symptoms:no fever; no weak limbs; no tingling; no incontinence; no shortness of breath 46 y/o new patient to myself here for ED-follow up for low back pain.Location: [facility].Dates: Pt visited center in 2 occasions on 08/12/2016 and 08/16/2016. New meds: Percocet 5mg/325 mg 1 tab po q6h #15Prednisone 20 mg take 3 tablets for 3 days.Flexeril 5 mg po daily #15 - Immaculata 5 mg/325 mg 2 tablets po q4h [...] calf pain. yael ibarra [place] [facility] 08/20/2016 13:42:45
--- OUTSIDE RECORDS SUMMARY | 2024-06-11 13:46 | XMS_ITS | Data Portability ---
Author Organization [facility] [place], [place] Medicaid MRI Address [address] [place] [address] Care Team Providers Care Tele Marketing Executive Name Role Phone HUGO VALADEZ Primary Care Provider HUGO VALADEZ Referring Provider RICKY HINOJOSA Spinal [...] tried and failed numerous conservative treatments including [id number] anti-inflammatorie s, prescription narcotics, as well as [...] Sincerely, Kushal Sanchez PA-C Orthopedic Spine Surgery [facility] Spine [facility] [email or web address] Not available 09/06/2016 14:17:28 10/11/2016 10/11/2016 MRI:[facility]. MRI of his lumbar spine demonstrates L3-4: [...] Sincerely, Kushal Sanchez PA-C Orthopedic Spine Surgery [facility] Spine [facility] [email or web address] Not available 10/11/2016 15:05:57 11/15/2016 11/15/2016 Impression/Plan: [...] Sincerely, Kushal Sanchez PA-C Orthopedic Spine Surgery [facility] [email or web address] Not available 11/15/2016 15:55:05 Plan of Treatment Reminders Order Date Submit Date Provider Last Modified By Organization Details Last Modified Time Details Appointments None recorded. Lab None recorded. Referral None recorded. Procedures None recorded. Surgeries None recorded. Imaging XR, lumbosacral spine, 4 or more view 2016 017 [email or web address] In-Office Order, Internal Use Only DO Not Attach Compendium DO Not Attach Compendium, Do Not Delete/merge, [id number] 07:57:59 Medication Orders None recorded. Patient [...] Details Last Updated DateTime 09/06/2016 170.18 cm 95780.55 g 29.8 kg/m2 Alisha Huston MA - Orthopa[facility] 09/06/2016 13:29:11 Date Recorded Pain severity - 0-10 verbal numeric rating [Score] - Reported Provider Name and Address Organization Details Last Updated DateTime 09/06/2016 9 Not Available [facility] 8 05:51:49 Date Recorded Body height Body mass index (BMI) Body weight Provider Name and Address Organization Details Last Updated DateTime 10/11/2016 170.18 cm 29.8 kg/m2 76195.55 g [facility] 10/11/2016 14:52:39 Date Recorded Pain severity - 0-10 verbal numeric rating [Score] - Reported Provider Name and Address Organization Details Last Updated DateTime 10/11/2016 7 Not Available [facility] 8 05:51:54 Date Recorded Body height Body mass index (BMI) Body weight Provider Name and Address Organization Details Last Updated DateTime 11/15/2016 170.18 cm 29.8 kg/m2 74267.55 g [facility] 11/15/2016 15:26:14 Date Recorded Pain severity - 0-10 verbal numeric rating [Score] - Reported Provider Name and Address Organization Details Last Updated DateTime 11/15/2016 0 Not Available [facility] 8 05:52:02 Social History Question Answer Notes LastModified by Organizat ion Details LastModified Time Tobacco Smoking Status Current Every Day Smoker Alisha ibarra [facility] 09/06/2016 13:29:54 What Is Your Level Of Alcohol Consumption? Occasional Information not available 09/06/2016 Auto Related Injury? No [email or web address] Information not available 09/06/2016 Are You Currently Employed? Yes [email or web address] Information not available 09/06/2016 What Was The Date Of Your Most Recent Tobacco Screening? 11/15/2016 Information not available 10/31/2018 How Much Tobacco Do You Smoke? 0.5 PPD [email or web address] Information not available 09/06/2016 Work Related Injury? No [email or web address] Information not available 09/06/2016 Sex: Unknown Functional Status None recorded. Mental Status None recorded. Family History Relationship Description Onset Age of this Age Resolved Age Notes LastModified by Organization Details LastModified Time Mother Hypertensive disorder Not available 2016 13:29:43 Medical History Condition Response Hereditary Defects N Coronary Artery Disease N Gout N Tremors/Seizures/Dizziness/Epilepsy N Excessive Thirst/Fatigue N Lung Disease N Blood Clots N Fever, Chills, Headaches N Pacemaker N Heart Disease/Problems N Breathing Problems N Heart Attack ([place]) N Sexually Transmitted Diseases N Bleeding Disorder/Tendencies [...] SNOMED-CT Code Diagnosis ICD10 Code Diagnosis Note [id number] GE[place]IA Contreras OFFICE-[facility] ot a [address] [address] 09/06/2016 13:08:59 09/06/2016 14:45:14 Low back pain 238095137 M54.5 Lumbar radiculopathy 128 851579 M54.16 Degenerati on of lumbar intervertebral disc 66753818 M51.36 [id number] [place] Contreras OFFICE-N. [facility] ot a [address] [address] 10/11/2016 14:40:59 10/11/2016 15:08:13 Lumbar radiculopathy 309230593 M54.16 Degenerati on of lumbar intervertebral disc 33719013 M51.36 [id number] GE[place]IA Contreras [facility] - [address] [phone] 11/15/2016 15:14:02 11/15/2016 16:07:39 Lumbar radiculopathy 143841669 M54.16 Health Concerns Section Related Observation LastModified by Organization Detai ls LastModified Time None Recorded Concern Status LastModified by Organization Details LastModified Time None Recorded Advance Directives Directive None Recorded Payers Encounter Date Sequence Insurance Name Policy Number Policy Roberson Covered Member ID Roberson Member ID Guarantor Name 09/06/2016 1 [facility] [id number] Chase Chavarria [id number] 1 Chase Chavarria 10/11/2016 1 [facility] [id number] Chase Chavarria [id number] 1 Chase Chavarria 11/15/2016 1 [facility] [id number] Chase Chavarria [id number] Chase Chavarria Notes Date Note Type [...] of bowel or bladder function GE[place] Contreras [address] [place] [address], [phone], [facility] 09/06/2016 14:17:50 10/11/2016 text/html Mr Chavarria present s to the office today for follow-up of MRI results of his lumbar spine. He continues to complain of significant back pain that radiates into his lower extremities. GEORGIA Contreras [address] [place] [address], [phone], [facility] 10/11/2016 15:06:24 11/15/2016 text/html Mr. Chavarria presen ts to the office today for follow-up he recently had an L4-[address] Gallegos. At presentation today he is doing extremely well he denies any back or leg pain. He is very happy. GEORGIA Contreras [address] [place] [address], [phone], [facility] 11/15/2016 15:55:26
== END 2024-06-11 11:15 | disposition home or self-care (01) ==
LOC: HO.US 11:14
PROVIDERS: PCP Internal Medicine; Visit Provider Urology
DX: N40.0 Benign prostatic hyperplasia without lower urinary tract symptoms (principal); R35.1 Nocturia
CPT/HCPCS: 76775

== ENCOUNTER → 2024-06-11 11:16 | Outpatient (BNV) | payer OTHER, SELFPAY | PROVIDERS: PCP Internal Medicine; Visit Provider Radiology Diagnostic Radiology | DX: N28.1 Cyst of kidney, acquired (principal) | CPT/HCPCS: 76775 ==

== ENCOUNTER 2024-06-22 15:45 | Outpatient (AMB) | payer OTHER, SELFPAY ==
--- NOTE | 2024-06-22 14:22 | MHC.OFFVIS ---
Intake Visit Reasons: 14 weeks/ US Intake Note: Patient presents to office today for 14 weeks/US Urology Medication: Tamsulosin Antibiotic Allergies: None Blood Thinners: None Exterminator Helper Required: No Accompanied by: Self / Same As Patient Allergies No Known Allergies [No Known Allergies*] Allergy (Verified 07/18/24 15:08) HPI Comments Details: 06/22/24--54-year-old male presenting with follow-up concerns for Benign Prostatic Hyperplasia. Initial symptoms included frequent nocturia, and an elevated AUA symptom score, leading to the initiation of tamsulosin. A renal ultrasound revealed a small left renal cyst. The patient reports improvement in urinary symptoms with tamsulosin, though experiencing retrograde ejaculation. Current management involves continuation of the medication with subsequent follow-up in nine months, accompanied by repeat renal ultrasound and prostate assessment. Urinary Symptoms Review - Nocturia: Previously 3-4 times per night - Current urinary flow: Improved, steady good stream - Previous symptoms: Hesitancy and intermittency, both resolved with current treatment - Additional experiences: Retrograde ejaculation noted as a side effect of tamsulosin - Medication: Tamsulosin, with noted positive effect on urinary symptoms Results - Tests: Renal ultrasound (06/11/24) - Findings: Normal kidney morphology, detected a small subcentimeter cyst in the left kidney deemed clinically insignificant 03/19/24--Chase Chavarria 54-year-old here for evaluation of BPH symptoms. He is bothered significantly by getting up 3-4 times nighttime. He also states that there is some hesitancy and interrupting of the urinary stream. He denies dysuria. AUA symptom score 22. Bladder scan today PVR 55 mL. I have discussed trial of tamsulosin 0.4 mg at nighttime. Discussed side effects including but not limited to retrograde ejaculation and dizziness. PSA-01/29--0.88 Reviewed: Bladder ultrasound 10/30/2023-mildly enlarged prostate with intention of the prostate into bladder [facility] Medical History Low back pain Colon cancer screening Hypercholesterolemia Osteoarthritis of lumbar spine Tobacco use disorder Obesity (BMI 30-39.9) GERD without esophagitis Essential (primary) hypertension History of pilonidal cyst Surgical History History of incision and drainage History of appendectomy Family History Mother Myocardial infarction CVD (cardiovascular disease) Father Stomach cancer Son In good health Daughter In good health Daughter In good health Daughter In good health Social History Housing: Apartment Alcohol intake: current Alcohol intake frequency: holidays/special occasions only Comment: 2x a month5 -6 drinks Patient Tobacco Use Status: Current everyday Tobacco user Tobacco use type: Cigarette Cigarettes Per Day: 4 Years Smoked: 40- 6 cigarettes a day Packs per year/per ci.00 e-Cigarette/Vaping Use: Never Used Second Hand Smoke Exposure: No service: No Current occupational status: employed 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 [employer] Cognitive needs: No Hearing needs: No Vision needs: Yes (Glasses) Review of Systems Const All systems reviewed & are unremarkable except as noted in HPI and below Reports no additional complaints Eyes Reports no additional complaints ENT Reports no additional complaints Card Reports no additional complaints Resp Reports no additional complaints GI Reports no additional complaints Reports as per HPI Musc Reports no additional complaints Skin/Breast Reports system reviewed and no additional complaints, except as documented Neuro Reports no additional complaints Psych Reports no additional complaints Endo Reports no additional complaints Lance/Lymph Reports no additional complaints Aller/Immun Reports no additional complaints Results Reviewed Results Reviewed: Date of Service: 06/11/24 CLINICAL HISTORY: N40.0 - Benign prostatic hyperplasia without lower urinary tract symptoms US renal with Color Doppler Comparison: None Findings: Right kidney normal size and echotexture, 11.0 cm length. No hydronephrosis calculus or mass. Normal color flow. Left kidney normal size and echotexture, 12.1 cm length. No hydronephrosis calculus or mass. Normal color flow. Renal cortical cyst with a equivocal internal echoes measuring 7 x 4 x 5 mm. Impression: 1. Kidneys normal size and position with normal cortical width and echotexture. Renal cortical cyst on the left with internal echoes correlate with CT or MRI abdomen study with and without contrast renal protocol exam for further characterization Date of Service: 10/30/23 US PELVIS LIMITED (BLADDER) CLINICAL INFORMATION: Frequency of micturition. COMPARISON: None available. TECHNIQUE: Real-time imaging of the bladder. FINDINGS: BLADDER: Well distended and normal. Bilateral ureteral jets are demonstrated. Prevoid bladder volume is 259.8 mL. Postvoid bladder volume is 64.3 mL. ADDITIONAL FINDINGS: The prostate gland is mildly enlarged with median lobe hypertrophy indenting the bladder base. IMPRESSION: 1. Mildly enlarged prostate gland with median lobe hypertrophy indenting the bladder base. 2. Post void residual of 63 mL. Assessment & Plan Assessment & Plan (1) BPH (benign prostatic hyperplasia): Comment: Mild October 2023 Code(s): N40.0 - Benign prostatic hyperplasia without lower urinary tract symptoms Category: Medical (2) Nocturia: Code(s): R35.1 - Nocturia Category: Medical (3) Slowing of urinary stream: Code(s): R39.198 - Other difficulties with micturition Category: Medical Plan Plan The current management plan for Benign Prostatic Hyperplasia involves continuing tamsulosin due to effective alleviation of symptoms. Monitoring of the left renal cyst will be via annual ultrasound without immediate intervention. Follow-up in nine months will include reassessment of symptoms and prostate health blood work. Discussions with the patient clarified expectations, medication effects, and follow-up procedures. Orders: Orders AMB Urinalysis Automated 06/22/24 Z13.9 - Encounter for screening, unspecified Patient Instructions: The patient had an opportunity to ask questions regarding treatment plan. The patient expressed understanding and agreement with the above treatment plan. The patient is aware they should contact our office by phone for worsening of their current condition or the appearance of new symptoms. Compliance is encouraged with any medications and followup testing that is ordered. It is a privilege to be allowed the opportunity to participate in the urologic care of your patient. If you have any questions or concerns regarding treatment for the above conditions please do not hesitate to contact me. The office telephone contact is [phone]. This note is constructed in part using voice recognition software. While every effort has been made to ensure accuracy mail handler errors may have been included. Yours sincerely, Jason Ramos MD Scribe Plan - Not visible on output: Patient was informed and verbally consented to the use of an ambient scribe for clinic note documentation during this visit. Coding Level of Care Code Est Pt Level 3 (56663) Diagnoses BPH (benign prostatic hyperplasia) N40.0 Nocturia R35.1 Slowing of urinary stream R39.198
== END 2024-06-22 16:22 | disposition home or self-care (01) ==
LOC: HO.HUSH 15:45
PROVIDERS: PCP Internal Medicine; Visit Provider Urology
DX: N40.0 Benign prostatic hyperplasia without lower urinary tract symptoms (principal); R35.1 Nocturia; R39.198 Other difficulties with micturition
CPT/HCPCS: 99213

== ENCOUNTER → 2024-06-22 15:45 | Outpatient (BNVA) | payer OTHER, SELFPAY | PROVIDERS: PCP Internal Medicine; Visit Provider Urology ==

== ENCOUNTER 2024-06-25 12:32 | Outpatient (REF) | payer OTHER, SELFPAY ==
--- NOTE | 2024-06-25 12:36 | EMG_ITS ---
Chief complaint: Chronic back pain. Three months ago, started noticing numbness from knee down, without pain. No footdrop. Reason for referral: Evaluate for peroneal neuropathy Referred by: Clara Cazares NP Procedure done: Bilateral lower extremity NCS/EMG Precautions and/or limitations: None The limb temperature was monitored continuously and remained between 32-36 degrees C during the performance of the NCS. Nerve Conduction Studies Anti Sensory Summary Table ?Stim Site NR Onset (ms) Norm Onset (ms) Peak (ms) Norm Peak (ms) O-P Amp (?V) Norm O-P Amp Site1 Site2 Delta-0 (ms) Dist (cm) Derrick (m/s) Norm Derrick (m/s) Left Sural Anti Sensory (Lat Mall) Calf ? 3.1 3.8 <4.0 16.9 >5.0 Calf Lat Mall 3.1 14.0 45 Right Sural Anti Sensory (Lat Mall) Calf ? 3.3 3.7 <4.0 8.2 >5.0 Calf Lat Mall 3.3 14.0 42 Motor Summary Table ?Stim Site NR Onset (ms) Norm Onset (ms) O-P Amp (mV) Norm O-P Amp iAmp (mV) Amp (1st) (%) Site1 Site2 Delta-0 (ms) Dist (cm) Derrick (m/s) Norm Derrick (m/s) Right Peroneal Motor (Ext Dig Brev) Ankle ? 4.0 <4.0 5.1 >2.5 6.0 100.0 Ankle Ext Dig Brev 4.0 0.0 B Fib ? 10.2 4.4 5.0 86.3 B Fib Ankle 6.2 30.0 48 >40 Poplt ? 10.9 4.3 4.9 84.3 Poplt B Fib 0.7 4.0 57 >40 Left Tibial Motor (Abd Espinosa Brev) Ankle ? 4.5 <5 7.3 >2.5 10.4 100.0 Ankle Abd Espinosa Brev 4.5 0.0 Knee ? 12.8 7.7 10.5 105.5 Knee Ankle 8.3 37.0 45 >40 Right Tibial Motor (Abd Espinosa Brev) Ankle ? 4.1 <5 9.0 >2.5 11.3 100.0 Ankle Abd Espinosa Brev 4.1 0.0 Knee ? 12.6 7.4 9.1 82.2 Knee Ankle 8.5 37.0 44 >40 EMG ?Side Muscle Nerve Root Ins Act Fibs Psw Amp Dur Poly Recrt Int Pat Comment Right AbdHallucis MedPlantar S1-2 Nml Nml Nml Nml Nml 0 Nml Complete Right AntTibialis Dp Br Peron L4-5 Nml Nml Nml Nml Nml 0 Nml Complete Right PostTibialis Tibial L5, S1 Nml Nml Nml Nml Nml 0 Nml Complete Right MedGastroc Tibial S1-2 Nml Nml Nml Nml Nml 0 Nml Complete Right VastusMed Femoral L2-4 Nml Nml Nml Nml Nml 0 Nml Complete Left AbdHallucis MedPlantar S1-2 Nml Nml Nml Nml Nml 0 Nml Complete Left AntTibialis Dp Br Peron L4-5 Nml Nml Nml Nml Nml 0 Nml Complete Left PostTibialis Tibial L5, S1 Nml Nml Nml Nml Nml 0 Nml Complete Left MedGastroc Tibial S1-2 Nml Nml Nml Nml Nml 0 Nml Complete Left VastusMed Femoral L2-4 Nml Nml Nml Nml Nml 0 Nml Complete Paraspinal EMG ?Side Muscle Nerve Root Ins Act Fibs Psw Comment Right Lumbar Upper Rami Nml Nml Nml Right Lumbar Mid Rami Nml Nml Nml Right Lumbar Lower Rami Nml Nml Nml Left Lumbar Upper Rami Nml Nml Nml Left Lumbar Mid Rami Nml Nml Nml Left Lumbar Lower Rami Nml Nml Nml FINDINGS: All motor and sensory nerves tested showed normal latencies, amplitudes and conduction velocities. Concentric needle EMG was performed in selected muscles of the bilateral lower extremity and lumbar paraspinals. Study did not reveal signs of electric abnormalities as shown in the table above. IMPRESSION: 1. This is a normal study. 2. There is no electrodiagnostic evidence for peroneal neuropathy, tibial neuropathy, lumbosacral plexopathy, lumbar radiculopathy, or peripheral neuropathy. Thank you for your kind referral. Danica Hamilton MD, NATALIA Board Certified, [place] [employer] and [employer] (ABPMR) Board Certified, [place] [employer] Electrodiagnostic [employer] (ABEM) CODIN 37515 x 2 MTDD
--- OUTSIDE RECORDS SUMMARY | 2024-06-25 14:54 | XMS_ITS | Data Portability ---
Author Organization [facility] Address [address] [facility] [address] [place] [address] Assessment No assessment recorded. Plan of Treatment Reminders Order Date Submit Date Provider Last Modified By Organization Details Last Modified Time Details Appointments None recorded. Lab None recorded. Referral orthopedic referral 2016 017 [email or web address] Orthopa[facility], [address] [facility], [place], [address], 7 15:50:53 general surgeon referral 2015 016 [email or web address] Not available 6 19:44:45 electromyo gram referral - EMG of upper and lower extremitie s; patient with c/o tingling on arms, hands, legs and feet 2015 016 [email or web address] Not available 6 15:18:25 ophthalmol ogist referral - htn and blurry vision in the AM 2015 016 [facility], [address] [place], [address], 6 17:46:50 Procedures None recorded. Surgeries None recorded. Imaging None recorded. Medication Orders ibuprofen 800 mg tablet 2016 017 INTERFACE [facility][id number], [address] [place], [place], [id number], 7 13:32:04 Zantac 300 mg tablet 2015 016 npadua [facility] #[id number], [address] [place], [place], [id number], 6 08:15:05 Proctosol HC 2.5 % rectal cream with applicator 2014 [email or web address] [facility][id number], [address] [place], [place], [id number], 7 13:24:11 Daily Fiber (psyllium- sucrose) 3.4 gram/12 gram oral powder 2014 [email or web address] [id number], [address] [place], [place], [id number], 5 11:26:53 amlodipine 10 mg tablet 2014 [email or web address] [facility] [facility][id number], [address] [place], [place], [id number], 5 11:26:53 Patient TargetsNo targets recorded. Patient Instructions Encounter Date Encounter Id Patient Instructions Last Modified By Organization Details Last Modified Time 03/08/2015 [id number] estre? ? ?imiento: instrucciones de cuidado - [constipation: care instructions] [email or web address] Not available 03/13/2015 17:41:34 06/07/2015 [id number] aprenda sobre la presi? ? ?n arterial esvin - [learning about high blood pressure] npadua Not available 06/07/2015 19:21:13 presi? ? ?n arterial esvin: instrucciones de cuidado - [high blood pressure: care instructions] npadua Not available 06/07/2015 19:21:13 09/13/2015 [id number] enfermedad de reflujo gastroesof? ? ?gico (GERD): instrucciones de cuidado - [gastroesophageal reflux disease (GERD): care instructions] npadua Not available 09/14/2015 08:15:05 aprenda sobre la presi? ? ?n arterial esvin - [learning about high blood pressure] npadua Not available 09/14/2015 08:15:04 presi? ? 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 Referral for Benign essential hypertension htn and [...] refer ence inter ann marie Not Available [facility] [address], [address], 09/17/2015 03:11:38 09/16/19 16 09/17/2015 CMP, serum or plasm a urea nitrogen (BUN) 18 mg/dL 7-25 normal Not Available [facility] [address], [address], 09/17/2015 03:11:38 09/16/19 16 09/17/2015 CMP, serum or plasm a creatinine 0.90 mg/dL 0.60-1 .35 normal Not Available [facility] [employer] [facility] [place] [facility] [address], [address], 09/17/2015 03:11:38 09/16/19 16 09/17/2015 CMP, serum or plasm a eGFR non-afr. belgian 104 mL/mi n/1.7 3m2 > or = 60 normal Not Available [facility] [place] [facility] [address], [address], 09/17/2015 03:11:38 09/16/19 16 09/17/2015 CMP, serum or plasm a eGFR 120 mL/mi n/1.7 3m2 > or = 60 normal Not Available [facility] [place] [facility] [address], [address], 09/17/2015 03:11:38 09/16/19 16 09/17/2015 CMP, serum or plasm a BUN/creatini ne ratio NOT APPLIC ABLE (calc ) 6-22 Not Available [facility] [address], [place], [address], 09/17/2015 03:11:38 09/16/19 16 09/17/2015 CMP, serum or plasm a sodium 140 mmol/ L 135-14 6 normal Not Available [facility] [address], [place], [address], 09/17/2015 03:11:38 09/16/19 16 09/17/2015 CMP, serum or plasm a potassium 4.2 mmol/ L 3.5-5. 3 normal Not Available [facility] [address], [address], 09/17/2015 03:11:38 09/16/19 16 09/17/2015 CMP, serum or plasm a chloride 108 mmol/ L 98-110 normal Not Available [facility] [address], [place], [address], 09/17/2015 03:11:38 09/16/19 16 09/17/2015 CMP, serum or plasm a carbon dioxide 22 mmol/ L 19-30 normal Not Available [facility] [address] [place], [place], [address], 09/17/2015 03:11:38 09/16/19 16 09/17/2015 CMP, serum or plasm a calcium 9.1 mg/dL 8.6-10 .3 normal Not Available [facility] [place] [facility] [address] [place], [place], [address], 09/17/2015 03:11:38 09/16/19 16 09/17/2015 CMP, serum or plasm a protein, total 7.3 g/dL 6.1-8. 1 normal Not Available [facility] [address] [place], [place], [address], 09/17/2015 03:11:38 09/16/19 16 09/17/2015 CMP, serum or plasm a albumin 4.5 g/dL 3.6-5. 1 normal Not Available [facility] [place] [facility] [address] [place], [place], [address], 09/17/2015 03:11:38 09/16/19 16 09/17/2015 CMP, serum or plasm a globulin 2.8 g/dL_ (calc ) 1.9-3. 7 normal Not Available [facility] [address], [place], [address], 09/17/2015 03:11:38 09/16/19 16 09/17/2015 CMP, serum or plasm a albumin/glob ulin ratio 1.6 (calc ) 1.0-2. 5 normal Not Available [facility] [place] [facility] [address], [place], [address], 09/17/2015 03:11:38 09/16/19 16 09/17/2015 CMP, serum or plasm a bilirubin, total 0.3 mg/dL 0.2-1. 2 normal Not Available [facility] [place] [facility] [address] [place], [address], 09/17/2015 03:11:38 09/16/19 16 09/17/2015 CMP, serum or plasm a alkaline phosphatase 95 U/L 40-115 normal Not Available [facility] [place] [facility] [address] [place], [place], [address], 09/17/2015 03:11:38 09/16/19 16 09/17/2015 CMP, serum or plasm a AST 16 U/L 10-40 normal Not Available [facility] [address] [place], [place], [address], 09/17/2015 03:11:38 09/16/19 16 09/17/2015 CMP, serum or plasm a ALT 26 U/L 9-46 normal Not Available [facility] [address] [place], [place], [address], 09/17/2015 03:11:38 09/16/19 16 09/17/2015 folat e, serum folate, serum 19.3 NG/mL normal Refer ence Range Low: <3.4 Borde rline : 3.4-5 .4 Shante l: >5.4 Not Available [employer] [facility] [facility] [address] [place], [place], [address], 09/17/2015 03:11:38 09/16/19 16 09/17/2015 T4, free, serum T4, free 1.1 NG/dL 0.8-1. 8 normal Not Available [facility] [address] [place], [place], [address], 09/17/2015 03:11:39 09/16/19 16 09/17/2015 TSH, serum or plasm a TSH 1.22 mIU/L 0.40-4 .50 normal Not Available [facility] [address] [place], [place], [address], 09/17/2015 03:11:39 09/16/19 16 09/17/2015 vitam in B12, serum vitamin B12 432 pg/mL 200-11 00 normal Not Available [facility] [place] [facility] [address] [place] [address] [place], [place], [address], 09/17/2015 03:11:39 06/23/19 16 06/23/2015 ultra sound , neck No observ ation record ed. [email or web address] [facility] (Radiology) [address] [place], [address], 09/14/2015 08:04:56 10/06/19 16 10/06/2015 echoc ardio gram No observ ation record ed. [email or web address] [facility] [address] [address], [place], [address], 10/11/2015 14:11:43 Result Notes None recorded. Problems Name Problem SNOMED Code Status Onset Date Resolution Date Notes Provider Name and Address Organization Details Recorded Time Tobacco dependence syndrome 26770007 Active 1982 smokes 1 pack every 2 days. Mally ibarra [facility] 6 17:46:36 Elevated blood-pres sure reading without diagnosis of hypertensi on 692733670 Active Mally ibarra [facility] 6 17:46:36 Headache 16798238 Completed 08/20/2016 yael ibarra [facility] 7 13:36:32 Benign essential hypertensi on 5857457 Active Mally ibarra [facility] 6 08:15:04 Mixed hyperlipid emia 340785601 Active Mally ibarra [facility] 6 17:46:36 Constipati on 16743539 Completed 08/20/2016 yael ibarra [facility] 7 13:36:28 Internal hemorrhoid s 67186989 Active Mally ibarra [facility] 6 17:46:36 Mass of neck 324357760 Active [facility] 6 08:15:04 Paresthesi a of upper limb 57374165 Active [facility] 6 08:15:04 Paresthesi a of lower extremity [id number] [facility] 6 08:15:04 Gastroesop hageal reflux disease [id number] [facility] 6 08:15:04 Problem Notes None recorded. Procedures Surgical History Date Name Laterality Status Provider Name and Address Organization Details Recorded Time Appendectomy completed Charo Felton [facility] 12/14/2014 14:24:01 Imaging Results Imaging Date Name Status LastModified by Organization Details LastModified Time 06/23/2015 ultrasound, neck completed [email or web address] [facility] (Radiology) [address] [place], [address], 09/14/2015 08:04:56 10/06/2015 echocardiogram completed [email or web address] [facility] [address], [address], 10/11/2015 14:11:43 Procedure Notes None recorded. Medical [...] Updated DateTime 5 167.64 cm 102 /min 10589.4 8001 g 27.9 kg/m2 144 mm[Hg] 90 mm[Hg] Charo Felton [facility] 5 16:02:19 Date Recorded Body weight Body height Body mass index (BMI) Heart rate Systolic blood pressure Diastolic blood pressure Provider Name and Address Organization Details Last Updated DateTime 5 48077.2 9527 g 167.64 cm 27.6 kg/m2 90 /min 135 mm[Hg] 86 mm[Hg] Charo Felton [facility] 5 16:40:59 Date Recorded Body weight Body mass index (BMI) Body height Heart rate Systolic blood pressure Diastolic blood pressure Provider Name and Address Organization Details Last Updated DateTime 6 16187.0 3423 g 28.9 kg/m2 167.64 cm 103 /min 130 mm[Hg] 80 mm[Hg] Charo Felton [facility] 6 17:40:33 Date Recorded Heart rate Body weight Body height Body mass index (BMI) Systolic blood pressure Diastolic blood pressure Provider Name and Address Organization Details Last Updated DateTime 6 101 /min 81978.5 503 g 167.64 cm 30.7 kg/m2 143 mm[Hg] 82 mm[Hg] Charo Felton [facility] 6 17:36:23 Date Recorded Systolic blood pressure Diastolic blood pressure Systolic blood pressure Diastolic blood pressure Provider Name and Address Organization Details Last Updated DateTime 09/13/2015 130 mm[Hg] 89 mm[Hg] 130 mm[Hg] 88 mm[Hg] Mally Flores [facility] 6 17:56:44 Date Recorded Body height Body weight Body mass index (BMI) Body temperature Oxygen saturation Oxygen saturation in Arterial blood by Pulse oximetry Systolic blood pressure Diastolic blood pressure Provider Name and Address Organization Details Last Updated DateTime 7 167.64 cm 03008.3 7 g 30.3 kg/m2 99.2 [degF] 99 % 99 % 150 mm[Hg] 97 mm[Hg] Charo Felton [facility] 7 13:06:20 Social History Question Answer Notes LastModified by Organizat ion Details LastModified Time Tobacco Smoking Status Current Every Day Smoker Not Available [facility] 02/09/2020 03:13:59 Do You Have An Advance Directive? No [id number] Information not available 02/09/2020 What Is Your Level Of Alcohol Consumption? Occasional [id number] Information not available 02/09/2020 What Is Your Level Of Caffeine Consumption? Moderate [id number] Information not available 02/09/2020 What Type Of Diet Are You Following? 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 No [id number] Information not available 02/09/2020 Hard Of Hearing Or Deaf In One Or Both Ears? No [email or web address] Information not available 12/14/2014 Legally Blind In One Or Both Eyes? No Information not available 12/14/2014 Marital Status Single [email or web address] Informatio n not available 12/14/2014 Performs Monthly Self-breast Exam? No [email or web address] Information not available 12/14/2014 Seat Belts Used Routinely Yes [email or web address] Information not available 12/14/2014 Smoke Alarm In Home Yes [email or web address] Information not available 12/14/2014 At What Age Did You Start Smoking Tobacco? 13 [id number] Information not available 02/09/2020 How Much Tobacco Do You Smoke? 0.5 PPD [id number] Information not available 02/09/2020 Do You Use Sunscreen Routinely? No [id number] Information not available 02/09/2020 How Many Years Have You Smoked Tobacco? 31 [id number] Information not available 02/09/2020 Sex: Unknown Functional Status Question Answer Note LastModified by Organization D etails LastModified Time What is your exercise level? Moderate [id number] Information not available 02/09/2020 Mental Status None recorded. Family History Relationship Description Onset Age of this Age Resolved Age Notes LastModified by Organization Details LastModified Time Father Family history of malignant neoplasm 58 [email or web address] Not available 2015 17:46:39 Mother Heart disease 74 [email or web address] Not available 2015 17:46:39 Medical History Condition Response Coronary Artery Disease N Gout N Kidney Stones N Blood Diseases N Hyperthyroidism N Hypothyroidism N COPD N Depression N Developmental or Behavioral Disorders N Eczema, [...] preservative free, adsorbed 5 completed Not Available [facility] 05/09/2019 02:10:23 Past Encounters Encounter ID Performer Location Encounter Start Date Encounter Closed Date Diagnosis/Indication Diagnosis SNOMED-CT Code Diagnosis ICD10 Code Diagnosis Note [id number] Nguyen [facility] [address] [place] [address],[address] [address] 12/14/2014 13:54:06 12/20/2014 14:17:02 Adult health examination 335985109 Overall benign exam; we discussed BMI, healthy diet; advised to stop smoking; increase exercise; avoid drugs, limit alcohol; discussed STD prevention . Refused Flu shot Labs: cbc, cmp, fasting lipids, TSH, HIV, urine GC, HEP C Elevated blood-pressure reading without diagnosis of hypertension 111567723 Recheck in 4 weeks Headache 70977714 Unrema rkab le neurologic al exam; normal head CT on 11/28/14 A s requested, referred to neurologis t Refilled Fioricet Administra tion of tetanus vaccine 763590344 Td today [id number] Mally [place] [address] [address] 01/14/2015 15:50:43 01/25/2015 14:26:13 Benign essential hypertension 6928392 I10 BP 154/101 We discussed labs Prescribed amlodipine 5mg; discussed possible side effects F/U in 4 weeks to recheck Mixed hyperlipidemia 267 380751 E78.2 Fasting lipids on 12/25/2014 LDL 145, total cholestero l 205; HDL 39 10 year risk factors for heart disease or stroke is 10.8%. On base of the patient's risk factors of smoking and HTN, the ACC/AHA guidelines recommend to start moderate to intense stain treatment. The patient prefers to wait until next visit to discuss. Advised to start lifestyle modificati on. [id number] [address] [address] 02/18/2015 15:53:38 02/25/2015 17:07:04 Benign essential hypertension 5703710 I10 BP 44/70 Increased amlodipine to 10mg daily Recheck in 3 months Constipation 79594193 K5 9.00 Diet and bowel regimen discussed with patient. Will try strick adherence to bowel regimes; f/u here in 4 weeks Consider referral to GI for colonoscop y if s/s do not improve. Internal hemorrhoids 902 45932 K64.8 Rectal cream prescribed [id number] Mally [place] [address] [address] 03/08/2015 15:37:55 03/10/2015 14:09:10 Constipation 87112576 K59.00 Diet and bowel regimen discussed with patient. Continue to maintain strick adherence to bowel regimen Consider referral to GI for colonoscop y if s/s do not improve. [id number] Mally [facility] [address] [place] [address],[address] [place] [address] 06/07/2015 17:33:06 06/08/2015 17:46:50 Benign essential hypertension 2495248 I10 Goal BP <140/90 BP this visit - 130/80 No complaints of hypo/hyper tension noted other than blurry vision in the AM. Eye exam unremarkab le. Will refer to opthomolog ist. Recheck in [address] for blurry vision Mass of neck 756418986 R 22.1 Pt noted to have a 3lli4qi mass on the right posterior of neck. He reports it has been increasing in size over the past 9months. Pt reports pressure but no pain. Has full ROM and no other symptoms associated with mass. Sent for Ultrasound of neck Will refer to dermatolog y or surgeon depending on U/S results [id number] Mally [facility] [address] [place] [address] 09/13/2015 17:04:01 09/14/2015 16:32:14 Benign essential hypertension 5333100 I10 Goal BP <140/90 BP this visit - 138/80 No complaints of hypo/hyper tension noted other than blurry vision in the AM. Eye exam unremarkab le. Will refer to opthomolog ist. Recheck in [address] for blurry vision Mass of neck 579470807 R 22.1 Pt noted to have a 1vgb0nq mass on the right posterior of neck. He reports it has been increasing in size over the past 9months. Pt reports pressure but no pain. Has full ROM and no other symptoms associated with mass. Ultrasound of neck, possible lipoma Will refer to surgeon Tanya hogan of upper limb 77217111 R20.2 Not a clear etiology, cervical and [...] to neurologis cindy hogan of lower extremity 591382690 R20.2 Will f/u after labs and EMG Gastroesop hageal reflux disease 776641412 K21.9 Continue Zantac since it works for patient. [id number] yael silvestre [facility] [address] [facility],[address] [place] [address] 08/20/2016 13:01:41 08/21/2016 13:50:02 Lumbar radiculopathy 871185390 M54.16 Unchanged. Reviewed EMR from [facility]. Dates: Pt visited center in 2 different occasions on 08/12/2016 and 08/16/2016 : Reviewed hx, plan, meds.Tried multiple meds w/no relief: Percocet 5mg/325 mg 1 tab po q6h #15 Prednisone 20 mg take 3 tablets for 3 days. Flexeril 5 mg po daily #15 [place] 5 mg/325 mg 2 tablets po q4h #25 Soma 350 MG po q6h daily #25Denies any injuries or trauma.No red flags.Will try ibuprofen. Reviewed side effects. Pt verbalized understand ing.Ordere d Xray for further evaluation .Placed referral to ortho for further evaluation .Reviewed warning s/sxs to RT LFDs or ED. Pt verbalized understand ing.No sensory loss or motor deficit. Benign ess ential hypertension 2853638 I10 Uncontroll ed.BP today: 150/97Goal <130/80.Cu rrently taking amlodipine 10 mg PO Daily. Denies any side effects.Wi ll f/u in 1 week.Last creatinine on 09/16/2015 : 0.90Last K+ on 09/16/2015 : 4.2 Obesity 734287474 E66.9 BMI: 30.3Recomm end weight loss, healthy [...] [facility]LES - LEONO - OPEN ACCESS PLUS [id number] Chase Chavarria [id number] 1 [id number] Chase Chavarria 03/08/2015 1 [employer] - SODEXO - OPEN ACCESS PLUS [id number] Chase Chavarria [id number] 1 [id number] Chase Chavarria 06/07/2015 1 [employer] - SODEXO - OPEN ACCESS PLUS [id number] Chase Chavarria [id number] 1 [id number] Chase Chavarria 09/13/2015 1 [employer] - SODEXO - OPEN ACCESS PLUS [id number] Chase Chavarria [id number] Chase Chavarria 08/20/2016 1 [employer] - SODEXO - OPEN ACCESS PLUS [id number] Chase Chavarria [id number] Chase Chavarria Notes Date Note Type Note [...] of the neck. Not painful KRISHAN Estrada [facility] 09/14/2015 08:15:56 7 text/html Back PainReported bypatient.Location:pain radiating to the legs Quality:sharp Severity:pain level 8/10;moderate (5-7) Duration:acute Onset/Timing:recurrent episode; 2weeks ago Context:used medications for back pain Aggravating Factors:movement/position ing;twisting;flexing back;extending back Associated Symptoms:no fever; no weak limbs; no tingling; no incontinence; no shortness of breath 46 y/o new patient to myself here for ED-follow up for low back pain.Location: [facility].Dates: Pt visited center in 2 occasions on 08/12/2016 and 08/16/2016. New meds: Percocet 5mg/325 mg 1 tab po q6h #15Prednisone 20 mg take 3 tablets for 3 days.Flexeril 5 mg po daily #15 - [place] 5 mg/325 mg 2 tablets po q4h [...] calf pain. yael ibarra [place] [facility] 08/20/2016 13:42:45
== END 2024-06-25 12:33 | disposition home or self-care (01) ==
LOC: HO.NEURO 12:32
PROVIDERS: PCP Internal Medicine
DX: R20.0 Anesthesia of skin (principal)
CPT/HCPCS: 95886; 95909

== ENCOUNTER → 2024-06-25 12:36 | Outpatient (BNV) | payer OTHER, SELFPAY | PROVIDERS: PCP Internal Medicine; Visit Provider Physical Medicine & Rehabilitation | DX: R20.0 Anesthesia of skin (principal); R20.2 Paresthesia of skin; M54.59 Other low back pain | CPT/HCPCS: 95886; 95909 ==

== ENCOUNTER 2024-07-17 15:45 | Outpatient (AMB) | payer OTHER, SELFPAY ==
--- OUTSIDE RECORDS SUMMARY | 2024-07-17 15:48 | XMS_ITS | Data Portability ---
Author Organization [place] - [facility], [facility] Address [address] [place] [address] Assessment No assessment recorded. Plan of Treatment Reminders Order Date Submit Date Provider Last Modified By Organization Details Last Modified Time Details Appointments None recorded. Lab None recorded. Referral orthopedic referral 2016 017 [email or web address] [facility], [address], [place], [address], 7 15:50:53 general surgeon referral 2015 016 [email or web address] Not available 6 19:44:45 electromyo gram referral - EMG of upper and lower extremitie s; patient with c/o tingling on arms, hands, legs and feet 2015 016 [email or web address] Not available 6 15:18:25 ophthalmol ogist referral - htn and blurry vision in the AM 2015 016 [facility], [address] [place], [address], 6 17:46:50 Procedures None recorded. Surgeries None recorded. Imaging None recorded. Medication Orders ibuprofen 800 mg tablet 2016 017 INTERFACE [facility] #[id number], [address], [place], [id number], 7 13:32:04 Zantac 300 mg tablet 2015 016 [email or web address] [facility] #[id number], [address], [place], [id number], 6 08:15:05 Proctosol HC 2.5 % rectal cream with applicator 2014 [email or web address] [facility] #[id number], [address], [place], [id number], 7 13:24:11 Daily Fiber (psyllium- sucrose) 3.4 gram/12 gram oral powder [email or web address] [id number], [address] [place], [place], [id number], 5 11:26:53 amlodipine 10 mg tablet 2014 [email or web address] [employer] [facility] [facility][id number], [address], [place], [id number], 5 11:26:53 Patient TargetsNo targets recorded. Patient Instructions Encounter Date Encounter Id Patient Instructions Last Modified By Organization Details Last Modified Time 03/08/2015 [id number] estre? ? ?imiento: instrucciones de cuidado - [constipation: care instructions] [email or web address] Not available 03/13/2015 17:41:34 06/07/2015 [id number] aprenda sobre la presi? ? ?n arterial esvin - [learning about high blood pressure] npadua Not available 06/07/2015 19:21:13 presi? ? ?n arterial esvin: instrucciones de cuidado - [high blood pressure: care instructions] npadua Not available 06/07/2015 19:21:13 09/13/2015 [id number] enfermedad de reflujo gastroesof? ? ?gico (GERD): instrucciones de cuidado - [gastroesophageal reflux disease (GERD): care instructions] npadua Not available 09/14/2015 08:15:05 aprenda sobre la presi? ? ?n arterial esvin - [learning about high blood pressure] npadua Not available 09/14/2015 08:15:04 presi? ? 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 kosovan 104 mL/mi n/1.7 3m2 > or = 60 normal Not Available [facility] [place] [facility] [address], [address], 09/17/2015 03:11:38 09/16/19 16 09/17/2015 CMP, serum or plasm a eGFR 120 mL/mi n/1.7 3m2 > or = 60 normal Not Available [facility] [place] [facility] [address], [address], 09/17/2015 03:11:38 09/16/19 16 09/17/2015 CMP, serum or plasm a BUN/creatini ne ratio NOT APPLIC ABLE (calc ) 6-22 Not Available [facility] [address], [place], [address], 09/17/2015 03:11:38 09/16/19 16 09/17/2015 CMP, serum or plasm a sodium 140 mmol/ L 135-14 6 normal Not Available [facility] [address], [place], [address], 09/17/2015 03:11:38 09/16/19 16 09/17/2015 CMP, serum or plasm a potassium 4.2 mmol/ L 3.5-5. 3 normal Not Available [facility] [address], [address], 09/17/2015 03:11:38 09/16/19 16 09/17/2015 CMP, serum or plasm a chloride 108 mmol/ L 98-110 normal Not Available [facility] [address], [place], [address], 09/17/2015 03:11:38 09/16/19 16 09/17/2015 CMP, serum or plasm a carbon dioxide 22 mmol/ L 19-30 normal Not Available [facility] [address] [place], [place], [address], 09/17/2015 03:11:38 09/16/19 16 09/17/2015 CMP, serum or plasm a calcium 9.1 mg/dL 8.6-10 .3 normal Not Available [facility] [place] [facility] [address] [place], [place], [address], 09/17/2015 03:11:38 09/16/19 16 09/17/2015 CMP, serum or plasm a protein, total 7.3 g/dL 6.1-8. 1 normal Not Available [facility] [address] [place], [place], [address], 09/17/2015 03:11:38 09/16/19 16 09/17/2015 CMP, serum or plasm a albumin 4.5 g/dL 3.6-5. 1 normal Not Available [facility] [place] [facility] [address] [place], [place], [address], 09/17/2015 03:11:38 09/16/19 16 09/17/2015 CMP, serum or plasm a globulin 2.8 g/dL_ (calc ) 1.9-3. 7 normal Not Available [facility] [address], [place], [address], 09/17/2015 03:11:38 09/16/19 16 09/17/2015 CMP, serum or plasm a albumin/glob ulin ratio 1.6 (calc ) 1.0-2. 5 normal Not Available [facility] [place] [facility] [address], [place], [address], 09/17/2015 03:11:38 09/16/19 16 09/17/2015 CMP, serum or plasm a bilirubin, total 0.3 mg/dL 0.2-1. 2 normal Not Available [facility] [place] [facility] [address] [place], [address], 09/17/2015 03:11:38 09/16/19 16 09/17/2015 CMP, serum or plasm a alkaline phosphatase 95 U/L 40-115 normal Not Available [facility] [place] [facility] [address] [place], [place], [address], 09/17/2015 03:11:38 09/16/19 16 09/17/2015 CMP, serum or plasm a AST 16 U/L 10-40 normal Not Available [facility] [address] [place], [place], [address], 09/17/2015 03:11:38 09/16/19 16 09/17/2015 CMP, serum or plasm a ALT 26 U/L 9-46 normal Not Available [facility] [address] [place], [place], [address], 09/17/2015 03:11:38 09/16/19 16 09/17/2015 folat e, serum folate, serum 19.3 NG/mL normal Refer ence Range Low: <3.4 Borde rline : 3.4-5 .4 Shante l: >5.4 Not Available [facility] [address] [place], [place], [address], 09/17/2015 03:11:38 09/16/19 16 09/17/2015 T4, free, serum T4, free 1.1 NG/dL 0.8-1. 8 normal Not Available [facility] [address] [place], [place], [address], 09/17/2015 03:11:39 09/16/19 16 09/17/2015 TSH, serum or plasm a TSH 1.22 mIU/L 0.40-4 .50 normal Not Available [facility] [address] [place], [place], [address], 09/17/2015 03:11:39 09/16/19 16 09/17/2015 vitam in B12, serum vitamin B12 432 pg/mL 200-11 00 normal Not Available [facility] [place] [facility] [address] [place], [place], [address], 09/17/2015 03:11:39 06/23/19 16 06/23/2015 ultra sound , neck No observ ation record ed. [email or web address] [facility] (Radiology) [address] [place], [address], 09/14/2015 08:04:56 10/06/19 16 10/06/2015 echoc ardio gram No observ ation record ed. [facility] [address] [address], [place], [address], 10/11/2015 14:11:43 Result Notes None recorded. Problems Name Problem SNOMED Code Status Onset Date Resolution Date Notes Provider Name and Address Organization Details Recorded Time Tobacco dependence syndrome 57951745 Active 1982 smokes 1 pack every 2 days. Mally ibarra [facility] 6 17:46:36 Elevated blood-pres sure reading without diagnosis of hypertensi on 335453659 Active Mally ibarra [facility] 6 17:46:36 Headache 19113730 Completed 08/20/2016 yael ibarra [facility] 7 13:36:32 Benign essential hypertensi on 8019924 Active Mally ibarra [facility] 6 08:15:04 Mixed hyperlipid emia 904742596 Active Mally ibarra [facility] 6 17:46:36 Constipati on 73855762 Completed 08/20/2016 yael ibarra [facility] 7 13:36:28 Internal hemorrhoid s 97517524 Active Mally ibarra [facility] 6 17:46:36 Mass of neck 718991349 Active [facility] 6 08:15:04 Paresthesi a of upper limb 78407642 Active [facility] 6 08:15:04 Paresthesi a of lower extremity 572238378 [facility] 6 08:15:04 Gastroesop hageal reflux disease 315689329 [facility] 6 08:15:04 Problem Notes None recorded. Procedures Surgical History Date Name Laterality Status Provider Name and Address Organization Details Recorded Time Appendectomy completed Charo Felton [facility] 12/14/2014 14:24:01 Imaging Results Imaging Date Name Status LastModified by Organization Details LastModified Time 06/23/2015 ultrasound, neck completed [email or web address] [facility] (Radiology) [address] [place], [address], 09/14/2015 08:04:56 10/06/2015 echocardiogram completed [email or web address] [facility] [address], [address], 10/11/2015 14:11:43 Procedure Notes None recorded. Medical [...] Updated DateTime 5 167.64 cm 102 /min 21569.4 8001 g 27.9 kg/m2 144 mm[Hg] 90 mm[Hg] Charo Felton [facility] 5 16:02:19 Date Recorded Body weight Body height Body mass index (BMI) Heart rate Systolic blood pressure Diastolic blood pressure Provider Name and Address Organization Details Last Updated DateTime 5 80442.2 9527 g 167.64 cm 27.6 kg/m2 90 /min 135 mm[Hg] 86 mm[Hg] Charo Felton [facility] 5 16:40:59 Date Recorded Body weight Body mass index (BMI) Body height Heart rate Systolic blood pressure Diastolic blood pressure Provider Name and Address Organization Details Last Updated DateTime 6 07461.0 3423 g 28.9 kg/m2 167.64 cm 103 /min 130 mm[Hg] 80 mm[Hg] Charo Felton [place] [facility] 6 17:40:33 Date Recorded Heart rate Body weight Body height Body mass index (BMI) Systolic blood pressure Diastolic blood pressure Provider Name and Address Organization Details Last Updated DateTime 6 101 /min 07851.5 503 g 167.64 cm 30.7 kg/m2 143 mm[Hg] 82 mm[Hg] Charo Felton [facility] 6 17:36:23 Date Recorded Systolic blood pressure Diastolic blood pressure Systolic blood pressure Diastolic blood pressure Provider Name and Address Organization Details Last Updated DateTime 09/13/2015 130 mm[Hg] 89 mm[Hg] 130 mm[Hg] 88 mm[Hg] Mally Flores [facility] 6 17:56:44 Date Recorded Body height Body weight Body mass index (BMI) Body temperature Oxygen saturation Oxygen saturation in Arterial blood by Pulse oximetry Systolic blood pressure Diastolic blood pressure Provider Name and Address Organization Details Last Updated DateTime 7 167.64 cm 82064.3 7 g 30.3 kg/m2 99.2 [degF] 99 % 99 % 150 mm[Hg] 97 mm[Hg] Charo Felton [facility] 7 13:06:20 Social History Question Answer Notes LastModified by Organizat ion Details LastModified Time Tobacco Smoking Status Current Every Day Smoker Not Available [facility] 02/09/2020 03:13:59 Do You Have An Advance Directive? No [id number] Information not available 02/09/2020 What Is Your Level Of Alcohol Consumption? Occasional [id number] Information not available 02/09/2020 What Is Your Level Of Caffeine Consumption? Moderate [id number] Information not available 02/09/2020 What Type Of Diet Are You Following? 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 No [id number] Information not available 02/09/2020 Hard Of Hearing Or Deaf In One Or Both Ears? No [email or web address] Information not available 12/14/2014 Legally Blind In One Or Both Eyes? No [email or web address] Information not available 12/14/2014 Marital Status Single Informatio n not available 12/14/2014 Performs Monthly Self-breast Exam? No [email or web address] Information not available 12/14/2014 Seat Belts Used Routinely Yes Information not available 12/14/2014 Smoke Alarm In Home Yes [email or web address] Information not available 12/14/2014 At What Age Did You Start Smoking Tobacco? 13 [id number] Information not available 02/09/2020 How Much Tobacco Do You Smoke? 0.5 PPD [id number] Information not available 02/09/2020 Do You Use Sunscreen Routinely? No [id number] Information not available 02/09/2020 How Many Years Have You Smoked Tobacco? 31 [id number] Information not available 02/09/2020 Sex: Unknown Functional Status Question Answer Note LastModified by Organization D etails LastModified Time What is your exercise level? Moderate [id number] Information not available 02/09/2020 Mental Status None [...] preservative free, adsorbed 5 completed Not Available [facility] 05/09/2019 02:10:23 Past Encounters Encounter ID Performer Location Encounter Start Date Encounter Closed Date Diagnosis/Indication Diagnosis SNOMED-CT Code Diagnosis ICD10 Code Diagnosis Note [id number] Nguyen [facility] [address] [place] [address],[address] [address] 12/14/2014 13:54:06 12/20/2014 14:17:02 Adult health examination 899564104 Overall benign exam; we discussed BMI, healthy diet; advised to stop smoking; increase exercise; avoid drugs, limit alcohol; discussed STD prevention . Refused Flu shot Labs: cbc, cmp, fasting lipids, TSH, HIV, urine GC, HEP C Elevated blood-pressure reading without diagnosis of hypertension 569656160 Recheck in 4 weeks Headache 66573294 Unrema rkab le neurologic al exam; normal head CT on 11/28/14 A s requested, referred to neurologis t Refilled Fioricet Administra tion of tetanus vaccine 760400042 Td today [id number] Mally Flores [address] [address] 01/14/2015 15:50:43 01/25/2015 14:26:13 Benign essential hypertension 2285889 I10 BP 154/101 We discussed labs Prescribed amlodipine 5mg; discussed possible side effects F/U in 4 weeks to recheck Mixed hyperlipidemia 267 548211 E78.2 Fasting lipids on 12/25/2014 LDL 145, total cholestero l 205; HDL 39 10 year risk factors for heart disease or stroke is 10.8%. On base of the patient's risk factors of smoking and HTN, the ACC/AHA guidelines recommend to start moderate to intense stain treatment. The patient prefers to wait until next visit to discuss. Advised to start lifestyle modificati on. [id number] [address] [address] 02/18/2015 15:53:38 02/25/2015 17:07:04 Benign essential hypertension 4782191 I10 BP 44/70 Increased amlodipine to 10mg daily Recheck in 3 months Constipation 40030208 K5 9.00 Diet and bowel regimen discussed with patient. Will try strick adherence to bowel regimes; f/u here in 4 weeks Consider referral to GI for colonoscop y if s/s do not improve. Internal hemorrhoids 909 [address]9743 K64.8 Rectal cream prescribed [id number] Mally Flores [address] [address] 03/08/2015 15:37:55 03/10/2015 14:09:10 Constipation 11663339 K59.00 Diet and bowel regimen discussed with patient. Continue to maintain strick adherence to bowel regimen Consider referral to GI for colonoscop y if s/s do not improve. [id number] Mally [facility] [address] [place] [address],[address] [place] [address] 06/07/2015 17:33:06 06/08/2015 17:46:50 Benign essential hypertension 5926512 I10 Goal BP <140/90 BP this visit - 130/80 No complaints of hypo/hyper tension noted other than blurry vision in the AM. Eye exam unremarkab le. Will refer to opthomolog ist. Recheck in [address] for blurry vision Mass of neck 041563575 R 22.1 Pt noted to have a 6qcy8hp mass on the right posterior of neck. He reports it has been increasing in size over the past 9months. Pt reports pressure but no pain. Has full ROM and no other symptoms associated with mass. Sent for Ultrasound of neck Will refer to dermatolog y or surgeon depending on U/S results [id number] Mally [facility] [address] [place] [address] 09/13/2015 17:04:01 09/14/2015 16:32:14 Benign essential hypertension 1231929 I10 Goal BP <140/90 BP this visit - 138/80 No complaints of hypo/hyper tension noted other than blurry vision in the AM. Eye exam unremarkab le. Will refer to opthomolog ist. Recheck in [address] for blurry vision Mass of neck 299279485 R 22.1 Pt noted to have a 7wqz8zs mass on the right posterior of neck. He reports it has been increasing in size over the past 9months. Pt reports pressure but no pain. Has full ROM and no other symptoms associated with mass. Ultrasound of neck, possible lipoma Will refer to surgeon Tanya hogan of upper limb 26305911 R20.2 Not a clear etiology, cervical and [...] to neurologis cindy hogan of lower extremity 548826555 R20.2 Will f/u after labs and EMG Gastroesop hageal reflux disease 870923063 K21.9 Continue Zantac since it works for patient. [id number] yael silvestre [facility] [address] [place] [address] 08/20/2016 13:01:41 08/21/2016 13:50:02 Lumbar radiculopathy 630426570 M54.16 Unchanged. Reviewed EMR from [facility]. Dates: Pt visited center in 2 different occasions on 08/12/2016 and 08/16/2016 : Reviewed hx, plan, meds.Tried multiple meds w/no relief: Percocet 5mg/325 mg 1 tab po q6h #15 Prednisone 20 mg take 3 tablets for 3 days. Flexeril 5 mg po daily #15 Crosslake 5 mg/325 mg 2 tablets po q4h #25 Soma 350 MG po q6h daily #25Denies any injuries or trauma.No red flags.Will try ibuprofen. Reviewed side effects. Pt verbalized understand ing.Ordere d Xray for further evaluation .Placed referral to ortho for further evaluation .Reviewed warning s/sxs to RT LFDs or ED. Pt verbalized understand ing.No sensory loss or motor deficit. Benign ess ential hypertension 1950474 I10 Uncontroll ed.BP today: 150/97Goal <130/80.Cu rrently taking amlodipine 10 mg PO Daily. Denies any side effects.Wi ll f/u in 1 week.Last creatinine on 09/16/2015 : 0.90Last K+ on 09/16/2015 : 4.2 Obesity 159005673 E66.9 BMI: 30.3Recomm end weight loss, healthy [...] CHARLES - LEONO - OPEN ACCESS PLUS [id number] Chase Chavarria [id number] Chase Chavarria 03/08/2015 1 [employer] - SODEXO - OPEN ACCESS PLUS [id number] Chase Chavarria [id number] 1 [id number] Chase Chavarria 06/07/2015 1 [employer] - SODEXO - OPEN ACCESS PLUS [id number] Chase Chavarria [id number] Chase Chavarria 09/13/2015 1 [employer] - SODEXO - OPEN ACCESS PLUS [id number] Chase Chavarria [id number] 1 [id number] Chase Chavarria 08/20/2016 1 [employer] - SODEXO - OPEN ACCESS PLUS [id number] Chase Chavarria [id number] Chase Chavarria Notes Date Note Type Note [...] of the neck. Not painful KRISHAN Estrada [facility] 09/14/2015 08:15:56 7 text/html Back PainReported bypatient.Location:pain radiating to the legs Quality:sharp Severity:pain level 8/10;moderate (5-7) Duration:acute Onset/Timing:recurrent episode; 2weeks ago Context:used medications for back pain Aggravating Factors:movement/position ing;twisting;flexing back;extending back Associated Symptoms:no fever; no weak limbs; no tingling; no incontinence; no shortness of breath 46 y/o new patient to myself here for ED-follow up for low back pain.Location: [facility].Dates: Pt visited center in 2 occasions on 08/12/2016 and 08/16/2016. New meds: Percocet 5mg/325 mg 1 tab po q6h #15Prednisone 20 mg take 3 tablets for 3 days.Flexeril 5 mg po daily #15 - Crosslake 5 mg/325 mg 2 tablets po q4h [...] calf pain. yael ibarra [place] [facility] 08/20/2016 13:42:45
[2024-07-17 15:57] VITALS: BP 142/78; PULSE 83; RESP 20; TEMP 36.5; O2SAT 97; BMI 34.6
--- NOTE | 2024-07-17 15:57 | A.OFFPC_ITS ---
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 Accompanied by: Self / Same As Patient Allergies No Known Allergies [No Known Allergies*] Allergy (Verified 07/18/24 15:08) Medication List - Last Reconciled 07/18/24 by MIN Weir amlodipine 10 mg PO DAILY gabapentin 100 mg PO TID ibuprofen 200 mg PO Q6H PRN lisinopril 5 mg PO DAILY methylcellulose (laxative) (Citrucel) 500 mg PO TID pantoprazole 40 mg PO DAILY simethicone (Gas Relief (simethicone)) 125 mg PO BID-TID PRN 30 days sucralfate 1 g PO BID PRN 4 weeks tamsulosin (Flomax) 0.4 mg PO BEDTIME tizanidine 2 mg PO TID PRN Tobacco use date assessed: 07/17/24 Dental Screening Dental Screen Date: 07/17/24 Did you have a dental visit in the last 12 months?: Yes Did you have a dental problem in the last 6 months where you did not have access to dental care?: No Was dental information given to patient?: Patient has dentist HPI b/l leg numbness HPI Details The patient is a 54-year-old male with significant past medical history of essential hypertension, GERD, tendinitis of right rotator cuff status post injection Patient is presenting today with ongoing complaints of numbness and tingling in bilateral lower legs Patient reports that at times he has stopped and sit down at work because he feels like he is off balance He reports that the sensation is not always there, but happens more frequently while he is at work walking around The patient reports that an EMG was done and came back negative. Patient reports that he is presenting today primarily because he also started having the same sensation from his right antecubital down to his thumb and 1st finger on the right hand. This started a week ago. There is no focal deficits, no weakness or pain or other neurological deficits Patient denies any shortness of breath, chest pain, heart palpitation or dizziness REPLACED BY [facility] Medical History Low back pain Colon cancer screening Hypercholesterolemia Osteoarthritis of lumbar spine Tobacco use disorder Obesity (BMI 30-39.9) GERD without esophagitis Essential (primary) hypertension History of pilonidal cyst Surgical History History of incision and drainage History of appendectomy Family History Mother Myocardial infarction CVD (cardiovascular disease) Father Stomach cancer Son In good health Daughter In good health Daughter In good health Daughter In good health Social History Housing: Apartment Alcohol intake: current Alcohol intake frequency: holidays/special occasions only Comment: 2x a month5 -6 drinks Patient Tobacco Use Status: Current everyday Tobacco user Tobacco use type: Cigarette Cigarettes Per Day: 4 Years Smoked: 40- 6 cigarettes a day e-Cigarette/Vaping Use: Never Used Second Hand Smoke Exposure: No service: No Current occupational status: employed 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 1. Little interest or pleasure in doing things: not at all 2. Feeling down, depressed, or hopeless: not at all 3. Trouble falling or staying asleep, or sleeping too much: several days 4. Feeling tired or having little energy: not at all 5. Poor appetite or overeating: not at all 6. Feeling bad about yourself - or that you are a failure or have let yourself or your family down: not at all 7. Trouble concentrating on things, such as reading the newspaper or watching television: not at all 8. Moving or speaking so slowly that other people could have noticed. Or the opposite - being so fidgety or restless that you have been moving around a lot more than usual: not at all 9. Thoughts that you would be better off or of hurting yourself in some way: not at all Total score: 1 Depression Screening Interpretation: Negative Depression Screening Done: Yes Source: Developed by Drs. Roger Nava, Gregoria Foster, Broderick Araujo and colleagues, with an educational mayi from [employer]. Thrive Questionnaire Date Thrive assessed: 07/17/24 I am a: Patient What is your living situation today?: I have a steady place to live Within the past 12 months, did the food you bought not last and you didn't have the money to get more?: Never true Within the past 12 months, did you worry whether your food would run out before you got money to buy more?: Never true Do you have trouble paying for medicines?: No Do you have trouble getting transportation to medical appointments?: No Do you have trouble paying your heating and electricity bill?: No Do you have trouble taking care of your child, family member or friend?: No Do you have trouble with day-to-day activities such as bathing, preparing meals, shopping, managing finances, etc.?: No Are you currently unemployed and looking for a job?: No Are you interested in more education?: No Please select the resources that you would like help with: None Currently or been in a relationship where the following occur: No concerns reported THRIVE Score: 0 AUDIT C Alcohol Use Questionnaire (AUDIT-C) 1. How often do you have a drink containing alcohol?: Monthly or less 2. How many drinks containing alcohol do you have on a typical day when you are drinking?: 1 or 2 3. How often do you have six or more drinks on one occasion?: Monthly Total Score: 3 Score Reviewed/Action Taken: No SUSANNAH-7 AMB Questionnaire SUSANNAH-7 Date SUSANNAH - 7 assessed: 07/17/24 Feeling nervous, anxious, or on edge: 0 = Not at all Not being able to stop or control worryin = Not at all Worrying too much about different things: 0 = Not at all Trouble relaxin = Not at all Being so restless that it is hard to sit still: 0 = Not at all Becoming easily annoyed or irritable: 0 = Not at all Feeling afraid as if something awful might happen: 0 = Not at all Total SUSANNAH-7 score (0-4 normal; 5-9 mild; 10-14 moderate; 15-21 severe): 0 Source: Developed by Drs. Roger Nava, Gregoria Foster, Broderick Araujo and colleagues, with an educational mayi from [employer]. Review of Systems Const Denies headache(s) Eyes Denies loss of vision ENT Denies vertigo, Denies dizziness and Denies headache(s) Card Denies chest pain, Denies leg edema and Denies lightheadedness Resp Denies cough and Denies hemoptysis Musc Denies arthralgias, Denies joint swelling, Reports numbness (Bilateral lower extremity and right AC down to thumb and 1st finger) and Reports tingling (Bilateral lower extremity and right AC down to thumb and 1st finger) Neuro Denies Abnormal speech present, Denies vertigo, Denies dizziness, Denies headache(s), Denies loss of vision, Reports numbness (Bilateral lower extremity and right AC down to thumb and 1st finger) and Reports tingling (Bilateral lower extremity and right AC down to thumb and 1st finger) Physical exam (Primary Care) Vital Signs: Last Vital Signs Temp 97.7 F 07/17/24 15:57 Pulse 83 07/17/24 15:57 Resp 20 07/17/24 15:57 BP 142/78 H 07/17/24 15:57 Pulse Ox 97 07/17/24 15:57 Oxygen Delivery Method Room Air 07/17/24 15:57 BMI result Body Mass Index 34.6 Tobacco/Smoking Status: Tobacco use Status Tobacco use date assessed 07/17/24 07/17/24 16:07 Patient Tobacco Use Status Current everyday Tobacco 07/17/24 16:07 Tobacco use type Cigarette 07/17/24 16:07 e-Cigarette/Vaping Use Never Used 07/17/24 16:07 PHQ-9: PHQ-9 Score PHQ-9: Total score 1 07/17/24 16:39 Depression Screening Interpretation: Negative Thrive Assessment: Date of Thrive Assessment Date Thrive assessed 07/17/24 07/17/24 16:07 Currently or been in a relationship where the following occur: No concerns reported Const General: healthy appearing, no acute distress, alert and awake Nutritional Appearance: well nourished Orientation/consciousness: oriented to person, oriented to place and oriented to time HENMT Ears: external ears normal General nose exam: Normal external nose present Eyes Conjunctivae: conjunctivae normal Sclerae: sclerae normal Pupils: Equal, round and reactive pupils present Neck Neck: Yes no lymphadenopathy and Yes no JVD Thyroid: Thyroid normal Carotids: no bruits Resp Effort & Inspection: normal respiratory effort and not tachypneic Auscultation: no crackles, no rales, no rhonchi and no wheezes Cardio Rate: regular rate Rhythm: regular rhythm Heart sounds: no murmurs and normal S1 and S2 Neuro General: oriented to person, oriented to place and oriented to time Cranial nerves: Yes Equal, round and reactive pupils present Speech: No Abnormal speech present Gait exam (Neuro): Normal gait present Motor exam (neuro): no tremor noted Extrem Right upper extremity: full ROM and Extremity exam: right hand (negative phalen and tinel test) Left upper extremity: full ROM Right lower extremity: full ROM; no edema Left lower extremity: full ROM; no edema Coding Level of Care Code Est Pt Level 3 (18350) Diagnoses Lower extremity numbness R20.0 Right upper extremity numbness R20.0 Time Spent (min) 32 Assessment & Plan Assessment & Plan (1) Lower extremity numbness: Code(s): R20.0 - Anesthesia of skin Category: Medical Plan: Ongoing numbness and tingling sensation in lower extremity. Presents after ambulating EMG conducted and was negative. Discussed with the patient that this could be an early onset of neuropathy. We will try the patient on gabapentin 100 mg t.i.d. and tizanidine 2 mg t.i.d. p.r.n.. Discussed with the patient that both these medications can cause drowsiness and he should start each medication on a separate day preferably at night in case he gets tired. (2) Right upper extremity numbness: Code(s): R20.0 - Anesthesia of skin Category: Medical Plan: Negative Phalen and Tinel's test. Discussed with the patient that this could be an early onset of neuropathy. We will try the patient on gabapentin 100 mg t.i.d. and tizanidine 2 mg t.i.d. p.r.n.. Discussed with the patient that both these medications can cause drowsiness and he should start each medication on a separate day preferably at night in case he gets tired. Plan Patient to contact the office if the symptoms are not resolving or worsening Medications: New tizanidine 2 mg PO TID PRN 90 tabs 1RF muscle spasticity gabapentin 100 mg PO TID 90 caps 1RF
== END 2024-07-17 16:51 | disposition home or self-care (01) ==
LOC: HO.HMCH 15:46
PROVIDERS: PCP Internal Medicine
DX: R20.0 Anesthesia of skin (principal)

== ENCOUNTER → 2024-07-17 15:45 | Outpatient (BNVA) | payer OTHER, SELFPAY | PROVIDERS: PCP Internal Medicine ==

== ENCOUNTER 2024-10-16 10:37 | Outpatient (AMB) | payer OTHER, SELFPAY ==
--- NOTE | 2024-10-16 10:39 | A.OFFPC_ITS ---
Vital Signs 10/16/24 10:44 10/16/24 11:01 Height 5 ft 4 in Weight 200 lb 2 oz BMI 34.3 BP 132/70 Blood Pressure Location Lt brachial Position Sitting Pulse 101 H 88 Pulse Source Pulse Oximeter Auscultation Temp 97.1 F Temp Source Temporal Artery Scan Pulse Oximetry (%) 96 Oxygen Delivery Method Room Air Intake Visit Reasons: [place] [facility] cataract surgery 10/20 Intake Note: Patient is here for a Pre-op for cataracts surgery of the left eye scheduled with Dr. Roberts on 10/20/24. 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 Accompanied by: Self / Same As Patient Allergies No Known Allergies (No Known Allergies*) Allergy (Verified 10/16/24 10:49) Medication List - Last Reconciled 10/16/24 by Trae Ramsey MD amlodipine 10 mg PO DAILY gabapentin 300 mg PO BEDTIME gabapentin 100 mg orally; am and noon ibuprofen 200 mg PO Q6H PRN ketorolac 0.5% drps ophthalmic (eye) lisinopril 5 mg PO DAILY methylcellulose (laxative) (Citrucel) 500 mg PO TID moxifloxacin 0.5% drps ophthalmic (eye) pantoprazole 40 mg PO DAILY prednisolone acetate 1% drps ophthalmic (eye) simethicone (Gas Relief (simethicone)) 125 mg PO BID-TID PRN 30 days sucralfate 1 g PO BID PRN 4 weeks tamsulosin (Flomax) 0.4 mg PO BEDTIME tizanidine 2 mg PO TID PRN Tobacco use date assessed: 07/17/24 Dental Screening Dental Screen Date: 07/17/24 HPI [place] [facility] cataract surgery 10/20 HPI Details 54-year-old obese male smoker with a his tory of GERD hypertension hypercholesterolemia BPH coming in for preoperative evaluation for cataract surgery Left October 20 2024. Patient was last seen in 05/14/2024. Review of the notes patient has been follow-up with orthopedics august to 2024 diagnosis of bilateral shoulder pain consistent with subacromial impingement syndrome and cervical brachial irritability. Patient's last blood work was done in 01/09/2024 showing anemia of 13.8 and 38.8.. Electrolytes sodium potassium is normal renal function is normal blood sugar noted to be 101 cholesterol with an elevated triglyceride of 184 normal PSA mildly low vitamin B12 normal thyroid. Patient had an echocardiogram done in March 2024 showing normal studies. Patient al so had a stress test done in 02/20/[address] Armando Vargas and [facility] Medical History Low back pain Colon cancer screening Hypercholesterolemia Osteoarthritis of lumbar spine Tobacco use disorder Obesity (BMI 30-39.9) GERD without esophagitis Essential (primary) hypertension History of pilonidal cyst Surgical History History of incision and drainage History of appendectomy Family History Mother Myocardial infarction CVD (cardiovascular disease) Father Stomach cancer Son In good health Daughter In good health Daughter In good health Daughter In good health Social History (Updated 10/16/24 @ 11:06 by Trae Ramsey MD) Housing: Apartment Alcohol intake: current Alcohol intake frequency: holidays/special occasions only Comment: 2x a month5 -6 drinks Patient Tobacco Use Status: Current everyday Tobacco user Tobacco use type: Cigarette Cigarettes Per Day: 4 Years Smoked: 40- 4 cigarettes a day e-Cigarette/Vaping Use: Never Used Second Hand Smoke Exposure: No service: No Current occupational status: employed 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 Roger Nava, Gregoria Foster, Broderick Araujo and colleagues, with an educational mayi from [employer]. Review of Systems Const Denies poor appetite and Denies weakness Eyes Denies no additional complaints ENT Reports Normal hearing present, Denies dizziness, Denies nasal congestion, Denies tinnitus and Denies sore throat Card Denies chest pain, Denies syncope, Denies rapid heart rate and Denies dyspnea Resp Denies cough and Denies dyspnea GI Denies change in stool character, Reports constipation, Denies diarrhea, Denies nausea and Denies vomiting Denies dysuria and Denies urinary frequency Neuro Reports Normal hearing present, Denies confusion, Denies dizziness, Denies syncope and Denies weakness Psych Denies confusion Physical exam (Primary Care) Vital Signs: Last Vital Signs Temp 97.1 F 10/16/24 10:44 Pulse 101 H 10/16/24 10:44 BP 132/70 10/16/24 10:44 Pulse Ox 96 10/16/24 10:44 Oxygen Delivery Method Room Air 10/16/24 10:44 BMI result Body Mass Index 34.3 Tobacco/Smoking Status: Tobacco use Status Tobacco use date assessed 07/17/24 10/16/24 10:39 Patient Tobacco Use Status Current everyday Tobacco 10/16/24 10:39 Tobacco use type Cigarette 10/16/24 10:39 e-Cigarette/Vaping Use Never Used 10/16/24 10:39 Thrive Assessment: Date of Thrive Assessment Date Thrive assessed 07/17/24 10/16/24 10:39 Const General: No confusion Orientation/consciousness: No confusion HENMT Head: Yes normocephalic Ears: external ears normal and TM's normal bilaterally Face and sinus: Yes normal facial exam Mouth: moist mucous membranes Throat: Yes tonsils normal Eyes Conjunctivae: conjunctivae normal Pupils: Equal, round and reactive pupils present and Pupil accommodation reflex normal Direct Ophthalmoscopy: normal light reflex Neck Neck: No lymphadenopathy Thyroid: Thyroid normal Chest Chest palpation & inspection: normal inspection of the chest Resp Effort & Inspection: normal respiratory effort and no audible wheezes Auscultation: clear to auscultation bilaterally, no crackles, no wheezes and lung sounds not diminished Cardio Rate: regular rate Rhythm: regular rhythm Peripheral pulses: radial pulses present and dorsalis pedis present GI Palpation (GI): no masses Auscultation: normal bowel sounds and normoactive bowel sounds Rectal Exam - Male: Yes deferred Skin General skin exam: no rashes or lesions noted Rashes: no rashes Neuro General: No confusion Cranial nerves: Yes Equal, round and reactive pupils present and Yes Normal hearing present Cognition (Neuro): normal cognition Gait exam (Neuro): Normal gait present Motor exam (neuro): 5/5 motor strength present throughout Deep tendon reflexes (DTR's): Right brachioradialis reflex intensity grade: 2+, Left brachioradialis reflex intensity grade: 2+, Right patellar reflex intensity grade: 2+ and Left patellar reflex intensity grade: 2+ Extrem General: No edema Coding Level of Care Code Est Pt Level 4 (89814) Diagnoses Preop exam for internal medicine Z01.818 Cataract H26.9 Essential (primary) hypertension I10 Hypercholesterolemia E78.00 Obesity (BMI 30-39.9) E66.9 GERD without esophagitis K21.9 BPH (benign prostatic hyperplasia) N40.0 Tobacco use disorder F17.200 Assessment & Plan Assessment & Plan (1) Preop exam for internal medicine: Code(s): Z01.818 - Encounter for other preprocedural examination Category: Medical Plan: EKG and blood work requested but patient belongs to the low risk category for any cardiac complication and being that the procedure is low risk no further workup needed at this time and may proceed with the contemplated procedure. Thank you very much for letting me participate in the care of this patient. (2) Cataract: Code(s): H26.9 - Unspecified cataract Category: Medical Plan: Patient is scheduled for 10/20/2024 (3) Essential (primary) hypertension: Code(s): I10 - Essential (primary) hypertension Category: Medical Plan: Continue with blood pressure medication. Decrease salt intake and exercise on amlodipine 10 mg once a day lisinopril 5 mg once a day (4) Hypercholesterolemia: Code(s): E78.00 - Pure hypercholesterolemia, unspecified Category: Medical Plan: Avoid fried foods, chicken skin, eggs, butter margarine, pastries and meat. Be it pork or beef they have a lot of cholesterol LDL goal of less than 130 and triglyceride of less than 150 (5) Obesity (BMI 30-39.9): Code(s): E66.9 - Obesity, unspecified Category: Medical Plan: Diet and exercise (6) GERD without esophagitis: Comment: Continue PPI EGD 2022 Avoid culprits Code(s): K21.9 - Gastro-esophageal reflux disease without esophagitis Category: Medical Plan: Avoid the foods that causes that usually spicy foods, tomato products, juices, coffee, soda and foods that your sensitive to. After eating do not lie down, allow 3-4 hours before in lie down. And keep the head of bed above 30 degrees to avoid the acid from going up. (7) BPH (benign prostatic hyperplasia): Comment: Mild October 2023 Code(s): N40.0 - Benign prostatic hyperplasia without lower urinary tract symptoms Category: Medical Plan: Continue with tamsulosin (8) Tobacco use disorder: Comment: 1982 half pack per day Code(s): F17.200 - Nicotine dependence, unspecified, uncomplicated Category: Medical Plan: Patient is strongly advised to stop smoking! Orders: Orders ECG 12 lead EKG Today Trae Ramsey MD Z01.818 - Encounter for other preprocedural examination Complete Blood Count Auto Diff Today Trae Ramsey MD Z01.818 - Encounter for other preprocedural examination Reticulocyte Count Today Trae Ramsey MD Z01.818 - Encounter for other prepr ocedural examination Vitamin B12 and Folate Today Trae Ramsey MD Z01.818 - Encounter for other preprocedural examination Hemoglobin A1c Today Trae Ramsey MD Z01.818 - Encounter for other preprocedural examination Basic Metabolic Panel Today Trae Ramsey MD Z01.818 - Encounter for other preprocedural examination IRON PROFILE Today Trae Ramsey MD Z01.818 - Encounter for other preprocedural examination Medications: Changed From gabapentin 100 mg PO BID 90 caps 1RF To gabapentin 100 mg orally; am and noon Clara Cazares PA-C
[2024-10-16 10:44] VITALS: BP 132/70; PULSE 101; TEMP 36.2; O2SAT 96; BMI 34.3
[2024-10-16 11:01] VITALS: PULSE 88
--- OUTSIDE RECORDS SUMMARY | 2024-10-16 11:13 | XMS_ITS | Data Portability ---
Author Organization [place] [facility] [place] [place], [place] Medicaid MRI Address [address] [place] [address] Care Team Providers Care Net Developer Consultant Name Role Phone HUGO VALADEZ Primary Care [...] tried and failed numerous conservative treatments including [id number] anti-inflammatorie s, prescription narcotics, as well as [...] Sincerely, Kushal Sanchez PA-C Orthopedic Spine Surgery [facility] Spine [facility] [email or web address] Not available 09/06/2016 14:17:28 10/11/2016 10/11/2016 MRI:[facility]. MRI of his lumbar spine demonstrates [...] Sincerely, Kushal Sanchez PA-C Orthopedic Spine Surgery [facility] Spine [facility] [email or web address] Not available 10/11/2016 15:05:57 11/15/2016 11/15/2016 Impression/Plan: [...] Sincerely, Kushal Sanchez PA-C Orthopedic Spine Surgery [facility] Spine [facility] [email or web address] Not available 11/15/2016 15:55:05 Plan of Treatment Reminders Order Date Submit Date Provider Last Modified By Organization Details Last Modified Time Details Appointments None recorded. Lab None recorded. Referral None recorded. Procedures None recorded. Surgeries None recorded. Imaging XR, lumbosacral spine, 4 or more view 2016 017 [email or web address] In-Office Order, Internal Use Only DO Not Attach Compendium DO Not Attach Compendium, Do Not Delete/merge, [id number] 7 07:57:59 Medication Orders None recorded. Patient [...] Notes None recorded. Problems No Known Problems Medical Equipment None Reported. Allergies No known [...] Details Last Updated DateTime 09/06/2016 170.18 cm 06589.55 g 29.8 kg/m2 Alisha Huston [facility] 09/06/2016 13:29:11 Date Recorded Body height Body mass index (BMI) Body weight Provider Name and Address Organization Details Last Updated DateTime 10/11/2016 170.18 cm 29.8 kg/m2 60658.55 g Ana Luisa Spencer [facility] 10/11/2016 14:52:39 Date Recorded Body height Body mass index (BMI) Body weight Provider Name and Address Organization Details Last Updated DateTime 11/15/2016 170.18 cm 29.8 kg/m2 49220.55 g Ana Luisa Spencer [place] [facility] 11/15/2016 15:26:14 Social History Question Answer Notes LastModified by Organizat ion Details LastModified Time Tobacco Smoking Status Current Every Day Smoker Alisha Robel ibarra [place] [facility] 09/06/2016 13:29:54 Auto Related Injury? No [email or web address] Information not available 09/06/2016 What Was The Date Of Your Most Recent Tobacco Screening? 11/15/2016 Information n ot available 10/31/2018 How Much Tobacco Do You Smoke? 0.5 PPD [email or web address] Information not available 09/06/2016 Work Related Injury? No [email or web address] Information not available 09/06/2016 Sex: Unknown Functional Status Question Answer Note LastModified by Organizat ion Details LastModified Time What is your level of alcohol consumption? Occasional [email or web address] Information not available 09/06/2016 Are you currently employed? Yes [email or web address] Information not available 09/06/2016 Mental Status None recorded. Family History Relationship [...] Disease/Problems N Breathing Problems N Heart Attack ([place]) N Sexually Transmitted Diseases N Bleeding Disorder/Tendencies or Anemia N Stomach Ulcers N Diabetes N Skin Problems/Rash/Boils N Depression/Psychiatric Problems N Arthritis N Tuberculosis N Cancer N Stroke N Eye Problems N Leg or Foot Ulcers N HIV/AIDS N Chest Pain/Heart Attack/Arrhythmia N Urinary Pain/Frequency/Retention N Stomach Problems/Reflux/GERD N Hepatitis N Rheumatoid Arthritis N Hypertension/High Blood Pressure N Osteoporosis N Kidney Disease N Past Encounters Encounter ID Performer Location Encounter Start Date Encounter Closed Date Diagnosis/Indication Diagnosis SNOMED-CT Code Diagnosis ICD10 Code Diagnosis Note [id number] [place] [facility] [address] [address] 09/06/2016 13:08:59 09/06/2016 14:45:14 Low back pain 104012439 M54.5 Lumbar radiculopathy 128 514432 M54.16 Degenerati on of lumbar intervertebral disc 74232355 M51.36 [id number] [place] [facility] OFFICE-[facility] [address] [place] [address] 10/11/2016 14:40:59 10/11/2016 15:08:13 Lumbar radiculopathy 414626798 M54.16 Degenerati on of lumbar intervertebral disc 66987853 M51.36 [id number] [place] [facility] [address] [place] [address] 11/15/2016 15:14:02 11/15/2016 16:07:39 Lumbar radiculopathy 619124489 M54.16 Health Concerns Section Related Observation LastModified by Organization Detai ls LastModified Time None Recorded Concern Status LastModified by Organization Details LastModified Time None Recorded Advance Directives Directive None Recorded Payers Insurance Date Sequence Insurance Name Policy Number Policy Roberson Covered Member ID Roberson Member ID Guarantor Name 12/11/2016 1 CHARLES [id number] Chase Lupe Chavarria [id number] Chase Chavarria Notes Date Note Type [...] of bowel or bladder function [place] [facility] [address] [place], [address], [facility] - [facility]opa[facility] 09/06/2016 14:17:50 10/11/2016 text/html Mr Chavarria present s to the office today for follow-up of MRI results of his lumbar spine. He continues to complain of significant back pain that radiates into his lower extremities. [place] [facility] [address] [place], [address], [facility] 10/11/2016 15:06:24 11/15/2016 text/html Mr. Chavarria presen ts to the office today for follow-up he recently had an L4-[address] Gallegos. At presentation today he is doing extremely well he denies any back or leg pain. He is very happy. [place] [facility] [address] [place], [address], [facility] 11/15/2016 15:55:26
== END 2024-10-16 12:59 | disposition home or self-care (01) ==
LOC: HO.HMCH 10:37
PROVIDERS: PCP Internal Medicine; Visit Provider Internal Medicine
DX: H26.9 Unspecified cataract (principal); I10 Essential (primary) hypertension; E66.9 Obesity, unspecified; Z68.34 Body mass index [BMI] 34.0-34.9, adult; Z01.818 Encounter for other preprocedural examination; E78.00 Pure hypercholesterolemia, unspecified; K21.9 Gastro-esophageal reflux disease without esophagitis; N40.0 Benign prostatic hyperplasia without lower urinary tract symptoms; F17.200 Nicotine dependence, unspecified, uncomplicated

== ENCOUNTER 2024-10-19 15:57 | Outpatient (REF) | payer OTHER, SELFPAY ==
--- OUTSIDE RECORDS SUMMARY | 2024-10-19 16:55 | XMS_ITS | Data Portability ---
Author Organization [place] [facility] [place] [place], [place] Medicaid MRI Address [address] [place] [address] Care Team Providers Care Ranch Manager Name Role Phone HUGO VALADEZ Primary Care [...] tried and failed numerous conservative treatments including [id number] anti-inflammatorie s, prescription narcotics, as well as [...] Sincerely, Kushal Sanchez PA-C Orthopedic Spine Surgery [facility] Sp[facility] Not available 09/06/2016 14:17:28 10/11/2016 10/11/2016 MRI:[facility]. MRI of his lumbar spine demonstrates [...] Sincerely, Kushal Sanchez PA-C Orthopedic Spine Surgery [facility] Sp[facility] [email or web address] Not available 10/11/2016 15:05:57 11/15/2016 11/15/2016 Impression/Plan: [...] Sincerely, Kushal Sanchez PA-C Orthopedic Spine Surgery [facility] [email or web address] Not available 11/15/2016 15:55:05 Plan of Treatment Reminders Order Date Submit Date Provider Last Modified By Organization Details Last Modified Time Details Appointments None recorded. Lab None recorded. Referral None recorded. Procedures None recorded. Surgeries None recorded. Imaging XR, lumbosacral spine, 4 or more view 2016 017 In-Office Order, Internal Use Only DO Not Attach Compendium DO Not Attach Compendium, Do Not Delete/merge, [id number] 7 07:57:59 Medication Orders None recorded. Patient [...] Details Last Updated DateTime 09/06/2016 170.18 cm 59146.55 g 29.8 kg/m2 Alisha Huston [facility] 09/06/2016 13:29:11 Date Recorded Body height Body mass index (BMI) Body weight Provider Name and Address Organization Details Last Updated DateTime 10/11/2016 170.18 cm 29.8 kg/m2 46432.55 g Ana Luisa Spencer [facility] 10/11/2016 14:52:39 Date Recorded Body height Body mass index (BMI) Body weight Provider Name and Address Organization Details Last Updated DateTime 11/15/2016 170.18 cm 29.8 kg/m2 07589.55 g Ana Luisa Spencer [place] [facility] 11/15/2016 15:26:14 Social History Question Answer Notes LastModified by Organizat ion Details LastModified Time Tobacco Smoking Status Current Every Day Smoker Alisha Robel ibarra [place] [facility] 09/06/2016 13:29:54 Auto Related Injury? No [email or web address] Information not available 09/06/2016 What Was The Date Of Your Most Recent Tobacco Screening? 11/15/2016 Information n ot available 10/31/2018 How Much Tobacco Do You Smoke? 0.5 PPD [email or web address] Information not available 09/06/2016 Work Related Injury? No [email or web address] Information not available 09/06/2016 Sex: Unknown Functional Status Question Answer Note LastModified by Organizat ion Details LastModified Time What is your level of alcohol consumption? Occasional Information not available 09/06/2016 Are you currently employed? Yes [email or web address] Information not available 09/06/2016 Mental Status None recorded. Family History Relationship Description Onset Age of this Age Resolved Age Notes LastModified by Organization Details LastModified Time Mother Hypertensive disorder [email or web address] Not available 2016 13:29:43 Medical History Condition Response Hereditary Defects N Coronary Artery Disease N Gout N Tremors/Seizures/Dizziness/Epilepsy N Excessive Thirst/Fatigue N Lung Disease N Blood Clots N Fever, Chills, Headaches N Pacemaker N Heart Disease/Problems N Breathing Problems N Heart Attack ([place]) N Sexually Transmitted Diseases N Bleeding Disorder/Tendencies [...] SNOMED-CT Code Diagnosis ICD10 Code Diagnosis Note [id number] [place] [facility] [place] [address] [address] 09/06/2016 13:08:59 09/06/2016 14:45:14 Low back pain 747046881 M54.5 Lumbar radiculopathy 128 858292 M54.16 Degenerati on of lumbar intervertebral disc 01009571 M51.36 [id number] [place] OFFICE-[facility] [address] [place] [address] 10/11/2016 14:40:59 10/11/2016 15:08:13 Lumbar radiculopathy 414921619 M54.16 Degenerati on of lumbar intervertebral disc 09757691 M51.36 [id number] [place] [facility] [address] [place] [address] 11/15/2016 15:14:02 11/15/2016 16:07:39 Lumbar radiculopathy 533845693 M54.16 Health Concerns Section Related Observation LastModified by Organization Detai ls LastModified Time None Recorded Concern Status LastModified by Organization Details LastModified Time None Recorded Advance Directives Directive None Recorded Payers Insurance Date Sequence Insurance Name Policy Number Policy Roberson Covered Member ID Roberson Member ID Guarantor Name 12/11/2016 1 CHARLES [id number] Chase Lupe Chavarria [id number] Chase Chavarria Notes Date Note Type [...] bowel or bladder function [place] [facility] [address] [place], [address], [facility] - [facility]opaed[facility] 09/06/2016 14:17:50 10/11/2016 text/html Mr Chavarria present s to the office today for follow-up of MRI results of his lumbar spine. He continues to complain of significant back pain that radiates into his lower extremities. [place] [facility] [address] [place], [address], [facility] 10/11/2016 15:06:24 11/15/2016 text/html Mr. Chavarria presen ts to the office today for follow-up he recently had an L4-[address] Gallegos. At presentation today he is doing extremely well he denies any back or leg pain. He is very happy. [place] Contreras [address] [place], [address], [facility] 11/15/2016 15:55:26
[2024-10-19 17:56] LABS: Anion Gap 12 (12-20); Blood Urea Nitrogen 22 mg/dL (9-16); Calcium 8.8 mg/dL (8.4-10.2); Carbon Dioxide 23 mmol/L (22-29); Chloride 112 mmol/L (96-108); Estimated Glomerular Filt Rate > 60; Iron 57 mcg/dL (45-160); Percent Iron Saturation 19 % (15-50); Potassium 3.5 mmol/L (3.3-5.1); Sodium 143 mmol/L (135-145); Total Iron Binding Capacity 303 mcg/dL (228-428); Unsaturated Iron Binding 246 ug/dL
[2024-10-19 18:22] LABS: Hemoglobin 12.8 g/dl (14.0-18.0); NRBC Abs Auto 0.000 X10*3/uL (0.0-0.012); NRBC Pct Auto 0.0 /100WBC (0.0-0.2); PLT CLUMP 1; SCAN SMEAR FLAG 1
[2024-10-19 18:24] LABS: Hematocrit 36.6 % (42.0-52.0); Imm Gran Abs Auto 0.09 X10*3/uL (0.00-0.03); Imm Gran Pct Auto 1.1 % (0.0-0.4); Lymphocytes Absolute Auto 1.8 X10*3/uL (1.2-4.9); MANUAL DIFF FLAG SCAN; Mean Corpuscular HGB Conc 35.0 g/dl (31.0-36.0); Mean Corpuscular Hemoglobin 31.8 pg (27.0-33.0); Mean Corpuscular Volume 90.8 fL (80.0-98.0); Red Blood Count 4.03 X10*6/uL (4.60-5.80); Reticulocytes Absolute 0.086 X10*6/uL (0.026-0.095)
[2024-10-19 18:26] LABS: White Blood Count 8.1 X10*3/uL (4.8-10.8)
[2024-10-19 18:30] LABS: Folate 6.8 ng/mL (> or = 4.0); Vitamin B12 236 pg/mL (200-900)
[2024-10-19 18:34] LABS: Platelet Count 215 X10*3/uL (160-400)
[2024-10-20 07:34] LABS: Hemoglobin A1C 95.7244 umol/L; Total Hemoglobin (HGBA1C) 3408.1827 umol/L
== END 2024-10-19 15:58 | disposition home or self-care (01) ==
LOC: HO.LAB 15:57
PROVIDERS: PCP Internal Medicine; Visit Provider Internal Medicine
DX: Z01.818 Encounter for other preprocedural examination (principal)
CPT/HCPCS: 36415; 80048; 82607; 82746; 83036; 83540; 85025; 85045

== ENCOUNTER 2025-02-19 14:43 | Outpatient (AMB) | payer OTHER, SELFPAY ==
[2025-02-19 14:56] VITALS: BP 140/82; PULSE 112; TEMP 36.3; O2SAT 99; BMI 33.4
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
== END 2025-02-19 15:54 | disposition home or self-care (01) ==
LOC: HO.HMCH 14:44
PROVIDERS: PCP Internal Medicine; Visit Provider Internal Medicine
DX: Z00.00 Encounter for general adult medical examination without abnormal findings (principal); F17.200 Nicotine dependence, unspecified, uncomplicated; K21.9 Gastro-esophageal reflux disease without esophagitis; E66.9 Obesity, unspecified; I10 Essential (primary) hypertension; E78.00 Pure hypercholesterolemia, unspecified; N40.0 Benign prostatic hyperplasia without lower urinary tract symptoms; M54.50 Low back pain, unspecified; M75.22 Bicipital tendinitis, left shoulder; Z23 Encounter for immunization; Z68.33 Body mass index [BMI] 33.0-33.9, adult

== ENCOUNTER → 2025-02-19 14:43 | Outpatient (BNVA) | payer OTHER, SELFPAY | PROVIDERS: PCP Internal Medicine; Visit Provider Internal Medicine | DX: Z00.00 Encounter for general adult medical examination without abnormal findings (principal); R20.0 Anesthesia of skin; K21.9 Gastro-esophageal reflux disease without esophagitis; E66.9 Obesity, unspecified; I10 Essential (primary) hypertension; E78.00 Pure hypercholesterolemia, unspecified; N40.0 Benign prostatic hyperplasia without lower urinary tract symptoms; M75.22 Bicipital tendinitis, left shoulder; M54.16 Radiculopathy, lumbar region; M25.511 Pain in right shoulder; E53.8 Deficiency of other specified B group vitamins; F17.210 Nicotine dependence, cigarettes, uncomplicated; Z23 Encounter for immunization | CPT/HCPCS: 90471; 90714; 96127 ==

== ENCOUNTER 2025-03-02 06:24 | Outpatient (REF) | payer OTHER, SELFPAY ==
[2025-03-02 06:37] LABS: MANUAL DIFF FLAG NO
[2025-03-02 07:18] LABS: Hematocrit 42.0 % (42.0-52.0); Hemoglobin 14.1 g/dl (14.0-18.0); Imm Gran Abs Auto 0.02 X10*3/uL (0.00-0.03); Imm Gran Pct Auto 0.3 % (0.0-0.4); Lymphocytes Absolute Auto 1.5 X10*3/uL (1.2-4.9); Mean Corpuscular HGB Conc 33.6 g/dl (31.0-36.0); Mean Corpuscular Hemoglobin 31.1 pg (27.0-33.0); Mean Corpuscular Volume 92.5 fL (80.0-98.0); NRBC Abs Auto 0.000 X10*3/uL (0.0-0.012); NRBC Pct Auto 0.0 /100WBC (0.0-0.2); Platelet Count 273 X10*3/uL (160-400); Red Blood Count 4.54 X10*6/uL (4.60-5.80); White Blood Count 6.7 X10*3/uL (4.8-10.8)
[2025-03-02 07:22] LABS: Appearance Urine Clear; Glucose Urine UA Negative (Negative); PH 6.5 (5.0-9.0); Specific Gravity - Urine 1.020 (1.005-1.025)
[2025-03-02 07:49] LABS: Alanine Aminotransferase 29 U/L (0-40); Albumin Level 4.4 g/dL (3.5-5.0); Alkaline Phosphatase 104 U/L (39-117); Anion Gap 11 (12-20); Aspartate Amino Transferase 24 U/L (5-37); Blood Urea Nitrogen 17 mg/dL (9-16); Calcium 8.9 mg/dL (8.4-10.2); Carbon Dioxide 26 mmol/L (22-29); Chloride 108 mmol/L (96-108); Cholesterol 206 mg/dL (<200); Estimated Glomerular Filt Rate > 60; HDL Cholesterol 40 mg/dL (>40); Potassium 3.2 mmol/L (3.3-5.1); Sodium 142 mmol/L (135-145); Total Protein 7.0 g/dL (6.5-8.0); Triglycerides 166 mg/dL (<150)
[2025-03-02 08:09] LABS: Free T4 (Free Thyroxine) 1.15 ng/dL (0.71-1.85); Thyroid Stimulating Hormone 2.41 uIU/mL (0.32-4.0)
[2025-03-02 08:13] LABS: Folate 5.4 ng/mL (> or = 4.0); Vitamin B12 1223 pg/mL (200-900)
[2025-03-05 18:58] LABS: Intrinsic Factor Antibodies Negative (Negative)
== END 2025-03-02 06:25 | disposition home or self-care (01) ==
LOC: HO.LAB 06:24
PROVIDERS: PCP Internal Medicine; Visit Provider Internal Medicine
DX: Z12.5 Encounter for screening for malignant neoplasm of prostate (principal); Z13.1 Encounter for screening for diabetes mellitus; Z13.21 Encounter for screening for nutritional disorder; E78.00 Pure hypercholesterolemia, unspecified; R30.0 Dysuria
CPT/HCPCS: 36415; 80053; 80061; 81003; 82306; 82607; 82746; 83036; 83516; 84153; 84439; 84443; 85025; 86340

== ENCOUNTER 2025-03-10 06:49 | Outpatient (REF) | payer OTHER, SELFPAY ==
--- NOTE | ~2025-03-10 | XR_ITS ---
EXAMINATION: XR LUMBOSACRAL SPINE CLINICAL INFORMATION: M54.50 - Low back pain, unspecified COMPARISON: X-ray 02/06/2024 TECHNIQUE: Three views of the lumbosacral spine. FINDINGS: 5 nonrib-bearing lumbar type vertebral bodies. Vertebral body heights are maintained. No evidence of acute fracture. Mild grade 1 retrolisthesis of L3 on L4, minimal anterolisthesis of L4 on L5, stable. Mild-moderate L5-S1 disc degeneration, disc height loss. Vertebral body heights otherwise maintained. Facet degeneration in the lower lumbar spine. No suspicious bony lesions. XR/XR lumbar spine 2-3V IMPRESSION: No evidence of acute fracture. Mild-moderate L5-S1 disc degeneration, similar to previous. Electronically signed by: Dayday Nicolas MD 03/10/2025 01:06 PM ANNA NGUYEN
== END 2025-03-10 06:50 | disposition home or self-care (01) ==
LOC: HO.XRAY 06:49
PROVIDERS: PCP Internal Medicine; Visit Provider Internal Medicine
DX: M54.50 Low back pain, unspecified (principal)
CPT/HCPCS: 72100

== ENCOUNTER → 2025-03-10 06:54 | Outpatient (BNV) | payer OTHER, SELFPAY | PROVIDERS: PCP Internal Medicine; Visit Provider Radiology Diagnostic Ultrasound | DX: M51.370 Other intervertebral disc degeneration, lumbosacral region with discogenic back pain only (principal) | CPT/HCPCS: 72100 ==